=== PATIENT | female | born 1960 | race Caucasian/White ===

== ENCOUNTER 2018-06-04 16:30 | Outpatient (RCR) | payer BC, SELFPAY ==
--- NOTE | 2018-01-22 17:13 | HP.PTEVAL ---
Patient's Visit Information MASON BENJAMIN is a 57 year old F referred to Physical Therapy by Daniel Ca with a diagnosis of L RC tear biceps tendonitis s/p RCR 01/04. Date of Evaluation: 01/22/18 Physical Therapist: Lio Curiel DPT, OC - Visit Plan Frequency: 2x /Week Duration: 3 Months Plan: 2x/week for 10-12 weeks. PROM L shoulder and teach family if able. PROM until 02/04 then AAROM, ice and education on condition. - Subjective Subjective: L RCR 01/02 and biceps tendonitis clean up. Hurt it with years of pushing and pulling at work. Had 1 year of bad pain prior to repair. Nov first felt the pain when lifting parts at work. [employer] employee 29 years adn wants more years. Is off for a while, doctor did not specify how long. Now in a sling all the time, sleepign in it. No more abductor wedge needed. Icing daily. Has daily pain meds as needed. Oxycotin. Doing pendulum exercises 10 reps and table top cloth flexion, squeezing shoulder blades. Getting dressed is not easy but she can do it. Pulling things with R UE is difficult and slow but can do it. Can shower with R UE. R handed. Not many hobbies except walking. Enjoys riding [address]. wants to return to work. - Pain L shoulder. Pain Intensity (Out of 10): 8 Pain Intensity Range: 6, 8 Comment: constant - Objective PROM flexion 115, 90 abd, 35 ext rotationa ll with firm endfeels adn slight pain. Scapula moving well, squeezes are good, full elbow AROM on L slowly. Tendes to hold scap forward and elevated and tense in L UE. Strength in elbow and shoulder not tested. No concerns from patient with incision, no signs of excessive redness heat or swelling. Doffed brace I, Needed assist to Don it. Good squeeze of hand with both UE. R UE AROM WNL and strength 4+/5. - Goals Goal 1:: 0-160 PROM L shoulder Goal Time Frame: 2-4 Weeks Goal 2:: AROM WNL without hesitation Goal Time Frame: 6-8 Weeks Goal 3:: Pt sleep without interruption in bed Goal Time Frame: 4-6 Weeks Goal 4:: Pt dress I and don sling I Goal Time Frame: 2-4 Weeks Goal 5:: Plan to return to work Goal Time Frame: 12-16 Weeks - Rehabilitation Potential Physical Therapy Diagnosis: L RCR 01/04 Rehabilitation Potential: Good - Anticipated Interventions Patient/Client Instruction: Educate patient on: Condition, Plan of Care For the Purpose of:: To decrease pain, To increase ROM, To improve ability of physical actions for home/community/work/leisure Therapeutic Exercise to Include: Passive ROM Comment: GUEVARAOM in February For the Purpose of:: To decrease pain, To increase ROM Manual Therapy Techniques to Include: Scar massage, Passive ROM For the Purpose of:: To increase ROM Cryotherapy (ice pack, ice massage): Yes For the Purpose of:: To decrease pain, To decrease swelling/inflammation, To increase ROM Thank you for the opportunity to evaluate your patient. For Medicare and Medicare HMO plans, please review the plan of care and approve it. It will need to be FAXED BACK to us at [phone] for Medicare purposes. Please let me know if there are questions or concerns regarding this plan of care. Physician Signature: Date:
--- NOTE | 2018-02-19 17:25 | HP.PTREVAL_ITS ---
Daniel Ca, It has been my pleasure to treat MASON BENJAMIN over the last 9 visits for L RC tear biceps tendonitis s/p RCR 01/04. Please see the progress note below for an update on the physical therapy plan of care! Subjective: Ouchy. Biceps tendon is mostly ouchy . Out of sling. Saw doctor in 02/14 adn is now out of sling. Feels stiff in a.m. Loosens up with exercises. Objective/Function: 130 PROM flexion limited by soreness,. 125 abd limtied by soreness. 58 ext rotation limited by soreness. Feels worse lying on back then walking. Plan Plan: hold all exercises except scap circles adn squeezes, emphasize postrue and avoid use of L UE. Emphasize getting pain down vs HEP. If doign well (0-2 /10 pain), then reinitiate stick supine flexiona dn ext rotation later in week and progress slowly emphasizing postrue and relaxation. Continue AAROM as tolerated and move toward isometric strength. 1-2x/week for 4-8 weeks. Fair prognosis Goals Goal 1:: 0-160 PROM L shoulder Goal Time Frame: 2-4 Weeks Goal Progress: Progressing Goal 2:: AROM WNL without hesitation Goal Time Frame: 6-8 Weeks Goal 3:: Pt sleep without interruption in bed Goal Time Frame: 4-6 Weeks Goal 4:: Pt dress I and don sling I Goal Time Frame: 2-4 Weeks Goal Progress: Goal Met Goal 5:: Plan to return to work Goal Time Frame: 12-16 Weeks Anticipated Interventions Patient/Client Instruction: Educate patient on: Condition, Plan of Care For the Purpose of:: To decrease pain, To increase ROM, To improve ability of ph ysical actions for home/community/work/leisure Therapeutic Exercise to Include: Passive ROM Comment: AAROM in February For the Purpose of:: To decrease pain, To increase ROM Manual Therapy Techniques to Include: Scar massage, Passive ROM For the Purpose of:: To increase ROM Cryotherapy (ice pack, ice massage): Yes For the Purpose of:: To decrease pain, To decrease swelling/inflammation, To increase ROM Please do not hesitate to contact me at [phone] by phone or if you have questions or concerns regarding this new plan of care! Sincerely, Lio Curiel DPT, OC
--- NOTE | 2018-03-19 17:25 | HP.PTREVAL ---
Daniel Ca, It has been my pleasure to treat MASON BENJAMIN over the last 17 visits for L RC tear biceps tendonitis s/p RCR 01/04. Please see the progress note below for an update on the physical therapy plan of care! Subjective: Pain level is down, none , just stiff. Doctor and pt very happy with progress. HEP includes at this time edd stick OH supine and standing. Sees again May 14. Sleeping OK in chair as it is more comfortable. 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 Objective/Function: Full AROM L UE to 150 flexion and abductiona nd 70 ext rotation and L5 IR, stiff at end range. Weak to MMR flexiona dn abd and er and ir all at 3+ Plan Plan: 1-2x/week for 4 weeks for progression of in clinic adn home strength Goals Goal 1:: 0-160 PROM L shoulder Goal Time Frame: 2-4 Weeks Goal Progress: Progressing Goal 2:: AROM WNL without hesitation Goal Time Frame: 6-8 Weeks Goal Progress: Goal Met Goal 3:: Pt sleep without interruption in bed Goal Time Frame: 4-6 Weeks Goal Progress: in chair Goal 4:: Pt dress I and don sling I Goal Time Frame: 2-4 Weeks Goal Progress: Goal Met Goal 5:: Plan to return to work Goal Time Frame: 12-16 Weeks Goal Progress: Progressing Anticipated Interventions Patient/Client Instruction: Educate patient on: Condition, Plan of Care For the Purpose of:: To decrease pain, To increase ROM, To improve ability of physical actions for home/community/work/leisure Therapeutic Exercise to Include: Passive ROM Comment: AAROM in February For the Purpose of:: To decrease pain, To increase ROM Manual Therapy Techniques to Include: Scar massage, Passive ROM For the Purpose of:: To increase ROM Cryotherapy (ice pack, ice massage): Yes For the Purpose of:: To decrease pain, To decrease swelling/inflammation, To increase ROM Please do not hesitate to contact me at [phone] by phone or if you have questions or concerns regarding this new plan of care! Sincerely, Lio Curiel, DPT, OCS, CSCS
--- NOTE | 2018-04-16 18:02 | HP.PTREVAL ---
Daniel Ca, It has been my pleasure to treat MASON BENJAMIN over the last 21 visits for L RC tear biceps tendonitis s/p RCR 01/04. Please see the progress note below for an update on the physical therapy plan of care! Subjective: Gets some pain in L anterior shoulder. No pain just feels tight adn fatigues easily. GTB ex daily 3x10. Sleep is OK in bed. May 14. Off work until then. Activities t home are normal. Has not mopped on hands and knees yet. Objective/Function: Full aROM L shoulder to 160, IR is good but has some slight FW tipping of scap on L as compensation. Strength is 4+ bi and tri, 4- er, 4 IR adn 4- flexiona dn abd LLA. Plan Plan: weekly x3-4 for progression of HEP...next session WB quadruped and LLA felx/abd S/L ER to tolerance, then OH strength. Goals Goal 1:: 0-160 PROM L shoulder Goal Time Frame: 2-4 Weeks Goal Progress: Goal Met Goal 2:: AROM WNL without hesitation Goal Time Frame: 6-8 Weeks Goal Progress: Goal Met Goal 3:: Pt sleep without interruption in bed Goal Time Frame: 4-6 Weeks Goal Progress: Goal Met Goal 4:: Pt dress I and don sling I Goal Time Frame: 2-4 Weeks Goal Progress: Goal Met Goal 5:: Plan to return to work Goal Time Frame: 12-16 Weeks Goal Progress: Progressing Goal 6:: Pt show 4/5 flexion /abd/er strength adn able to WB L UE without pain to return to work. Goal Time Frame: 2-4 Weeks Anticipated Interventions Patient/Client Instruction: Educate patient on: Condition, Plan of Care For the Purpose of:: To decrease pain, To increase ROM, To improve ability of physical actions for home/community/work/leisure Therapeutic Exercise to Include: Passive ROM Comment: SEAN in February For the Purpose of:: To decrease pain, To increase ROM Manual Therapy Techniques to Include: Scar massage, Passive ROM For the Purpose of:: To increase ROM Cryotherapy (ice pack, ice massage): Yes For the Purpose of:: To decrease pain, To decrease swelling/inflammation, To increase ROM Please do not hesitate to contact me at [phone] by phone or if you have questions or concerns regarding this new plan of care! Sincerely, Lio Curiel, DPT, OCS, CSCS
--- NOTE | 2018-05-07 11:39 | HP.PTREVAL ---
Daniel Ca, It has been my pleasure to treat MASON BENJAMIN over the last 24 visits for L RC tear biceps tendonitis s/p RCR 01/04. Please see the progress note below for an update on the physical therapy plan of care! Subjective: Stiff this morning with movement, slept on it last night. Doing exercises regularly but didn't help much today. This is an unusual day. Getting stronger and doing exercises regualrly. Activities at home are normal. Pain is 0/10. To doctor May 14. 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 Objective/Function: 60 L rotation 70 R ext rotation,. 160 abductiona dn flexion. Full IR without pain. Strength L shoulder is 4+ abd and flexion at 90, 4 ext rotatuiona dn 5/5 IR, at 90 degree abd ext rotation is 4 adn IR is 4+. 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 BRAVO EE DOCTOR NEXT WEEK. Plan Plan: PT TO SEE DOCTOR IN ONE WEEK AND ATTEMPT TO RETURN TO WORK AFTER THAT IF ALLOWED. WILL F/U FOR D/C/EX PROGRESSION IN A MONTH AND CALL PRIOR IF ANYTHING GOES THE WRONG WAY. Goals Goal 1:: Returned to wrok without major concerns of pain or injury Goal Time Frame: 2-4 Weeks Goal Progress: NEW GOAL Goal 2:: AROM WNL without hesitation Goal Time Frame: 6-8 Weeks Goal Progress: Goal Met Goal 3:: Pt sleep without interruption in bed Goal Time Frame: 4-6 Weeks Goal Progress: Goal Met Goal 4:: Pt dress I and don sling I Goal Time Frame: 2-4 Weeks Goal Progress: Goal Met Goal 5:: Plan to return to work Goal Time Frame: 12-16 Weeks Goal Progress: Goal Met Goal 6:: Pt show 4/5 flexion /abd/er strength adn able to WB L UE without pain to return to work. Goal Time Frame: 2-4 Weeks Goal Progress: Goal Met Anticipated Interventions Patient/Client Instruction: Educate patient on: Condition, Plan of Care For the Purpose of:: To decrease pain, To increase ROM, To improve ability of physical actions for home/community/work/leisure Therapeutic Exercise to Include: Passive ROM Comment: SEAN in February For the Purpose of:: To decrease pain, To increase ROM Manual Therapy Techniques to Include: Scar massage, Passive ROM For the Purpose of:: To increase ROM Cryotherapy (ice pack, ice massage): Yes For the Purpose of:: To decrease pain, To decrease swelling/inflammation, To increase ROM Please do not hesitate to contact me at [phone] by phone or if you have questions or concerns regarding this new plan of care! Sincerely, Lio Curiel, DPT, OCS, CSCS
--- NOTE | 2018-06-04 16:50 | HP.PTDCSUM ---
HP - PT D/C Summary It has been my pleasure to treat MASON BENJAMIN under orders from Daniel Ca, for the diagnosis of L RC tear biceps tendonitis s/p RCR 01/04 for a total of 25 visit(s). Discharge Date: 06/04/18 Please see the following information for a summary of their discharge status. - Subjective Subjective: Shoulder stiff adn sore since back to work on 05/14. Doctor told her it would hurt. Hurts 5/10 after work for about an hour. Then it feels OK. Exercises going OK with GTB x10. Daily. Sleep is OK. No other activities bother it. 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 - Pain L shoulder. Pain Intensity (Out of 10): 0 - Overall Improvement % Improvement: 90 - Objective Objective/Function: 60 ext rotation, full IR, 160 abd and flexion. Strength is 4+/5 L shoulder except ext rotationa dn triceps 4/5. Good function and doing well. - Goals Goal 1:: Returned to wrok without major concerns of pain or injury Goal Progress: Goal Met Goal 2:: AROM WNL without hesitation Goal Progress: Goal Met Goal 3:: Pt sleep without interruption in bed Goal Progress: Goal Met Goal 4:: Pt dress I and don sling I Goal Progress: Goal Met Goal 5:: Plan to return to work Goal Progress: Goal Met Goal 6:: Pt show 4/5 flexion /abd/er strength adn able to WB L UE without pain to return to work. Goal Progress: Goal Met - Plan Plan: D/C - D/C Information Discharge Comments: Pt doing well with near full ROM and quality strength. Tolerating work as ecpected adn willc all doctor if things worsen. expecting slow improvements over the next 3-4 months with continued exercises. If there are questions or concerns regarding this patient's physical therapy, please feel free to call me at [phone]. Thank you for the referral of this patient. Sincerely, Lio Curiel, DPT, OCS, CSCS
== END 2018-06-04 19:00 | disposition home or self-care (01) ==
LOC: PT 16:30
PROVIDERS: Family Provider Preventive Medicine Occupational Medicine; PCP Preventive Medicine Occupational Medicine; Referring Provider Orthopaedic Surgery Hand Surgery; Visit Provider Orthopaedic Surgery Hand Surgery
DX: M75.22 Bicipital tendinitis, left shoulder (principal); M75.102 Unspecified rotator cuff tear or rupture of left shoulder, not specified as traumatic
CPT/HCPCS: 97110; 97140; 97162; 97530

== ENCOUNTER → 2018-07-17 16:42 | Outpatient (CLI) | payer BC, SELFPAY ==
--- NOTE | 2018-07-17 16:50 | RAD_ITS ---
STUDY: X-RAY - ORBITS REASON FOR EXAM: Female, 58 years old. This study is being performed as a clearance examination for exclusion of orbital metal, prior to the performance of an MRI examination. TECHNIQUE: 2 view(s) of the orbits were obtained. COMPARISON: None. FINDINGS: Normal bilateral orbits without a metallic orbital foreign body. Normal visualized facial bones. Normal paranasal sinuses. The soft tissue structures are unremarkable. RAD/Orbits for Foreign Body IMPRESSION: No demonstrated metallic orbital foreign body. The patient is cleared for an MRI examination. Electronically Signed: Donato Gonsales MD at 17:05 EDT , Service support ,
== END ==
PROVIDERS: Family Provider Preventive Medicine Occupational Medicine; PCP Preventive Medicine Occupational Medicine; Referring Provider Orthopaedic Surgery Hand Surgery; Visit Provider Orthopaedic Surgery Hand Surgery
DX: Z01.818 Encounter for other preprocedural examination (principal); M75.102 Unspecified rotator cuff tear or rupture of left shoulder, not specified as traumatic; G56.13 Other lesions of median nerve, bilateral upper limbs
CPT/HCPCS: 70030

== ENCOUNTER 2018-09-04 17:30 | Outpatient (RCR) | payer BC, SELFPAY ==
--- NOTE | 2018-08-14 17:29 | HP.PTEVAL ---
Patient's Visit Information MASON BENJAMIN is a 58 year old F referred to Physical Therapy by MONCHO SIMS with a diagnosis of radiculopathy of c-spine and spinal stenoisi of c-spine. Date of Evaluation: 08/14/18 Physical Therapist: MANPREET Gaspar - Visit Plan Frequency: 2x /Week Duration: 4 Weeks Plan: 2X/ week for 3-4 weeks for postural exercises, US to the c-spine paraspinals and mid trap region with MT to the same X 3 sessions, symptoms free stretching wtih HEP. - Subjective Findings: Hurt Bicep Set 2016 at work. Got her bicep and RC fixed on the L shoulder in Dec 2017. Currently she has L sided neck pain and R occ neck pain. L hands are numb and tingling. SHe can get N&T B hands and legs. It is mostly L sided but can be R sided. SHe had an MRI and it showed a pinch nerve and Dr wants PT. She has to stand for 10 hours at work and she is worse after that unless she can sit down inbetween. She reports that she has not noticed any weakness in B legs or arms. She can sleep at night. She has a body pillow that she had for her shoulder. She reports that she get PADILLA sometimes (slight) and she usually does not get those. SHe is R handed. Not complaining of pain in arms or neck today but states that it is more annoying and she occ gets some burning. Steroids did not help. Pt feels like there are bugs crawling on her legs. - Pain neck pain Pain Intensity (Out of 10): 0 R arm pain Pain Intensity (Out of 10): 0 L arm pain Pain Intensity (Out of 10): 0 - Objective C-spine AROM: flex 100%, ext 75%, Rot B 75%, SB B 75%. Posture: sit s with fw head and rounded shoulders. UE MMT: Shld flex, abd 4/5 B, ER L 4-/5 and R 4/5, IR B 4/5. Bicep relfexes: 2+/3 B. R handed;;; Behavioral Therapy Coordinator strength: R 50# and L 51#. No pain with sub occip release. Slight distraction caused R hand to feel worse and L hand to feel better. Supine neck retraction caused B feet to get N&T. Pt is able to walk on heels and toes. - Goals Goal 1:: I HEP Goal Time Frame: 4-6 Weeks Goal 2:: Decrease neck and B arm pain by 50% Goal Time Frame: 4-6 Weeks Goal 3:: Sit with upright posture during treatment sessons Goal Time Frame: 4-6 Weeks - Rehabilitation Potential Rehabilitation Potential: Good - Anticipated Interventions Thank you for the opportunity to evaluate your patient. For Medicare and Medicare HMO plans, please review the plan of care and approve it. It will need to be FAXED BACK to us at [phone] for Medicare purposes. For Medicare only, by signing this I certify the plan of care. Please let me know if there are questions or concerns regarding this plan of care. Physician Signature: Date:
--- NOTE | 2018-09-04 18:00 | HP.PTDCSUM ---
HP - PT D/C Summary It has been my pleasure to treat MASON BENJAMIN under orders from MONCHO SIMS, for the diagnosis of radiculopathy of c-spine and spinal stenoisi of c-spine for a total of 7 visit(s). Discharge Date: 09/04/18 Please see the following information for a summary of their discharge status. - Subjective Subjective: Pt reports that she is still getting N&T in arms and R espinal. Her feet are some N&T. Pt pain comes and goes and yesterday was a bad day and she could hardly walk but the day before she could stand. - Pain neck pain Pain Intensity (Out of 10): 5 R arm pain Pain Intensity (Out of 10): 5 L arm pain Pain Intensity (Out of 10): 5 - Overall Improvement % Improvement: 0 - Objective Objective/Function: Posture: sit with more upright posture. Discussed lack of progress and how important it is to discuss symptoms with MD and to follow up peewee ( September 11 possible). - Goals Goal 1:: I HEP Goal Progress: Goal Met Goal 2:: Decrease neck and B arm pain by 50% Goal Progress: Not Progressing Goal 3:: Sit with upright posture during treatment sessons Goal Progress: Goal Met - Plan Plan: DC PT for physician reassessment. - D/C Information Discharge Comments: DC PT If there are questions or concerns regarding this patient's physical therapy, please feel free to call me at [phone]. Thank you for the referral of this patient. Sincerely, Beronica Chacon, MANPREET
== END 2018-09-04 19:00 | disposition home or self-care (01) ==
LOC: PT 17:30
PROVIDERS: Family Provider Preventive Medicine Occupational Medicine; PCP Preventive Medicine Occupational Medicine
DX: M54.12 Radiculopathy, cervical region (principal); M48.02 Spinal stenosis, cervical region
CPT/HCPCS: 97035; 97110; 97140; 97162; 97530

== ENCOUNTER → 2018-09-19 | Outpatient (CLI) | payer BC, SELFPAY ==
--- NOTE | 2018-09-19 16:42 | EKG12_ITS ---
Test Reason : PRE OP Blood Pressure : / mmHG Vent. Rate : 062 BPM Atrial Rate : 062 BPM P-R Int : 170 ms QRS Dur : 076 ms QT Int : 408 ms P-R-T Axes : 068 016 061 degrees QTc Int : 414 ms Sinus rhythm with Premature atrial complexes Otherwise normal ECG Confirmed by ARYAN HARO, FLOR ([id number]), editorial cartoonist FRANCES AYALA ([id number]) on 09/24/2018 2:22:31 PM Referred By: MONCHO SIMS Confirmed By:FLOR BAEZA MD
[2018-09-19 17:07] LABS: Absolute Lymphocyte Count 2.26 X10^3/ul (0.83-4.51); Absolute Neutrophil Count 5.2 X10^3/uL (2.0-7.7); Basophil# 0.06 X10^3/uL; Basophil% 0.7 % (0-1); Eosinophil# 0.23 X10^3/uL; Eosinophils% 2.7 % (0-5); Hematocrit 36.9 % (37-47); Hemoglobin 12.1 g/dl (12.0-15.0); Lymphocyte # 2.26 X10^3/ul (4.0); Lymphocyte % 26.3 % (19-41); Mean Corp Hgb Conc 32.8 g/gl (32-36); Mean Corpuscular Hgb 29.7 pg (27.0-32.0); Mean Corpuscular Volume 90.7 fL (81-99); Mean Platelet Vol. 10.7 fl (6.2-12.0); Monocyte# 0.82 X10^3/uL; Monocyte% 9.5 % (0-10); Neutrophil # 5.22 X10^3/uL (2.7-7.7); Neutrophil % 60.7 % (47-70); Platelet Count 178 K/mm3 (150-450); RBC Distribution Width CV 12.8 % (11.6-14.6); RBC Distribution Width SD 42.5 fl (35.1-43.9); Red Blood Count 4.07 M/mm3 (4.2-5.4); White Blood Count 8.6 K/mm3 (4.4-11.0)
[2018-09-19 17:12] LABS: POSITIVE COUNT NO; POSITIVE DIFFERENTIAL NO; POSITIVE MORPHOLOGY NO
[2018-09-19 17:34] LABS: Anion Gap 8 (5-15); BUN 15 mg/dL (7-18); BUN/Creat Ratio 22.5 RATIO (10-20); Calcium,Total 8.9 mg/dL (8.5-10.1); Chloride 105 mmol/L (98-107); Creatinine, Serum 0.67 mg/dL (0.55-1.02); EST Glomerular Filtration Rate 96 mL/min (>60); Est Glom Filt Rate - Afr Amer 116 mL/min (>60); Glucose 81 mg/dL (74-106); Potassium 3.8 mmol/L (3.5-5.1); Sodium Level 140 mmol/L (136-145)
== END | disposition home or self-care (01) ==
PROVIDERS: Family Provider Preventive Medicine Occupational Medicine; PCP Preventive Medicine Occupational Medicine
DX: M54.12 Radiculopathy, cervical region (principal); M48.02 Spinal stenosis, cervical region; M51.17 Intervertebral disc disorders with radiculopathy, lumbosacral region
CPT/HCPCS: 36415; 80048; 85025; 93005

== ENCOUNTER 2018-12-19 09:00 | Outpatient (RCR) | payer BC, SELFPAY ==
--- NOTE | 2018-11-07 13:48 | HP.PTEVAL_ITS ---
Patient's Visit Information MASON BENJAMIN is a 58 year old F referred to Physical Therapy by MONCHO DOOLEY with a diagnosis of RADICULOPATHY CERVICAL,SPINAL STENOSIS ,CERVICAL ,INTERVERTBRAL DISC. Date of Evaluation: 11/07/18 Physical Therapist: Jose Oden, PT, Cert MDT, OCS - Visit Plan Frequency: 2x /Week Duration: 6 Weeks Plan: S/P CERVICAL FUSION SEPTEMBER 25. PT INERVENTION CERVICAL ROM/POSTURAL EX'S,STRENGTHENING,MODALITIES PRN - Subjective Findings: This 58 y/o female presents to physical therapy with cervical radiculopathy . This patient underwent s/p cervical fusion C5-6 anterior approach on September [address] Dooley at [facility]. Patient d/c DOS with cervical collar ~ 6 weeks . Then seen on 11/06/18 doing well x-rays looked ,and no lifting heaving overhead. Prior to surgery cervical pain and radicular symptoms. Pateint had MRI stenosis . Patient tried PT not helping. Pateint denies PADILLA/Tinnutis/nausea. Patient has parathesia/tingling in hands . Pateint sleeping okay. Pateint cervical surgery affects ability to RTW ,housework tasks . Patient RTD Jan 03.Patient condition surgery affects QOL. SOCAIL: . 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 INSCION: anterior approach intact. NEURO: c/o parathesai/tingling fingers ,reflexes C5-6 1/3,C7 2/3. PALAPTION: tender UT/levator. AROM : BUE WFL. CERVICAL ROM: flexion min loss,lateral flexion/rotation mod,extension. MMT: BUE GROSSLY 4/5,shoulder 4-/5 - Special Tests C/S Radiculapathy - Left Upper limb tension test: Negative C/S Radiculapathy - Right Upper limb tension test: Negative - Goals Goal 1:: Independant with HEP Goal Time Frame: 4-6 Weeks Goal 2:: Improve posture for ADL'S and job demnads . Goal Time Frame: 4-6 Weeks Goal 3:: Patient improve cervical ROM to improve function of recovery Goal Time Frame: 4-6 Weeks Goal 4:: Patient increase strength UE to 4+/5 to improve function with job ddemnads. Goal Time Frame: 4-6 Weeks Goal 5:: Patient to improve neck owestry score by 5 points to improve QOL and RTW. Goal Time Frame: 4-6 Weeks - Rehabilitation Potential Physical Therapy Diagnosis: This patient underwent s/p cervial fusion with decrease strength,ROM and function to return to job demands thus benifit from sk illed PT Rehabilitation Potential: Good - Anticipated Interventions Patient/Client Instruction: Educate patient on: Condition, Plan of Care For the Purpose of:: To decrease pain, To increase ROM, To improve muscle performance and motor function, To improve ability to perform ADL's, To increase tolerance to activity/condition/position, To improve ability of physical actions for home/community/work/leisure, To improve health of tissue, To decrease soft tissue restriction, To increase flexibility/ROM, To improve ability to perform tasks related to life management Therapeutic Exercise to Include: Strength training, Postural training, Flexibilty training, Active ROM For the Purpose of:: To decrease pain, To increase ROM, To improve muscle performance and motor function, To improve ability to perform ADL's, To improve ability of physical actions for home/community/work/leisure, To improve health of tissue, To decrease soft tissue restriction, To increase flexibility/ROM, To improve ability to perform tasks related to life management TENS: Yes IF ES: Yes Cryotherapy (ice pack, ice massage): Yes Thermo therapy (hot pack): Yes Ultrasound (thermal/non thermal): Yes For the Purpose of:: To decrease pain, To increase ROM, To improve health of tissue, To decrease soft tissue restriction, To increase flexibility/ROM Thank you for the opportunity to evaluate your patient. For Medicare and Medicare HMO plans, please review the plan of care and approve it. It will need to be FAXED BACK to us at [phone] for Medicare purposes. For Medicare only, by signing this I certify the plan of care. Please let me know if there are questions or concerns regarding this plan of care. Physician Signature: Date:
--- NOTE | 2018-12-19 09:44 | HP.PTDCSUM ---
HP - PT D/C Summary It has been my pleasure to treat MASON BENJAMIN under orders from MONCHO SIMS, for the diagnosis of RADICULOPATHY CERVICAL,SPINAL STENOSIS ,CERVICAL ,INTERVERTBRAL DISC for a total of 12 visit(s). Discharge Date: 12/19/18 Please see the following information for a summary of their discharge status. - Subjective Subjective: Patient reports parathesia lower legs and fingers. Doing better overall. - Pain Bilateral Pain Intensity (Out of 10): 3 - Overall Improvement % Improvement: 60 - Objective Objective/Function: POSTURE: WFL. PALPATION: TENDER UT. NEURO: c/o parathesia in fingers. AROM: BUE. MMT: BUE 4/5. CERVICAL ROM: flexion min loss,rotation/lateral flexion mod loss,extension mod loss - Goals Goal 1:: Independant with HEP Goal Progress: Goal Met Goal 2:: Improve posture for ADL'S and job demnads . Goal Progress: Goal Met Goal 3:: Patient improve cervical ROM to improve function of recovery Goal Progress: Goal Met Goal 4:: Patient increase strength UE to 4+/5 to improve function with job ddemnads. Goal Progress: Progressing Goal 5:: Patient to improve neck owestry score by 5 points to improve QOL and RTW. Goal Progress: Goal Met - Plan Plan: D/C TO HEP - D/C Information Discharge Comments: HEP If there are questions or concerns regarding this patient's physical therapy, please feel free to call me at [phone]. Thank you for the referral of this patient. Sincerely, Jose Oden, PT, Cert MDT, OCS
== END 2018-12-19 10:32 | disposition home or self-care (01) ==
LOC: PT 09:00
PROVIDERS: Family Provider Preventive Medicine Occupational Medicine; PCP Preventive Medicine Occupational Medicine
DX: M54.12 Radiculopathy, cervical region (principal); M48.02 Spinal stenosis, cervical region
CPT/HCPCS: 97110; 97162; 97530

== ENCOUNTER 2019-05-15 05:29 | Emergency (ER) | payer BC, SELFPAY ==
[2019-05-15 05:35] VITALS: BP 140/90; PULSE 81; RESP 20; TEMP 36.8; O2SAT 94; BMI 29.0
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
[2019-05-15 08:00] VITALS: BP 116/74; PULSE 65; RESP 16; O2SAT 94
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
[2019-05-15 08:22] LABS: Absolute Lymphocyte Count 1.04 X10^3/uL (0.83-4.51); Absolute Neutrophil Count 10.3 X10^3/uL (2.0-7.7); Basophil# 0.04 X10^3/uL; Basophil% 0.3 % (0-1); Eosinophil# 0.01 X10^3/uL; Eosinophils% 0.1 % (0-5); Hematocrit 44.4 % (37-47); Hemoglobin 14.3 g/dL (12.0-15.0); Lymphocyte # 1.04 X10^3/ul (4.0); Lymphocyte % 8.5 % (19-41); Mean Corp Hgb Conc 32.2 g/dL (32-36); Mean Corpuscular Hgb 29.7 pg (27.0-32.0); Mean Corpuscular Volume 92.3 fL (81-99); Mean Platelet Vol. 10.6 fl (6.2-12.0); Monocyte# 0.78 X10^3/uL; Monocyte% 6.4 % (0-10); NRBC Flagged by Analyzer 0 % (0-5); Neutrophil % 84.5 % (47-70); Platelet Count 205 K/mm3 (150-450); RBC Distribution Width CV 12.1 % (11.6-14.6); RBC Distribution Width SD 41.1 fl (35.1-43.9); Red Blood Count 4.81 M/mm3 (4.2-5.4); White Blood Count 12.2 K/mm3 (4.4-11.0)
--- NOTE | 2019-05-15 08:26 | NURSING ---
FAXED MRI PAPERS TO THEM
[2019-05-15 08:30] LABS: BUN 10 mg/dL (7-18); Creatinine, Serum 0.58 mg/dL (0.55-1.02); EST Glomerular Filtration Rate 112 mL/min (>60); Estimated Creatinine Clearance 95.35 ml/min; Glucose 108 mg/dL (74-106)
[2019-05-15 08:31] LABS: Anion Gap 5 (5-15); BUN/Creat Ratio 17.2 RATIO (10-20); Calcium,Total 9.5 mg/dL (8.5-10.1); Chloride 108 mmol/L (98-107); Est Glom Filt Rate - Afr Amer 136 mL/min (>60); Potassium 4.1 mmol/L (3.5-5.1); Sodium Level 141 mmol/L (136-145)
[2019-05-15 10:18] VITALS: BP 150/73; PULSE 71; RESP 68; O2SAT 95
== END 2019-05-15 10:42 | disposition home or self-care (01) ==
PROVIDERS: Emergency Medicine; Emergency Provider Emergency Medicine; PCP Preventive Medicine Occupational Medicine
DX: S80.11XA Contusion of right lower leg, initial encounter (principal); S09.90XA Unspecified injury of head, initial encounter; E03.9 Hypothyroidism, unspecified; V89.2XXA Person injured in unspecified motor-vehicle accident, traffic, initial encounter; Z72.0 Tobacco use
CPT/HCPCS: 70450; 70551; 71045; 72125; 73590; 80048; 85025; 99285; A4216

== ENCOUNTER → 2020-01-09 15:12 | Outpatient (CLI) | payer BC, SELFPAY ==
[2020-01-09 15:16] LABS: Bacteria 0 SEEN /hpf (None Seen); Mucous, Urine 0 SEEN /hpf (<or=2+); Red Blood Cells-Urine 0 SEEN /hpf (0-5); Squamous Epithelial Cells - UA 0 SEEN /hpf (5-10); White Blood Cells 0 SEEN /hpf (0-5)
[2020-01-09 17:44] LABS: Absolute Lymphocyte Count 1.72 X10^3/uL (0.83-4.51); Absolute Neutrophil Count 3.4 X10^3/uL (2.0-7.7); Basophil# 0.07 X10^3/uL; Basophil% 1.2 % (0-1); Eosinophil# 0.18 X10^3/uL; Hematocrit 44.4 % (37-47); Lymphocyte # 1.72 X10^3/ul (4.0); Lymphocyte % 29.1 % (19-41); Mean Corp Hgb Conc 31.5 g/dL (32-36); Mean Corpuscular Hgb 29.4 pg (27.0-32.0); Mean Corpuscular Volume 93.1 fL (81-99); Mean Platelet Vol. 11.4 fl (6.2-12.0); Monocyte# 0.58 X10^3/uL; Monocyte% 9.8 % (0-10); NRBC Flagged by Analyzer 0 % (0-5); Neutrophil # 3.36 X10^3/uL (2.7-7.7); Neutrophil % 56.7 % (47-70); Platelet Count 191 K/mm3 (150-450); RBC Distribution Width CV 12.5 % (11.6-14.6); RBC Distribution Width SD 42.7 fl (35.1-43.9); Red Blood Count 4.77 M/mm3 (4.2-5.4); White Blood Count 5.9 K/mm3 (4.4-11.0)
[2020-01-09 17:48] LABS: Color, Urine Straw (Yellow); Glucose, Dipstick Normal (Normal); Ketone-Dipstick Negative (Negative); Leukocyte Esterase-Dipstick Negative /ul (Negative); Nitrite-Dipstick Negative (Negative); Occult Blood-Urine Negative /ul (Negative); Protein-Dipstick Negative (Negative); Specific Gravity, Urine 1.005 (1.002-1.030); Urine Bilirubin Dipstick Negative (Negative); Urine Clarity Clear (Clear); Urine Urobilinogen Normal (Normal)
[2020-01-09 18:10] LABS: ALB/GLOB Ratio 1.1 RATIO (0.9-2.4); AST(SGOT) 17 U/L (15-37); Alanine Aminotransfer ALT/SGPT 26 U/L (13-56); Alkaline Phosphatase 67 U/L (45-117); Anion Gap 5 (5-15); BUN 12 mg/dL (7-18); BUN/Creat Ratio 19.2 RATIO (10-20); Calcium,Total 9.3 mg/dL (8.5-10.1); Chloride 105 mmol/L (98-107); Cholesterol 178 mg/dL (200); Creatinine, Serum 0.62 mg/dL (0.55-1.02); EST Glomerular Filtration Rate 103 mL/min (>60); Est Glom Filt Rate - Afr Amer 124 mL/min (>60); Globulin 3.8 g/dL (2.2-4.2); Glucose 59 mg/dL (74-106); High Density Lipoprotein 75 mg/dL; Potassium 3.9 mmol/L (3.5-5.1); Protein, Total 7.8 g/dL (6.4-8.2); Sodium Level 141 mmol/L (136-145); T4 Free Direct 1.69 ng/dL (0.76-1.46); Thyroid Stim Hormone (TSH) 0.01 uIU/mL (0.358-3.74); Triglycerides 63 mg/dL; Very Low Density Lipoprotein 13 mg/dL (5-40)
[2020-01-19 21:47] LABS: Anti-Thyroglobulin AB 41.8 IU/mL (0.0-0.9); Thyroid Peroxidase AB < 9 IU/mL (0-34)
[2020-01-19 21:48] LABS: Thyroglobulin RIA 5.5 ng/mL (.)
== END ==
PROVIDERS: PCP Family Medicine; Referring Provider Family Medicine; Visit Provider Family Medicine
DX: E03.9 Hypothyroidism, unspecified (principal); Z72.0 Tobacco use
CPT/HCPCS: 36415; 80053; 80061; 81001; 84432; 84439; 84443; 85025; 86376; 86800

== ENCOUNTER → 2020-02-06 12:31 | Outpatient (CLI) | payer BC, SELFPAY ==
--- NOTE | 2020-02-06 12:32 | BI_ITS ---
MAMMOGRAPHY - BILATERAL SCREENING REASON FOR EXAM: Female, 59 years old. Routine annual screening examination. PERTINENT HISTORY: Screening TECHNIQUE: Digital bilateral breast heri (3D mammographic acquisition) in the CC and MLO projections. 2-D mediolateral oblique (MLO) and craniocaudad (CC) views of both breasts were obtained. CAD: Full Field Digital Mammography with Computer Added Detection was performed. COMPARISON: None. FINDINGS: Breast Composition: Heterogeneous There are no dominant masses or suspicious calcifications. No other significant abnormalities are identified. BI/SCREEN MAMM (CAD) W/HERI BILAT IMPRESSION: Stable bilateral screening mammogram. Yearly follow-up mammogram recommended. (A) ASSESSMENT CATEGORY: BIRADS Category 1: Negative. A letter regarding these results will be sent to the patient by the facility within 30 days. Approximately 10% of breast cancers are not detected by mammography. A normal mammogram should not delay biopsy of a clinically suspicious abnormality. [id number] Electronically Signed: Gerry Hamilton, at 17:11 EST Tel , Service support ,
== END ==
PROVIDERS: PCP Family Medicine; Referring Provider Family Medicine; Visit Provider Family Medicine
DX: Z12.31 Encounter for screening mammogram for malignant neoplasm of breast (principal)
CPT/HCPCS: 77063; 77067

== ENCOUNTER → 2020-04-07 15:42 | Outpatient (CLI) | payer BC, SELFPAY ==
[2020-04-07 18:55] LABS: T4 Free Direct 1.45 ng/dL (0.76-1.46); Thyroid Stim Hormone (TSH) 0.28 uIU/mL (0.358-3.74)
== END ==
PROVIDERS: PCP Family Medicine; Referring Provider Family Medicine; Visit Provider Family Medicine
DX: Z01.419 Encounter for gynecological examination (general) (routine) without abnormal findings (principal); E03.8 Other specified hypothyroidism
CPT/HCPCS: 36415; 84439; 84443

== ENCOUNTER → 2020-04-15 15:36 | Outpatient (CLI) | payer BC, SELFPAY ==
--- NOTE | 2020-04-15 15:45 | BD_ITS ---
STUDY: DUAL ENERGY X-RAY ABSORPTIOMETRY / DXA REASON FOR EXAM: Female, 60 years old. Patient unsure of bailey age she states she still spots. Pat is 185.1# and 64.5 and quot; a loss of .5 and quot; per pat. Has been a smoker for yrs. Takes a thyroid med. Does not exercise. TECHNIQUE: Bone Mineral Density (BMD) measurements of lumbar spine and bilateral hips were obtained. COMPARISON: None. FINDINGS: Lumbar Spine (L1-L4): g/cm2 (1.293) / T-score (0.8) / Z-score (2.1) Findings are suggestive of normal bone density with a low fracture risk. Left Femur Total: g/cm2 (1.165) / T-score (1.2) / Z-score (2.3) Left Femoral Neck: g/cm2 (1.151) / T-score (0.8) / Z-score (2.1) Right Femur Total: g/cm2 (1.134) / T-score (1.0) / Z-score (2.0) Right Femoral Neck: g/cm2 (1.030) / T-score (-0.1) / Z-score (1.3) BD/Dexa Bone Density Study IMPRESSION: The patient is considered normal as outlined below according to World Kevin Organization (WHO) criteria with a low fracture risk. Reference Information: The T-score is the number of standard deviations above or below the standard which is normal for young adults at their peak bone mineral density. The World Health Organization (WHO) interprets the T-scores as follows: Above -1 Normal bone density Between -1 and -2.5 Osteopenia Equal to / or below -2.5 Osteoporosis As a practical clinical guideline, osteopenia may be graded as follows: Mild -1 through -1.5 Moderate -1.6 through -2.0 Severe -2.1 through -2.4 The Z-score is the number of standard deviations above or below age-matched controls. A Z-score of less than -1.5 would be considered abnormal. References: 1. NIH Osteoporosis and Related Bone Diseases www osteo.org 2. International Society for Clinical Densitometry www iscd.org 3. National Osteoporosis Foundation www nof.org Electronically Signed: Abdulaziz Brizuela MD at 9:39 EST , Service support ,
== END ==
PROVIDERS: PCP Family Medicine; Referring Provider Family Medicine; Visit Provider Family Medicine
DX: Z78.0 Asymptomatic menopausal state (principal)
CPT/HCPCS: 77080

== ENCOUNTER → 2020-10-01 09:47 | Outpatient (CLI) | payer BC, SELFPAY ==
[2020-10-01 12:16] LABS: Absolute Lymphocyte Count 1.44 X10^3/uL (0.83-4.51); Absolute Neutrophil Count 3.3 X10^3/uL (2.0-7.7); Basophil# 0.05 X10^3/uL; Basophil% 0.9 % (0-1); Eosinophil# 0.12 X10^3/uL; Eosinophils% 2.2 % (0-5); Hematocrit 42.1 % (37-47); Hemoglobin 13.6 g/dL (12.0-15.0); Lymphocyte # 1.44 X10^3/ul (0.83-4.51); Lymphocyte % 26.4 % (19-41); Mean Corp Hgb Conc 32.3 g/dL (32-36); Mean Corpuscular Hgb 30.1 pg (27.0-32.0); Mean Corpuscular Volume 93.1 fL (81-99); Mean Platelet Vol. 11.2 fl (6.2-12.0); Monocyte# 0.51 X10^3/uL; Monocyte% 9.4 % (0-10); NRBC Flagged by Analyzer 0 % (0-5); Neutrophil # 3.32 X10^3/uL (2.7-7.7); Neutrophil % 60.9 % (47-70); Platelet Count 191 K/mm3 (150-450); RBC Distribution Width CV 12.2 % (11.6-14.6); RBC Distribution Width SD 42.4 fl (35.1-43.9); Red Blood Count 4.52 M/mm3 (4.2-5.4); White Blood Count 5.5 K/mm3 (4.4-11.0)
[2020-10-01 12:39] LABS: ALB/GLOB Ratio 1.1 RATIO (0.9-2.4); AST(SGOT) 27 U/L (15-37); Alanine Aminotransfer ALT/SGPT 27 U/L (13-56); Albumin, Serum 3.8 g/dL (3.2-5.0); Alkaline Phosphatase 63 U/L (45-117); Anion Gap 7 (5-15); BUN 6 mg/dL (7-18); BUN/Creat Ratio 10.3 RATIO (10-20); Calcium,Total 8.8 mg/dL (8.5-10.1); Chloride 103 mmol/L (98-107); Cholesterol 178 mg/dL (200); Creatinine, Serum 0.58 mg/dL (0.55-1.02); EST Glomerular Filtration Rate 111 mL/min (>60); Est Glom Filt Rate - Afr Amer 134 mL/min (>60); Globulin 3.4 g/dL (2.2-4.2); Glucose 92 mg/dL (74-106); High Density Lipoprotein 68 mg/dL; Potassium 3.8 mmol/L (3.5-5.1); Protein, Total 7.2 g/dL (6.4-8.2); Sodium Level 139 mmol/L (136-145); Thyroid Stim Hormone (TSH) 0.44 uIU/mL (0.358-3.74); Triglycerides 47 mg/dL; Very Low Density Lipoprotein 9 mg/dL (5-40)
== END ==
PROVIDERS: PCP Family Medicine; Referring Provider Family Medicine; Visit Provider Family Medicine
DX: E03.8 Other specified hypothyroidism (principal)
CPT/HCPCS: 36415; 80053; 80061; 84439; 84443; 85025

== ENCOUNTER → 2021-01-01 07:38 | Outpatient (CLI) | payer BC, SELFPAY ==
[2021-01-01 07:46] LABS: Bacteria 0 SEEN /hpf (None Seen); Mucous, Urine 0 SEEN /hpf (<or=2+); Red Blood Cells-Urine 0 SEEN /hpf (0-5); Squamous Epithelial Cells - UA 0 SEEN /hpf (5-10); White Blood Cells 0 SEEN /hpf (0-5)
[2021-01-01 08:52] LABS: Absolute Lymphocyte Count 1.51 X10^3/uL (0.83-4.51); Absolute Neutrophil Count 3.2 X10^3/uL (2.0-7.7); Basophil# 0.06 X10^3/uL; Basophil% 1.1 % (0-1); Eosinophil# 0.16 X10^3/uL; Eosinophils% 2.9 % (0-5); Hematocrit 42.8 % (37-47); Hemoglobin 13.7 g/dL (12.0-15.0); Lymphocyte # 1.51 X10^3/ul (0.83-4.51); Lymphocyte % 27.7 % (19-41); Mean Corpuscular Hgb 30.2 pg (27.0-32.0); Mean Corpuscular Volume 94.3 fL (81-99); Mean Platelet Vol. 11.3 fl (6.2-12.0); Monocyte# 0.48 X10^3/uL; Monocyte% 8.8 % (0-10); NRBC Flagged by Analyzer 0 % (0-5); Neutrophil # 3.24 X10^3/uL (2.7-7.7); Neutrophil % 59.3 % (47-70); Platelet Count 200 K/mm3 (150-450); RBC Distribution Width CV 12.4 % (11.6-14.6); RBC Distribution Width SD 43.3 fl (35.1-43.9); Red Blood Count 4.54 M/mm3 (4.2-5.4); White Blood Count 5.5 K/mm3 (4.4-11.0)
[2021-01-01 08:52] LABS: Color, Urine Yellow (Yellow); Glucose, Dipstick Normal (Normal); Ketone-Dipstick Negative (Negative); Leukocyte Esterase-Dipstick Negative /ul (Negative); Nitrite-Dipstick Negative (Negative); Occult Blood-Urine Negative /ul (Negative); Protein-Dipstick Negative (Negative); Urine Bilirubin Dipstick Negative (Negative); Urine Clarity Clear (Clear); Urine Urobilinogen Normal (Normal)
[2021-01-01 09:37] LABS: ALB/GLOB Ratio 0.9 RATIO (0.9-2.4); AST(SGOT) 20 U/L (15-37); Alanine Aminotransfer ALT/SGPT 20 U/L (13-56); Albumin, Serum 3.6 g/dL (3.2-5.0); Alkaline Phosphatase 64 U/L (45-117); Anion Gap 6 (5-15); BUN 12 mg/dL (7-18); BUN/Creat Ratio 17.1 RATIO (10-20); Calcium,Total 8.9 mg/dL (8.5-10.1); Chloride 104 mmol/L (98-107); Cholesterol 193 mg/dL (200); EST Glomerular Filtration Rate 89 mL/min (>60); Est Glom Filt Rate - Afr Amer 108 mL/min (>60); Globulin 3.9 g/dL (2.2-4.2); Glucose 85 mg/dL (74-106); High Density Lipoprotein 75 mg/dL; Potassium 3.8 mmol/L (3.5-5.1); Protein, Total 7.5 g/dL (6.4-8.2); Sodium Level 140 mmol/L (136-145); T4 Free Direct 1.25 ng/dL (0.76-1.46); Thyroid Stim Hormone (TSH) 3.16 uIU/mL (0.358-3.74); Triglycerides 52 mg/dL; Very Low Density Lipoprotein 10 mg/dL (5-40)
== END ==
PROVIDERS: PCP Family Medicine; Referring Provider Family Medicine; Visit Provider Family Medicine
DX: E03.8 Other specified hypothyroidism (principal); Z72.0 Tobacco use
CPT/HCPCS: 36415; 80053; 80061; 81001; 84439; 84443; 85025

== ENCOUNTER 2021-05-20 11:56 | Outpatient (CLI) | payer BC, SELFPAY ==
--- NOTE | 2021-05-20 11:57 | BI_ITS ---
MAMMOGRAPHY - BILATERAL SCREENING REASON FOR EXAM: Female, 61 years old. Routine annual screening examination. PERTINENT HISTORY: Non-contributory. TECHNIQUE: Digital bilateral breast heri (3D mammographic acquisition) in the CC and MLO projections. 2-D mediolateral oblique (MLO) and craniocaudad (CC) views of both breasts were obtained. CAD: Full Field Digital Mammography with Computer Added Detection was performed. COMPARISON: Comparison is made with prior study dated 02/06/2020. FINDINGS: Breast Composition: The breasts are heterogeneously dense, which may obscure small masses. There are no dominant masses or suspicious calcifications. Stable asymmetry of breast tissue with more breast tissue is seen in the upper outer quadrant of the right breast as compared to the left side. No other significant abnormalities are identified. BI/SCRN MAMM (CAD)W/HERI BILAT IMPRESSION: Stable bilateral screening mammogram. Correlation with ultrasound of the right breast in the upper lateral aspect is recommended. ASSESSMENT CATEGORY: BIRADS Category 0: Incomplete. Need additional imaging evaluation. A letter regarding these results will be sent to the patient by the facility within 30 days. Approximately 10% of breast cancers are not detected by mammography. A normal mammogram should not delay biopsy of a clinically suspicious abnormality. [id number] Electronically Signed: Abdulaziz Brizuela MD at 14:13 EST ,
== END 2021-05-20 23:59 | disposition home or self-care (01) ==
PROVIDERS: PCP Family Medicine; Referring Provider Family Medicine; Visit Provider Family Medicine
DX: Z12.31 Encounter for screening mammogram for malignant neoplasm of breast (principal)
CPT/HCPCS: 77063; 77067

== ENCOUNTER 2021-05-26 12:17 | Outpatient (CLI) | payer BC, SELFPAY ==
--- NOTE | 2021-05-26 12:24 | US_ITS ---
STUDY: ULTRASOUND BREAST - RIGHT REASON FOR EXAM: Female, 61 years old. Abnormal screening mammogram. TECHNIQUE: Axial and longitudinal images of the RIGHT breast were performed with a high resolution ultrasound transducer. # OF IMAGES: 28 COMPARISON: Screening mammogram 05/20/2021, 02/06/2020 FINDINGS: RIGHT Breast: Heterogeneous background echotexture. Multiple longitudinal and transverse ultrasound images of the upper outer quadrant right breast demonstrates some dense breast parenchyma corresponding to the parenchyma seen on mammography but no discrete solid or cystic mass.: US/Breast Limited Unilateral IMPRESSION: Ultrasound confirms dense breast parenchyma in the upper outer quadrant right breast without discrete mass. ASSESSMENT CATEGORY: BIRADS Category 2: Benign. A letter regarding these results will be sent to the patient by the facility within 30 days. Electronically Signed: Casper Nava MD at 13:14 EDT ,
== END 2021-05-26 23:59 | disposition home or self-care (01) ==
PROVIDERS: PCP Family Medicine; Visit Provider Family Medicine
DX: R92.8 Other abnormal and inconclusive findings on diagnostic imaging of breast (principal)
CPT/HCPCS: 76642

== ENCOUNTER → 2021-07-28 | Outpatient (CLI) | payer BC, SELFPAY ==
[2021-07-28 09:32] LABS: Bacteria 0 SEEN /hpf (None Seen); Mucous, Urine 0 SEEN /hpf (<or=2+); Red Blood Cells-Urine 0 SEEN /hpf (0-5); White Blood Cells 0 SEEN /hpf (0-5)
[2021-07-28 10:20] LABS: Color, Urine Straw (Yellow); Glucose, Dipstick Normal (Normal); Ketone-Dipstick Negative (Negative); Leukocyte Esterase-Dipstick Negative /ul (Negative); Nitrite-Dipstick Negative (Negative); Occult Blood-Urine Negative /ul (Negative); Protein-Dipstick Negative (Negative); Urine Bilirubin Dipstick Negative (Negative); Urine Clarity Clear (Clear); Urine Urobilinogen Normal (Normal)
[2021-07-28 10:26] LABS: Absolute Lymphocyte Count 1.56 X10^3/uL (0.83-4.51); Absolute Neutrophil Count 2.9 X10^3/uL (2.0-7.7); Basophil# 0.06 X10^3/uL; Basophil% 1.1 % (0-1); Eosinophil# 0.11 X10^3/uL; Eosinophils% 2.1 % (0-5); Hematocrit 42.3 % (37-47); Hemoglobin 13.9 g/dL (12.0-15.0); Lymphocyte # 1.56 X10^3/ul (0.83-4.51); Lymphocyte % 29.8 % (19-41); Mean Corp Hgb Conc 32.9 g/dL (32-36); Mean Corpuscular Hgb 30.5 pg (27.0-32.0); Mean Corpuscular Volume 92.8 fL (81-99); Mean Platelet Vol. 11.2 fl (6.2-12.0); Monocyte# 0.58 X10^3/uL; Monocyte% 11.1 % (0-10); NRBC Flagged by Analyzer 0 % (0-5); Neutrophil % 55.5 % (47-70); Platelet Count 190 K/mm3 (150-450); RBC Distribution Width CV 12.5 % (11.6-14.6); RBC Distribution Width SD 42.8 fl (35.1-43.9); Red Blood Count 4.56 M/mm3 (4.2-5.4); White Blood Count 5.2 K/mm3 (4.4-11.0)
[2021-07-28 10:36] LABS: Squamous Epithelial Cells - UA 0-5 SEEN /hpf (5-10)
[2021-07-28 11:14] LABS: ALB/GLOB Ratio 1.1 RATIO (0.9-2.4); AST(SGOT) 16 U/L (15-37); Alanine Aminotransfer ALT/SGPT 18 U/L (13-56); Albumin, Serum 3.7 g/dL (3.2-5.0); Alkaline Phosphatase 60 U/L (45-117); Anion Gap 8 (5-15); BUN 13 mg/dL (7-18); Calcium,Total 8.9 mg/dL (8.5-10.1); Chloride 103 mmol/L (98-107); Creatinine, Serum 0.65 mg/dL (0.55-1.02); EST Glomerular Filtration Rate 98 mL/min (>60); Est Glom Filt Rate - Afr Amer 118 mL/min (>60); Globulin 3.4 g/dL (2.2-4.2); Glucose 93 mg/dL (74-106); Potassium 3.9 mmol/L (3.5-5.1); Protein, Total 7.1 g/dL (6.4-8.2); Sodium Level 137 mmol/L (136-145); T4 Free Direct 1.45 ng/dL (0.76-1.46); Thyroid Stim Hormone (TSH) 0.89 uIU/mL (0.358-3.74)
== END | disposition home or self-care (01) ==
LOC: MFPLAB 09:29
PROVIDERS: PCP Family Medicine; Referring Provider Family Medicine; Visit Provider Family Medicine
DX: F17.210 Nicotine dependence, cigarettes, uncomplicated (principal); E03.8 Other specified hypothyroidism
CPT/HCPCS: 36415; 80053; 81001; 84439; 84443; 85025

== ENCOUNTER → 2021-11-29 | Outpatient (CLI) | payer BC, SELFPAY ==
[2021-11-29 11:50] LABS: Bacteria 0 SEEN /hpf (None Seen); Mucous, Urine 0 SEEN /hpf (<or=2+); Red Blood Cells-Urine 0 SEEN /hpf (0-5); Squamous Epithelial Cells - UA 0 SEEN /hpf (5-10); White Blood Cells 0 SEEN /hpf (0-5)
[2021-11-29 15:11] LABS: Color, Urine Yellow (Yellow); Glucose, Dipstick Normal (Normal); Ketone-Dipstick Negative (Negative); Leukocyte Esterase-Dipstick Negative /ul (Negative); Nitrite-Dipstick Negative (Negative); Occult Blood-Urine Negative /ul (Negative); Protein-Dipstick Negative (Negative); Urine Bilirubin Dipstick Negative (Negative); Urine Clarity Clear (Clear); Urine Urobilinogen Normal (Normal)
[2021-11-29 15:16] LABS: Absolute Lymphocyte Count 1.28 X10^3/uL (0.83-4.51); Basophil# 0.04 X10^3/uL; Basophil% 0.7 % (0-1); Eosinophil# 0.12 X10^3/uL; Hematocrit 42.8 % (37-47); Hemoglobin 13.7 g/dL (12.0-15.0); Lymphocyte # 1.28 X10^3/ul (0.83-4.51); Lymphocyte % 21.6 % (19-41); Mean Corpuscular Hgb 30.2 pg (27.0-32.0); Mean Corpuscular Volume 94.3 fL (81-99); Mean Platelet Vol. 11.8 fl (6.2-12.0); Monocyte# 0.51 X10^3/uL; Monocyte% 8.6 % (0-10); NRBC Flagged by Analyzer 0 % (0-5); Neutrophil # 3.95 X10^3/uL (2.7-7.7); Neutrophil % 66.8 % (47-70); Platelet Count 178 K/mm3 (150-450); RBC Distribution Width CV 12.4 % (11.6-14.6); RBC Distribution Width SD 42.7 fl (35.1-43.9); Red Blood Count 4.54 M/mm3 (4.2-5.4); White Blood Count 5.9 K/mm3 (4.4-11.0)
[2021-11-29 15:42] LABS: AST(SGOT) 19 U/L (15-37); Alanine Aminotransfer ALT/SGPT 22 U/L (13-56); Albumin, Serum 3.6 g/dL (3.2-5.0); Alkaline Phosphatase 71 U/L (45-117); Anion Gap 9 (5-15); BUN 21 mg/dL (7-18); BUN/Creat Ratio 27.2 RATIO (10-20); Calcium,Total 9.1 mg/dL (8.5-10.1); Chloride 104 mmol/L (98-107); Creatinine, Serum 0.77 mg/dL (0.55-1.02); EST Glomerular Filtration Rate 80 mL/min (>60); Est Glom Filt Rate - Afr Amer 97 mL/min (>60); Globulin 3.7 g/dL (2.2-4.2); Glucose 86 mg/dL (74-106); Potassium 3.9 mmol/L (3.5-5.1); Protein, Total 7.3 g/dL (6.4-8.2); Sodium Level 140 mmol/L (136-145); T4 Free Direct 1.41 ng/dL (0.76-1.46)
== END | disposition home or self-care (01) ==
LOC: MFPLAB 11:45
PROVIDERS: PCP Family Medicine; Referring Provider Family Medicine; Visit Provider Family Medicine
DX: E03.8 Other specified hypothyroidism (principal)
CPT/HCPCS: 36415; 80053; 81001; 84439; 84443; 85025

== ENCOUNTER → 2022-05-30 | Outpatient (CLI) | payer BC, SELFPAY ==
[2022-05-30 18:04] LABS: Hematocrit 42.9 % (37-47); Hemoglobin 13.6 g/dL (12.0-15.0); Mean Corp Hgb Conc 31.7 g/dL (32-36); Mean Corpuscular Volume 94.7 fL (81-99); Mean Platelet Vol. 11.2 fl (6.2-12.0); Platelet Count 202 K/mm3 (150-450); RBC Distribution Width CV 12.5 % (11.6-14.6); RBC Distribution Width SD 43.3 fl (35.1-43.9); Red Blood Count 4.53 M/mm3 (4.2-5.4); White Blood Count 6.9 K/mm3 (4.4-11.0)
[2022-05-30 20:49] LABS: Free T3 1.9 pg/mL (2.18-3.98); Thyroid Stim Hormone (TSH) 5.04 uIU/mL (0.358-3.74)
== END | disposition home or self-care (01) ==
LOC: MFPLAB 14:53
PROVIDERS: PCP Family Medicine; Referring Provider Family Medicine; Visit Provider Nurse Practitioner Family
DX: E03.8 Other specified hypothyroidism (principal)
CPT/HCPCS: 36415; 84402; 84403; 84436; 84443; 84481; 85027

== ENCOUNTER → 2022-06-26 | Outpatient (CLI) | payer BC, SELFPAY ==
--- NOTE | 2022-06-26 09:48 | BI_ITS ---
MAMMOGRAPHY - BILATERAL SCREENING REASON FOR EXAM: Female, 62 years old. Routine annual screening examination. PERTINENT HISTORY: Non-contributory. TECHNIQUE: Digital bilateral breast heri (3D mammographic acquisition) in the CC and MLO projections. 2-D mediolateral oblique (MLO) and craniocaudad (CC) views of both breasts were obtained. CAD: Full Field Digital Mammography with Computer Added Detection was performed. COMPARISON: Comparison is made with prior study dated May 20, 2021 and February 06, 2020. FINDINGS: Breast Composition: The breasts are heterogeneously dense, which may obscure small masses. There are no dominant masses or suspicious calcifications. Again, there is stable asymmetric breast tissue where more breast tissue is seen in the upper-outer quadrant of the right breast as compared to the left side. Stable small benign-appearing bilateral axillary lymph nodes. No other significant abnormalities are identified. There has been no significant change since the prior study. BI/SCRN MAMM (CAD)W/HERI BILAT IMPRESSION: Stable bilateral screening mammogram. Yearly follow-up mammogram recommended. (A) ASSESSMENT CATEGORY: BIRADS Category 2: Benign. A letter regarding these results will be sent to the patient by the facility within 30 days. Approximately 10% of breast cancers are not detected by mammography. A normal mammogram should not delay biopsy of a clinically suspicious abnormality. [id number] Electronically Signed: Abdulaziz Brizuela MD at 12:19 EDT ,
== END | disposition home or self-care (01) ==
LOC: OPBI 09:47
PROVIDERS: PCP Family Medicine; Referring Provider Nurse Practitioner Family; Visit Provider Nurse Practitioner Family
DX: Z12.31 Encounter for screening mammogram for malignant neoplasm of breast (principal)
CPT/HCPCS: 77063; 77067

== ENCOUNTER → 2022-06-29 | Outpatient (CLI) | payer BC, SELFPAY ==
[2022-06-29 13:17] LABS: Free T3 1.8 pg/mL (2.18-3.98); Thyroid Stim Hormone (TSH) 6.23 uIU/mL (0.358-3.74)
== END | disposition home or self-care (01) ==
LOC: MFPLAB 10:05
PROVIDERS: PCP Family Medicine; Visit Provider Nurse Practitioner Family
DX: Z00.00 Encounter for general adult medical examination without abnormal findings (principal)
CPT/HCPCS: 36415; 84402; 84403; 84443; 84481

== ENCOUNTER → 2022-07-04 | Outpatient (CLI) | payer BC, SELFPAY ==
[2022-07-10 21:14] LABS: HPV Reflexed? NOT INDICATED
== END | disposition home or self-care (01) ==
LOC: LABSPEC 12:20
PROVIDERS: PCP Family Medicine; Referring Provider Nurse Practitioner Family; Visit Provider Nurse Practitioner Family
DX: Z01.419 Encounter for gynecological examination (general) (routine) without abnormal findings (principal)
CPT/HCPCS: 87491; 87591; 88175; G0145

== ENCOUNTER → 2022-11-22 | Outpatient (CLI) | payer BC, SELFPAY | END | disposition home or self-care (01) | LOC: MFPLAB 08:25 | PROVIDERS: PCP Family Medicine; Visit Provider Nurse Practitioner Family | DX: E03.8 Other specified hypothyroidism (principal) | CPT/HCPCS: 36415; 84443 ==

== ENCOUNTER → 2023-02-20 | Outpatient (CLI) | payer BC, SELFPAY ==
[2023-02-20 12:38] LABS: Free T3 1.6 pg/mL (2.18-3.98); T4 Total, Thyroxin 10.7 ug/dL (4.8-13.9)
== END | disposition home or self-care (01) ==
LOC: MFPLAB 10:24
PROVIDERS: PCP Nurse Practitioner Family; Visit Provider Nurse Practitioner Family
DX: E03.8 Other specified hypothyroidism (principal)
CPT/HCPCS: 36415; 84436; 84443; 84481

== ENCOUNTER → 2023-05-24 | Outpatient (CLI) | payer BC, SELFPAY ==
[2023-05-24 13:34] LABS: Free T3 2.4 pg/mL (2.18-3.98); T4 Total, Thyroxin 13.7 ug/dL (4.8-13.9); Thyroid Stim Hormone (TSH) 0.78 uIU/mL (0.358-3.74)
== END | disposition home or self-care (01) ==
LOC: MFPLAB 09:08
PROVIDERS: PCP Nurse Practitioner Family; Visit Provider Nurse Practitioner Family
DX: E03.8 Other specified hypothyroidism (principal)
CPT/HCPCS: 36415; 84436; 84443; 84481

== ENCOUNTER → 2023-05-29 | Outpatient (CLI) | payer BC, SELFPAY ==
[2023-05-29 11:57] LABS: Absolute Lymphocyte Count 1.63 X10^3/uL (0.83-4.51); Absolute Neutrophil Count 3.8 X10^3/uL (2.0-7.7); Basophil# 0.08 X10^3/uL; Basophil% 1.3 % (0-1); Eosinophil# 0.14 X10^3/uL; Eosinophils% 2.2 % (0-5); Hemoglobin 14.1 g/dL (12.0-15.0); Lymphocyte # 1.63 X10^3/ul (0.83-4.51); Lymphocyte % 25.8 % (19-41); Mean Corpuscular Hgb 29.3 pg (27.0-32.0); Mean Corpuscular Volume 91.3 fL (81-99); Monocyte# 0.63 X10^3/uL; NRBC Flagged by Analyzer 0 % (0-5); Neutrophil # 3.83 X10^3/uL (2.7-7.7); Neutrophil % 60.4 % (47-70); Platelet Count 211 K/mm3 (150-450); RBC Distribution Width CV 12.3 % (11.6-14.6); Red Blood Count 4.82 M/mm3 (4.2-5.4); White Blood Count 6.3 K/mm3 (4.4-11.0)
[2023-05-29 12:42] LABS: Vitamin B12 519 pg/mL (211-911); Vitamin D,25 Hydroxy 66.1 ng/mL
[2023-05-29 12:46] LABS: ALB/GLOB Ratio 0.9 RATIO (0.9-2.4); AST(SGOT) 24 U/L (15-37); Alanine Aminotransfer ALT/SGPT 25 U/L (13-56); Albumin, Serum 3.5 g/dL (3.2-5.0); Alkaline Phosphatase 70 U/L (45-117); Anion Gap 10 (5-15); BUN 16 mg/dL (7-18); BUN/Creat Ratio 23.1 RATIO (10-20); Calcium,Total 9.1 mg/dL (8.5-10.1); Chloride 102 mmol/L (98-107); Creatinine, Serum 0.69 mg/dL (0.55-1.02); EST Glomerular Filtration Rate 90 mL/min (>60); Est Glom Filt Rate - Afr Amer 109 mL/min (>60); Globulin 3.9 g/dL (2.2-4.2); Glucose 88 mg/dL (74-106); Potassium 3.8 mmol/L (3.5-5.1); Protein, Total 7.4 g/dL (6.4-8.2); Sodium Level 138 mmol/L (136-145); T4 Free Direct 1.54 ng/dL (0.76-1.46); Thyroid Stim Hormone (TSH) 0.56 uIU/mL (0.358-3.74)
== END | disposition home or self-care (01) ==
LOC: MFPLAB 10:50
PROVIDERS: PCP Nurse Practitioner Family; Visit Provider Family Medicine
DX: E03.8 Other specified hypothyroidism (principal); R53.83 Other fatigue
CPT/HCPCS: 36415; 80053; 82306; 82607; 84439; 84443; 85025

== ENCOUNTER 2024-11-28 19:31 | Inpatient (IN) | payer BC, SELFPAY ==
[2024-11-28] VITALS (10 sets, daily range): BP systolic 124–172; BP diastolic 52–105; PULSE 69–85; RESP 15–22; TEMP 36.5–37.2; O2SAT 88–100; BMI 37.1; BMI 36.2
[2024-11-28 19:55] LABS: Hematocrit 36.3 % (37-47); Hemoglobin 12.0 g/dL (12.0-15.0); Immature Granulocytes Count 0.020 X10^3/uL (0.0-0.0); Mean Corp Hgb Conc 33.1 g/dL (32-36); Mean Corpuscular Volume 93.3 fL (81-99); Mean Platelet Vol. 10.1 fl (6.2-12.0); NRBC Flagged by Analyzer 0 % (0-5); Platelet Count 196 K/mm3 (150-450); RBC Distribution Width CV 13.0 % (11.6-14.6); RBC Distribution Width SD 44.5 fl (35.1-43.9); Red Blood Count 3.89 M/mm3 (4.2-5.4); White Blood Count 6.3 K/mm3 (4.4-11.0)
--- NOTE | 2024-11-28 19:55 | RAD_ITS ---
PROCEDURE: CHEST 1 VIEW (PORTABLE) 11/28/2024 REASON FOR EXAM: Shortness of breath TECHNIQUE: Frontal view of the chest. COMPARISON: Chest radiograph May 15, 2019 FINDINGS: Hardware: No implanted hardware. Heart: Normal size Lungs: Expanded and clear Bones: No destructive process. Other: Abnormal right hilar configuration suspicious for neoplasm RAD/Chest 1 View (Portable) IMPRESSION: No acute process in the chest. Due to suspicion for right hilar mass, CT chest with IV contrast follow-up is recommended Reading Location: [id number]
--- NOTE | 2024-11-28 20:19 | CT_ITS ---
PROCEDURE: CTA CHEST W/WO CONTRAST 11/28/2024 REASON FOR EXAM: SOB TECHNIQUE: Procedure Code: [id number] Modality: CT Procedure: CTA CHEST W/WO CONTRAST Multiplanar Sagittal and Coronal images were obtained. 3D post processing was performed. CONTRAST: Isovue 370 VOLUME: 92 mL One or more dose reduction techniques were used (e.g., Automated exposure control, adjustment of the mA and/or kV according to patient size, use of iterative reconstruction technique). RADIATION DOSE SUMMARY: DLP: 558.35 mGycm COMPARISON: Chest x-ray earlier same day 11/28/2024. FINDINGS: PULMONARY VESSELS: Acute segmental-subsegmental pulmonary arterial emboli within right middle and lower lobe branches. Normal caliber of the main pulmonary trunk. No findings concerning for right heart strain, although there is reflux of contrast into the IVC and hepatic veins, and extensive reflux of IV contrast into the azygous venous system and anterior right chest wall subcutaneous collaterals. MEDIASTINUM: Large ill-defined heterogeneous right middle mediastinal mass measuring 7.1 x 6 x 5.6 cm. Speckled mineralization at the superior medial aspect is noted. The mass abuts the superior aspect of the main right pulmonary artery with mild luminal compression, potentially with invasion. Additionally, the mass compresses the lower aspect of the superior vena cava, which also appears invaded and significantly narrowed. Multiple additional mildly enlarged upper mediastinal pretracheal lymph nodes, and small bilateral hilar lymph nodes. No enlarged axillary lymph nodes are seen. LUNGS/PLEURA: The aforementioned right mediastinal/suprahilar mass partially extends into the medial aspect of the right upper and middle lobes, abutting the bronchial airways. 5 mm pulmonary nodule in the right upper lobe (S2 image 176). Benign 11 mm calcified granuloma in the anteromedial right middle lobe. No pneumothorax or pleural effusions. Mild right basilar dependent atelectasis. HEART: Normal in size. No pericardial effusion. Mild coronary artery calcifications. THORACIC AORTA: Normal in course and caliber. Mild atherosclerotic disease. UPPER ABDOMEN: No significant abnormality visualized. BONES: No significant abnormality. No osseous lytic or blastic lesion appreciated. CT/CTA Chest W/WO Contrast IMPRESSION: Acute right middle and lower lobe segmental-subsegmental pulmonary arterial emb eliazar. Large ill-defined heterogeneous right middle mediastinal/suprahilar mass lesion , as described above. Localized mass-effect causing compression of the right main pulmonary artery, and significant renita tito and/or invasion of the lower superior vena cava. Additional enlarged superior mediastinal and multiple bilateral small hil ar lymph nodes, presumably metastatic. Further workup recommended. Nonspecific 5 mm pulmonary nodule in the right upper lobe (see grant images). Reading Location: [facility]
[2024-11-28 20:29] LABS: Anion Gap 13 (5-15); BUN 14 mg/dL (4-19); BUN/Creat Ratio 18.8 RATIO (10-20); Calcium,Total 9.1 mg/dL (7.6-11.0); Carbon Dioxide 23.4 mmol/L (21.0-32.0); Chloride 100 mmol/L (98-108); Estimated Creatinine Clearance 75.88 ml/min (50-250); Glucose 101 mg/dL (70-99); Potassium 4.4 mmol/L (3.3-5.1); Troponin T High Sensitivity 19 ng/L (<=14)
[2024-11-28 22:04] LABS: AST(SGOT) 25 U/L (<=31); Alanine Aminotransfer ALT/SGPT 14 U/L (<=34); Albumin, Serum 4.1 g/dL (3.4-4.8); Alkaline Phosphatase 73 U/L (35-104); Bilirubin, Direct 0.20 mg/dL (0.00-0.30); Globulin 3.0 g/dL (2.2-4.2); Pro- Brain NATRIURETIC PEPTIDE 101 pg/mL (<=900)
[2024-11-28 22:15] LABS: Troponin T High Sens 2 HR 22 ng/L (<=14)
--- NOTE | 2024-11-28 22:35 | PCM.HP.STD ---
HPI - General General Date of Admission: 11/28/24 Date of Service: 11/28/24 Chief Complaint: Dyspnea, generalized weakness, edema. HPI Narrative The patient is a 64 y/o F w/ PMHx: Obesity, Hypothyroidism, CKD stage II per GFR trending, Tobacco use who presents to the [facility] ED on 11/28/2024 with history of dyspnea worse with any exertion as well as generalized edema ongoing since at least September with unfortunately no recent weights in the system but given ongoing not improving symptoms prompted eventual ED evaluation. Patient denies any weight loss, fevers, night sweats. Workup in the ED included T98.9, heart rate 85, BP 172/93, respiratory rate 20, 88% on room air with improvement to 94% on 2 L with most recent repeat vitals otherwise heart rate 82, BP 141/105, respiratory rate 20, CBC with WBC 6.3, He[place] 12, MCV 93.3, platelet 196 without marked shift, BMP with BUN/creatinine 14/0.76, GFR 87, glucose 101, troponin 19 with repeat delta troponin 22, TSH 44, chest x-ray with no acute cardiopulmonary findings however there is an abnormal right hilar configuration suspicious for neoplasm with CT chest with IV contrast recommendation, follow-up CT chest with IV contrast with an acute right middle and lower lobe segmental subsegmental pulmonary artery emboli as well as a large ill-defined heterogeneous right middle mediastinal/suprahilar mass lesion with localized mass effect causing compression of the right main pulmonary artery and significant compression and/for invasion of the lower superior vena cava with additionally no large superior mediastinal and multiple bilateral small hilar lymph nodes presumably metastatic, nonspecific 5 mm pulmonary nodule in the right upper lobe. In the ED patient ministered Lasix 40 mg IV x 1 as well as DuoNeb therapy x 1. [facility] Medical History (Updated 11/29/24 @ 02:[address] Brandy Love MD) Obesity CKD (chronic kidney disease), stage II Tobacco use Hypothyroidism Home Medications ?Medication ?Instructions ?Recorded ?Last Taken ?Type levothyroxine 150 mcg tablet 150 mcg PO DAILY 05/15/19 Unknown History Allergy/AdvReac Type Severity Reaction Status Date / Time acetaminophen (From Vicodin) AdvReac Vomiting Verified 11/28/24 19:31 hydrocodone (From Vicodin) AdvReac Vomiting Verified 11/28/24 19:31 Family History Mother Heart disease Diabetes Seizures Father Heart disease CAD (coronary artery disease) Hypertension Myocardial infarction Surgical History H/O rotator cuff surgery H/O spinal fusion Social History household members: spouse Smoking Status: Current every day smoker tobacco type: cigarettes Smoking packs per day: 0.5 Smoking cigarettes per day: 10.0 alcohol intake: current alcohol intake frequency: holidays/special occasions only substance use type: does not use ROS ROS Narrative Admission Review of Systems: CONSTITUTIONAL: No weight loss, fever, chills, +weakness or fatigue. HEENT: Eyes: No visual loss, blurred vision, double vision or yellow sclerae. Ears, Nose, Throat: No hearing loss, sneezing, congestion, runny nose or sore throat. SKIN: No rash or itching, lesions, wounds. CARDIOVASCULAR: + Edema. No chest pain, chest pressure or chest discomfort, palpitations, orthopnea, syncopal events. RESPIRATORY: + Dyspnea worse with exertion, occasional cough but no productive sputum. No wheezing, hemoptysis. GASTROINTESTINAL: No anorexia, nausea, vomiting or diarrhea, abdominal pain, melena, BRBPR. GENITOURINARY: No dysuria, frequency, urgency or retention. NEUROLOGICAL: No headache, dizziness, syncope, paralysis, ataxia, numbness or tingling in the extremities, focal weakness, change in bowel or bladder control, seizure. MUSCULOSKELETAL: + muscle, back pain, joint pain or stiffness. HEMATOLOGIC: No anemia, bleeding or bruising. LYMPHATICS: No enlarged nodes. No history of splenectomy. PSYCHIATRIC: No history of depression or anxiety. ENDOCRINOLOGIC: No reports of sweating, cold or heat intolerance. No polyuria or polydipsia. ALLERGIES: No history of asthma, hives, eczema or rhinitis. Vital Signs Vital Signs Vital Signs: 11/28/24 19:31 11/28/24 19:46 11/28/24 19:47 Temperature 98.9 F Temperature Source Oral Pulse Rate 85 Respiratory Rate 20 H Respiratory Effort Respiratory Depth Respiratory Pattern Blood Pressure 172/93 H Blood Pressure Mean 119 Pulse Ox 88 95 Oxygen Delivery Method Room Air Nasal Cannula Nasal Cannula Oxygen Flow Rate (L/min) 2 2 11/28/24 19:48 11/28/24 19:49 11/28/24 20:31 Temperature Temperature Source Pulse Rate 82 Respiratory Rate 20 H Respiratory Effort Normal Non-Labored Respiratory Depth Respiratory Pattern Normal Blood Pressure 141/105 H Blood Pressure Mean 117 Pulse Ox 96 94 Oxygen Delivery Method Nasal Cannula Nasal Cannula Oxygen Flow Rate (L/min) 2 2 11/28/24 21:00 11/28/24 21:05 11/28/24 21:14 Temperature Temperature Source Pulse Rate 69 72 Respiratory Rate 22 H 20 H Respiratory Effort Normal Non-Labored Respiratory Depth Normal Respiratory Pattern Normal Tachypnea Blood Pressure 160/82 H Blood Pressure Mean 108 Pulse Ox 96 Oxygen Delivery Method Nasal Cannula Nasal Cannula Oxygen Flow Rate (L/min) 2 2 11/28/24 22:00 Temperature Temperature Source Pulse Rate 72 Respiratory Rate 22 H Respiratory Effort Respiratory Depth Respiratory Pattern Blood Pressure 145/52 H Blood Pressure Mean 83 Pulse Ox 94 Oxygen Delivery Method Nasal Cannula Oxygen Flow Rate (L/min) 2 Weight Weight: 209 lb 11.2 oz Body Mass Index (BMI) 37.1 Physical Exam Narrative Physical Examination: General: Awake, alert, oriented x 3 and cooperative, seated upright in the ED bed, no obvious distress. Skin: Normal color, normal turgor, no icterus, no cyanosis except occasional abrasion, ecchymoses. HEENT: AT/NC, EOMI, PERRLA, MMM, no carotid bruits or JVD noted. Lungs: Mildly diminished, greater bases, mildly increased respiratory rate but no distress, no significantly appreciated rales, ronchi or wheezing. Heart: Regular rate and rhythm; no gallop, rub audible. Abdomen: Soft, obese, NTTP, ND, normal BS, no appreciated HSM. Extremities: No cyanosis, no clubbing, mild ankle not markedly pitting edema. Neurological: Patient awake, alert, oriented as noted, cognitive function intact; pupils equally reactive to light and accommodation, cranial nerves grossly normal, moving all 4 extremities, no focal deficits, strength mildly to moderately globally decreased. Psychiatric: Affect appears fatigued otherwise normal, no acute evidence of depressive or anxiety feelings. Results Lab / Micro Data 11/28/24 19:45 11/28/24 19:45 Labs: Laboratory Results - last 24 hr 11/28/24 19:45: WBC 6.3, RBC 3.89 L, Hgb 12.0, Hct 36.3 L, MCV 93.3, MCH 30.8, MCHC 33.1, RDW Std Deviation 44.5 H, RDW Coeff of Andreia 13.0, Plt Count 196, MPV 10.1, Immature Gran % (Auto) 0.300, Neut % (Auto) 63.7, Lymph % (Auto) 23.5, [place] % (Auto) 7.9, Eos % (Auto) 3.2, Baso % (Auto) 1.4 H, Absolute Neuts (auto) 4.0, Absolute Lymphs (auto) 1.48, Nucleated RBC % 0, Sodium 135, Potassium 4.4, Chloride 100, Carbon Dioxide 23.4, Anion Gap 13, BUN 14, Creatinine 0.76, Estim Creat Clear Calc 75.88, Est GFR (MDRD) Non-Af 87, BUN/Creatinine Ratio 18.8, Glucose 101 H, Calcium 9.1, Total Bilirubin 0.44, Direct Bilirubin 0.20, AST 25, ALT 14, Alkaline Phosphatase 73, Troponin T High Sens 19 H, Troponin T Hi Sens 2 Hr 22 H, NT pro BNP II 101, Total Protein 7.1, Albumin 4.1, Globulin 3.0, TSH 44.000 H Imaging Radiology Impression Chest X-Ray 11/28/24 19:55 IMPRESSION: No acute process in the chest. Due to suspicion for right hilar mass, CT chest with IV contrast follow-up is recommended Reading Location: [id number] Chest CTA 11/28/24 20:19 IMPRESSION: Acute right middle and lower lobe segmental-subsegmental pulmonary arterial emboli. Large ill-defined heterogeneous right middle mediastinal/suprahilar mass lesion, as described above. Localized mass-effect causing compression of the right main pulmonary artery, and significant compression and/or invasion of the lower superior vena cava. Additional enlarged superior mediastinal and multiple bilateral small hilar lymph nodes, presumably metastatic. Further workup recommended. Nonspecific 5 mm pulmonary nodule in the right upper lobe (see grant images). Reading Location: [id number] Assessment & Plan Assessment/Plan (1) Pulmonary emboli: PLAN: Plan The patient is a 64 y/o F w/ PMHx: Obesity, Hypothyroidism, CKD stage II per GFR trending, Tobacco use who presents to the [facility] ED on 11/28/2024 with history of dyspnea worse with any exertion as well as generalized edema ongoing since at least September with unfortunately no recent weights in the system but given ongoing not improving symptoms prompted eventual ED evaluation. #1. Acute hypoxia secondary to acute right middle and lower lobe segmental/subsegmental pulmonary arterial emboli with a large ill-defined heterogeneous right middle mediastinal/suprahilar mass lesion with localized mass effect causing compression on the right main pulmonary artery as well as compression/and/or invasion in the lower superior vena cava with notable regional lymphadenopathy with indeterminate cardiac enzyme likely secondary to demand: Will admit to PCU, will continue oxygen supplementation with wean as tolerated to room air, will have as needed albuterol in addition to ATC DuoNeb therapies, will maintain on cardiac telemetry and continue to cycle cardiac enzyme, will obtain ECHO, BNP, will continue therapeutic heparin drip regimen, will request pulmonary consultation in addition to radiology directed biopsy. #2. Elevated BP without hypertensive diagnosis: BP significantly elevated in the ED, potentially related with acute presentation, will continue to monitor and add oral regimen if necessary,. IV hydralazine in the interim. #3. Abnormal TSH: ED physician obtained TSH notably elevated 44, pending free T4 and T3, will adjust evaluation/further workup pending these levels. #4. Chronic Kidney Disease Stage II primarily noted per GFR trending although has vacillated: Admission BUN/Cr 14/0.76, GFR 87, baseline renal function primarily 0.5-0.7, repeat BMP in AM. #5. Hypothyroidism: Will continue patient home levothyroxine regimen. #6. Tobacco Abuse: Encouraged cessation, inpatient consultation per RT, NR if desired. #7. Obesity: Weight loss and lifestyle changes encouraged. #8. DVT prophylaxis: Lovenox. #9. CODE status: Patient healthcare preparatory living going on in place but her who is present would be her medical decision-maker if necessary. Discussed CODE status at length including difference between FULL code, DNR-CCA and DNR-CC status. Following discussions about the differences in these status, requested Full Code status. Charges/Coding Visit Charges Inpatient E&M: 78443 Init Hosp L3
[2024-11-28 22:58] LABS: Free T3 1.6 pg/mL (2.18-3.98)
[2024-11-28] MEDS: HEPARIN/D5w 25,000 UNITS 25,000 UNITS/250 ML IV.SOLN. 11.4 UNITS CONT INF (23:14)
[2024-11-28] MEDS: Heparin Injection (Vial) 5,000 UNIT/ML VIAL 7500 UNIT IV (23:15)
--- NOTE | 2024-11-28 23:19 | EDS_ITS ---
HPI History of Present Illness Chief Complaint: Shortness of Breath Narrative Narrative: Patient is a 64-year-old female presenting to the emergency department for shortness of breath and edema. Patient has a past medical history of cervical spinal fusion and hypothyroidism on Synthroid. Patient states this has been going on since September however would intermittently improve and then she would cancel her primary care doctor visit and it would worsen again. States over the past 3 weeks it has significantly worsened. He is endorsing edema on her arms, legs, breast and abdomen. She reports shortness of breath with activity and while lying flat. She denies any chest pain, fevers, chills, cough, abdominal pain, nausea, vomiting ,diarrhea, dysuria or hematuria. Denies history of DVT or PE. Denies recent hospitalizations, surgeries. Reports travel to [place] in October. [facility] Medical History Obesity CKD (chronic kidney disease), stage II Tobacco use Trigger finger Tendonitis of both wrists Tendonitis of both elbows Hypothyroidism Home Medications ?Medication ?Instructions ?Recorded ?Last Taken ?Type levothyroxine 150 mcg tablet 150 mcg PO DAILY 05/15/19 Unknown History Allergy/AdvReac Type Severity Reaction Status Date / Time acetaminophen (From Vicodin) AdvReac Vomiting Verified 11/28/24 19:31 hydrocodone (From Vicodin) AdvReac Vomiting Verified 11/28/24 19:31 Surgical History H/O rotator cuff surgery H/O spinal fusion Social History Smoking Status: Current every day smoker tobacco type: cigarettes ROS ROS ED ROS Narrative see HPI EXAM Physical Exam Narrative Exam Narrative: Vital signs: Reviewed General: Alert and orientedx3. No acute distress. Chronically ill appearing. HEENT: Head is normocephalic and atraumatic, sinuses nontender, pupils equal round and reactive. Nares are patent. Oropharynx and throat exams normal. Neck: Supple without lymphadenopathy nontender Cardiovascular: Regular rate and rhythm, no murmurs. No rubs or gallops. Normal S1 and S2 Respiratory: Expiratory wheezing in all lung greenberg. No rhonchi or rales. On 2 L NC, does not normally wear O2. Abdominal: Soft and nontender. Normal bowel sounds. No guarding or rebound. Nonsurgical abdomen Extremities: Diffuse 2+ pitting edema in all extremities. No tenderness. No bruising. Normal range of motion. Normal sensation. Skin: No rash or redness. Neurological: Cranial nerves II through XII are grossly intact. Normal strength and sensation. Normal cerebellar function The rest of the physical exam is unremarkable Const Vital Signs: 11/28/24 19:31 11/28/24 19:46 11/28/24 19:47 Temperature 98.9 F Temperature Source Oral Pulse Rate 85 Respiratory Rate 20 H Respiratory Effort Respiratory Depth Respiratory Pattern Blood Pressure 172/93 H Blood Pressure Mean 119 Pulse Ox 88 95 Oxygen Delivery Method Room Air Nasal Cannula Nasal Cannula Oxygen Flow Rate (L/min) 2 2 11/28/24 19:48 11/28/24 19:49 11/28/24 20:31 Temperature Temperature Source Pulse Rate 82 Respiratory Rate 20 H Respiratory Effort Normal Non-Labored Respiratory Depth Respiratory Pattern Normal Blood Pressure 141/105 H Blood Pressure Mean 117 Pulse Ox 96 94 Oxygen Delivery Method Nasal Cannula Nasal Cannula Oxygen Flow Rate (L/min) 2 2 11/28/24 21:00 11/28/24 21:05 11/28/24 21:14 Temperature Temperature Source Pulse Rate 69 72 Respiratory Rate 22 H 20 H Respiratory Effort Normal Non-Labored Respiratory Depth Normal Respiratory Pattern Normal Tachypnea Blood Pressure 160/82 H Blood Pressure Mean 108 Pulse Ox 96 Oxygen Delivery Method Nasal Cannula Nasal Cannula Oxygen Flow Rate (L/min) 2 2 11/28/24 22:00 Temperature Temperature Source Pulse Rate 72 Respiratory Rate 22 H Respiratory Effort Respiratory Depth Respiratory Pattern Blood Pressure 145/52 H Blood Pressure Mean 83 Pulse Ox 94 Oxygen Delivery Method Nasal Cannula Oxygen Flow Rate (L/min) 2 MDM MDM MDM Narrative Medical decision making narrative: Patient is a 64-year-old female presenting to the emergency department for shortness of breath and edema. Patient was seen and examined. Vitals are stable. Patient resting bed comfortably no acute distress. She is on 2 L nasal cannula, normally not on any oxygen. Differential includes but is not limited to: Acute CHF, PE, thyroid disturbance, pneumonia EKG shows normal sinus rhythm with no ischemic changes. No dysrhythmia. CBC with no leukocytosis and a normal hemoglobin. CMP with no significant abnormalities. Normal kidney function. Normal liver functioning. 40 mg IV lasix given for the edema. Initial troponin of 19, reflex of 22, third pending. BNP within normal limits. TSH elevated at 44, free T4 and T3 ordered. 1 view chest x-ray was ordered based on protocol while the patient was in triage, this was reviewed by myself. Shows a possible right sided mass. Based on the chest x-ray findings as well as the patient's new oxygen requirement and recent travel, CT of the chest was ordered to evaluate for PE as well as further evaluate the mass. CT shows an acute right middle and lower lobe segmental- subsegmental pulmonary arterial emboli. Large ill-defined heterogeneous right middle mediastinal/suprahilar mass lesion, as described above. Localized mass- effect causing compression of the right main pulmonary artery, and significant compression and/or invasion of the lower superior vena cava. Additional enlarged superior mediastinal and multiple bilateral small hilar lymph nodes, presumably metastatic. Further workup recommended. Nonspecific 5 mm pulmonary nodule in the right upper lobe. Heparin bolus and drip started. Discussed imaging with the patient and at bedside. Explained that there is a large mass that is compressing structures which may be leading to her swelling. Explained that it is likely neoplasm but further workup is needed to determine. Patient agreeable with admission for further workup, admitted to Dr. Love. Clinical impression: PE Lung mass Anasarca History & Record Review Discussion w/independent historian: Patient and Family Lab Data Attestation: I reviewed the patient's lab results. Labs: Laboratory Results - last 24 hr 11/28/24 19:45 WBC 6.3 RBC 3.89 L Hgb 12.0 Hct 36.3 L MCV 93.3 MCH 30.8 MCHC 33.1 RDW Std Deviation 44.5 H RDW Coeff of Andreia 13.0 Plt Count 196 MPV 10.1 Immature Gran % (Auto) 0.300 Neut % (Auto) 63.7 Lymph % (Auto) 23.5 [place] % (Auto) 7.9 Eos % (Auto) 3.2 Baso % (Auto) 1.4 H Absolute Neuts (auto) 4.0 Absolute Lymphs (auto) 1.48 Nucleated RBC % 0 Sodium 135 Potassium 4.4 Chloride 100 Carbon Dioxide 23.4 Anion Gap 13 BUN 14 Creatinine 0.76 Estim Creat Clear Calc 75.88 Est GFR (MDRD) Non-Af 87 BUN/Creatinine Ratio 18.8 Glucose 101 H Calcium 9.1 Total Bilirubin 0.44 Direct Bilirubin 0.20 AST 25 ALT 14 Alkaline Phosphatase 73 Troponin T High Sens 19 H Troponin T Hi Sens 2 Hr 22 H NT pro BNP II 101 Total Protein 7.1 Albumin 4.1 Globulin 3.0 TSH 44.000 H Free T4 0.70 L Free T3 pg/dL 1.6 L Radiography Chest X-Ray - ED: 1 View, Read by ED Physician, No Infiltrates and - (right sided hilar mass) Diagnostic Testing: Clinical Impression(s) from Imaging Studies Chest X-Ray 11/28/24 19:55 IMPRESSION: No acute process in the chest. Due to suspicion for right hilar mass, CT chest with IV contrast follow-up is recommended Reading Location: [id number] Chest CTA 11/28/24 20:19 IMPRESSION: Acute right middle and lower lobe segmental-subsegmental pulmonary arterial emboli. Large ill-defined heterogeneous right middle mediastinal/suprahilar mass lesion, as described above. Localized mass-effect causing compression of the right main pulmonary artery, and significant compression and/or invasion of the lower superior vena cava. Additional enlarged superior mediastinal and multiple bilateral small hilar lymph nodes, presumably metastatic. Further workup recommended. Nonspecific 5 mm pulmonary nodule in the right upper lobe (see grant images). Reading Location: [facility] Discharge Plan Triage Chief Complaint: Shortness of Breath Other Complaint: Edema ED Provider: Almita Prince Dx/Rx/DC Orders Primary Care Provider: Gerry Brian
[2024-11-29] VITALS (8 sets, daily range): BP systolic 127–165; BP diastolic 69–106; PULSE 71–81; RESP 16–18; TEMP 36.4–36.8; O2SAT 91–94; BMI 36.1
[2024-11-29 00:27] LABS: Magnesium 2.0 mg/dL (1.5-2.2); Pro- Brain NATRIURETIC PEPTIDE 100 pg/mL (<=900)
--- NOTE | 2024-11-29 00:52 | ECHOD_ITS ---
Reason For Study Reason For Study: ARRHYTHMIA Procedure This was a 2D Doppler, Color Flow transthoracic echocardiogram. The study was technically difficult. Exam performed portable in patient room. Left Ventricle Normal LV size. The left ventricular ejection fraction is 70 %. Stage 1 diastolic dysfunction. No regional wall motion abnormalities noted. Right Ventricle Normal RV size. Normal systolic function. Atria Normal left atrium. Normal right atrium. Mitral Valve Normal mitral valve. Tricuspid Valve Normal tricuspid valve. Mild tricuspid valve insufficiency. Pulmonary artery systolic pressure is 24 mmHg. Aortic Valve Normal aortic valve. Pulmonic Valve Normal pulmonic valve. Great Vessels Normal aortic root. The pulmonary artery is normal size. Inferior vena cava collapse with respiration. Pericardium/Pleural No pericardial effusion. MMode/2D Measurements & Calculations LVIDd: 4.0 cm IVSd: 1.0 cm LVOT diam: 2.1 cm LVIDs: 2.5 cm LVPWd: 0.93 cm LVOT area: 3.5 cm2 RVDd: 2.5 cm FS: 38.1 % asc Aorta Diam: 3.5 cm LAV(MOD-bp): 32.0 ml LVAd ap4: 22.1 cm2 LAV(MOD-bp) Indexed: 16.4 ml/m2 LVLd ap4: 7.7 cm LAV(MOD-sp2): 33.2 ml EDV(MOD-sp4): 52.1 ml LAV(MOD-sp4): 30.7 ml EDV(sp4-el): 53.9 ml LVAs ap4: 11.2 cm2 LVLs ap4: 6.8 cm ESV(MOD-sp4): 15.8 ml ESV(sp4-el): 15.7 ml EF(MOD-sp4): 69.6 % EF(sp4-el): 70.9 % LVAd ap2: 21.2 cm2 SV(MOD-sp4): 36.3 ml SV(MOD-sp2): 33.0 ml LVLd ap2: 7.4 cm SI(MOD-sp4): 18.6 ml/m2 SI(MOD-sp2): 16.9 ml/m2 EDV(MOD-sp2): 48.4 ml EDV(sp2-el): 51.2 ml LVAs ap2: 10.8 cm2 LVLs ap2: 6.4 cm ESV(MOD-sp2): 15.4 ml ESV(sp2-el): 15.3 ml EF(MOD-sp2): 68.1 % SV(sp4-el): 38.2 ml Ao sinus diam: 3.4 cm LA A4 area: 13.6 cm2 RA A4 area: 10.1 cm2 TAPSE: 1.9 cm Time Measurements MV dec time: 0.41 sec Doppler Measurements & Calculations MV E max vinod: 69.1 cm/sec Med Peak E' Vinod: 7.6 cm/sec MV A max vinod: 95.6 cm/sec E/E' med: 9.1 MV dec slope: 168.8 cm/sec2 MV E/A: 0.72 Ao V2 max: 143.9 cm/sec LV V1 max: 87.6 cm/sec SV(LVOT): 59.5 ml Ao max P.3 mmHg LV V1 max P.1 mmHg Ao V2 mean: 121.6 cm/sec LV V1 mean P.5 mmHg Ao mean P.2 mmHg LV V1 mean: 56.6 cm/sec Ao V2 VTI: 29.9 cm LV V1 VTI: 17.1 cm AV (velocity ratio): 0.57 RAMAN(I,D): 2.0 cm2 RAMAN(V,D): 2.1 cm2 PA V2 max: 82.2 cm/sec TR max vinod: 231.8 cm/sec TR max P.5 mmHg ECHO/Echo Complete Interpretation Summary Normal LV size. The left ventricular ejection fraction is 70 %. Stage 1 diastolic dysfunction. Pulmonary artery systolic pressure is 24 mmHg. Ordering Physician: Brandy Love Referring Physician: Gerry Brian Performed By: Riana Bernard RDCS
[2024-11-29 01:07] LABS: Prothrombin Time (Protime)PT. 14.2 SECONDS (11.7-14.9)
[2024-11-29 01:19] LABS: Troponin T High Sens 4 HR 28 ng/L (<=14)
[2024-11-29 01:33] LABS: Partial Thromboplast Time > 200.0 Seconds (24.1-36.2)
[2024-11-29 06:36] LABS: Hematocrit 37.3 % (37-47); Hemoglobin 12.1 g/dL (12.0-15.0); Immature Granulocytes Count 0.020 X10^3/uL (0.0-0.0); Mean Corp Hgb Conc 32.4 g/dL (32-36); Mean Corpuscular Volume 93.3 fL (81-99); Mean Platelet Vol. 10.6 fl (6.2-12.0); NRBC Flagged by Analyzer 0 % (0-5); Platelet Count 212 K/mm3 (150-450); RBC Distribution Width CV 13.0 % (11.6-14.6); RBC Distribution Width SD 44.7 fl (35.1-43.9); Red Blood Count 4.00 M/mm3 (4.2-5.4); White Blood Count 6.0 K/mm3 (4.4-11.0)
[2024-11-29 06:37] LABS: Hematocrit 37.1 % (37-47); Hemoglobin 12.2 g/dL (12.0-15.0); Immature Granulocytes Count 0.020 X10^3/uL (0.0-0.0); Mean Corp Hgb Conc 32.9 g/dL (32-36); Mean Corpuscular Volume 93.2 fL (81-99); Mean Platelet Vol. 10.6 fl (6.2-12.0); NRBC Flagged by Analyzer 0 % (0-5); Platelet Count 208 K/mm3 (150-450); RBC Distribution Width CV 13.0 % (11.6-14.6); RBC Distribution Width SD 44.6 fl (35.1-43.9); Red Blood Count 3.98 M/mm3 (4.2-5.4); White Blood Count 5.7 K/mm3 (4.4-11.0)
[2024-11-29 07:26] LABS: AST(SGOT) 25 U/L (<=31); Alanine Aminotransfer ALT/SGPT 11 U/L (<=34); Albumin, Serum 4.5 g/dL (3.4-4.8); Alkaline Phosphatase 75 U/L (35-104); Anion Gap 15 (5-15); BUN 12 mg/dL (4-19); BUN/Creat Ratio 17.1 RATIO (10-20); Calcium,Total 9.4 mg/dL (7.6-11.0); Carbon Dioxide 24.0 mmol/L (21.0-32.0); Chloride 97 mmol/L (98-108); Estimated Creatinine Clearance 74.78 ml/min (50-250); Globulin 2.8 g/dL (2.2-4.2); Glucose 110 mg/dL (70-99); Potassium 3.7 mmol/L (3.3-5.1)
[2024-11-29 07:44] LABS: Prothrombin Time (Protime)PT. 14.9 SECONDS (11.7-14.9)
[2024-11-29 07:46] LABS: Partial Thromboplast Time 89.6 Seconds (24.1-36.2)
[2024-11-29 10:04] LABS: Partial Thromboplast Time 75.8 Seconds (24.1-36.2)
--- NOTE | 2024-11-29 10:07 | CT_ITS ---
PROCEDURE: ABDOMEN/PELVIS W IV CONT ONLY 11/29/2024 REASON FOR EXAM: STAGING FOR SUSPECTED LUNG CANCER. Suprahilar mass seen on prior chest CT 11/28. Pulmonary embolism. TECHNIQUE: Procedure Code: [id number] Modality: CT Procedure: ABDOMEN/PELVIS W IV CONT ONLY Coronal and Sagittal reconstruction series were provided. CONTRAST: Isovue 370 VOLUME: 75 mL One or more dose reduction techniques were used (e.g., Automated exposure control, adjustment of the mA and/or kV according to patient size, use of iterative reconstruction technique. RADIATION DOSE SUMMARY: CTDlvol: 13.30, 21.30 mGy DLP: 1145.52 mGycm FINDINGS: LUNG BASES: Intraluminal filling defect again seen in the right lower lobe subsegmental pulmonary artery. Minimal inferior right lower lobe atelectasis. Right middle lobe calcified granuloma. Multivessel coronary artery calcification. LIVER: Subcapsular 0.7 cm lesion in the lateral left lobe, likely a cyst. GALLBLADDER: Unremarkable. No calcified stone. BILE DUCTS: No ductal dilation. PANCREAS: Unremarkable. SPLEEN: Unremarkable. ADRENAL GLANDS: Unremarkable. KIDNEYS: Unremarkable. The kidneys enhance symmetrically. No hydronephrosis or hydroureter. STOMACH AND BOWEL: No obstruction or perforation. No wall thickening. No CT evidence of colitis or acute diverticulitis. APPENDIX: Normal-appearing appendix. No CT evidence for appendicitis. RETRO/PERITONEUM: No free fluid. No free air. LYMPH NODES: No lymphadenopathy. PELVIC ORGANS: Unremarkable urinary bladder, uterus and ovaries. Small amount of hyperdense material is present in the vaginal canal, similar in attenuation to the contrast within the urinary bladder. VASCULATURE: No aortic aneurysm. Scattered calcified atherosclerosis. ABDOMINAL WALL AND SOFT TISSUES: Small fat-containing indirect inguinal hernias bilaterally. Small amount of contrast is seen within the region of the urethra and extending between the labial folds. BONES: No fracture or suspicious osseous abnormality. Bilateral L5 spondylolyses defects with grade I anterolisthesis of L5 on S1. Severe L5-S1 degenerative disc disease with bilateral neural foraminal stenosis. CT/Abdomen/Pelvis W IV Cont ONLY IMPRESSION: 1. Pulmonary embolus again seen in the right lower lobe. 2. Small amount of contrast within the vaginal canal, most consistent with ref lux of excreted urinary bladder contrast through the urethra rather than a fistula. No definitive evidence of vesicovaginal fis mckenzie is identified. 3. No evidence of metastatic disease in the abdomen or pelvis. Reading Location: [id number]
--- NOTE | 2024-11-29 11:45 | CASEMGMT ---
RN CM Face to Face with patient for initial transition planning/care coordination assessment. RN CM introduced self and role at [facility]. Patient lying in bed, alert and oriented. Patient willing to participate in assessment and is able to answer all questions appropriately. Care providers, pharmacy, and demographics verified. Strata: 1 PCP: [facility] Specialists: none Preferred Pharmacy: [facility] Insurance: [employer] Prescription Benefit: yes Living Will/HPOA: none LNOK: , son Living Arrangements: Patient lives with son in a 2 story home with bed and bath on first floor. Patient is independent at home. Transportation: self, DME/HHC: Patient has cane and raised toilet at home. No previous HHC or SNF. Will monitor for home oxygen, prefers [employer], green sheet on chart. Patient wishes to discharge home, denies need for home health at this time. Patient states she has no further needs or concerns at this time. CM to follow for discharge planning needs that may arise. Disposition Plan: Patient to discharge home with family support and follow-up plans in place. Will monitor for home oxygen. Cori NOLASCO, RN, CM
--- NOTE | 2024-11-29 12:15 | PN_ITS ---
Subjective Subjective Patient seen and examined with her nurse by her bedside. Her was by bedside. She was admitted with a complaint of shortness of breath and generalised edema as well as weight gain. She was found to have a large perihilar right sided lung mass on CT compressing on the right pulmonary artery and also has small right-sided PE. She is on heparin drip. She still complain of the generalized swelling today. She denies any shortness of breath. She has been smoking at least a pack of cigarettes a day since her 20s. She denies any weight loss her mother says she is getting out of about 10 pounds. Review of systems otherwise negative. Objective Data Objective Data Vital Signs: Vital Signs Temp Pulse Resp BP Pulse Ox O2 Del Method O2 Flow Rate 98.1 F 81 18 139/86 H 92 Room Air 2 11/29/24 10:34 11/29/24 10:34 11/29/24 10:34 11/29/24 10:34 11/29/24 10:34 11/29/24 10:11/28/24 23:00 Oxygen Flow Rate (L/min) 2 Oxygen Delivery Method Room Air Weight: 204 lb 2.369 oz Body Mass Index (BMI) 36.1 Intake & Output: Intake and Output for Last 24 Hours 11/27/24 11/28/24 11/29/24 23:59 23:59 23:59 Intake Total 87.93 / 87.93 Balance 87.93 / 87.93 Lab / Micro Data 11/29/24 05:50 11/29/24 05:50 Labs: Laboratory Results - last 24 hr 11/28/24 19:45: WBC 6.3, RBC 3.89 L, Hgb 12.0, Hct 36.3 L, MCV 93.3, MCH 30.8, MCHC 33.1, RDW Std Deviation 44.5 H, RDW Coeff of Andreia 13.0, Plt Count 196, MPV 10.1, Immature Gran % (Auto) 0.300, Neut % (Auto) 63.7, Lymph % (Auto) 23.5, Bossier % (Auto) 7.9, Eos % (Auto) 3.2, Baso % (Auto) 1.4 H, Absolute Neuts (auto) 4.0, Absolute Lymphs (auto) 1.48, Nucleated RBC % 0, Sodium 135, Potassium 4.4, Chloride 100, Carbon Dioxide 23.4, Anion Gap 13, BUN 14, Creatinine 0.76, Estim Creat Clear Calc 75.88, Est GFR (MDRD) Non-Af 87, BUN/Creatinine Ratio 18.8, G lucose 101 H, Calcium 9.1, Phosphorus 3.8, Magnesium 2.0, Total Bilirubin 0.44, Direct Bilirubin 0.20, AST 25, ALT 14, Alkaline Phosphatase 73, Troponin T High Sens 19 H, Troponin T Hi Sens 2 Hr 22 H, NT pro BNP II 101 11/28/24 19:45: NT pro BNP II 100, Total Protein 7.1, Albumin 4.1, Globulin 3.0, TSH 44.000 H, Free T4 0.70 L, Free T3 pg/dL 1.6 L 11/29/24 00:44: PT 14.2, INR 1.1, APTT > 200.0 H*, Troponin T Hi Sens 4Hr 28 H 11/29/24 05:50: WBC 5.7 11/29/24 05:50: WBC 6.0, RBC 3.98 L 11/29/24 05:50: RBC 4.00 L, Hgb 12.2 11/29/24 05:50: Hgb 12.1, Hct 37.1 11/29/24 05:50: Hct 37.3, MCV 93.2 11/29/24 05:50: MCV 93.3, MCH 30.7 11/29/24 05:50: MCH 30.3, MCHC 32.9 11/29/24 05:50: MCHC 32.4, RDW Std Deviation 44.6 H 11/29/24 05:50: RDW Std Deviation 44.7 H, RDW Coeff of Andreia 13.0 11/29/24 05:50: RDW Coeff of Andreia 13.0, Plt Count 208 11/29/24 05:50: Plt Count 212, MPV 10.6 11/29/24 05:50: MPV 10.6, Immature Gran % (Auto) 0.400 11/29/24 05:50: Immature Gran % (Auto) 0.300, Neut % (Auto) 64.9 11/29/24 05:50: Neut % (Auto) 65.6, Lymph % (Auto) 23.3 11/29/24 05:50: Lymph % (Auto) 22.5, Bossier % (Auto) 8.8 11/29/24 05:50: Bossier % (Auto) 9.2, Eos % (Auto) 1.4 11/29/24 05:50: Eos % (Auto) 1.2, Baso % (Auto) 1.2 H 11/29/24 05:50: Baso % (Auto) 1.2 H, Absolute Neuts (auto) 3.7 11/29/24 05:50: Absolute Neuts (auto) 3.9, Absolute Lymphs (auto) 1.33 11/29/24 05:50: Absolute Lymphs (auto) 1.34, Nucleated RBC % 0 11/29/24 05:50: Nucleated RBC % 0, Sodium 136, Potassium 3.7, Chloride 97 L, Carbon Dioxide 24.0, Anion Gap 15, BUN 12, Creatinine 0.67 L, Estim Creat Clear Calc 74.78, Est GFR (MDRD) Non-Af 96, BUN/Creatinine Ratio 17.1, Glucose 110 H, Calcium 9.4, Total Bilirubin 0.58, AST 25, ALT 11, Alkaline Phosphatase 75, Total Protein 7.3, Albumin 4.5, Globulin 2.8, Albumin/Globulin Ratio 1.6 11/29/24 09:15: APTT 75.8 H 11/29/24 : PT 14.9, INR 1.1, APTT 89.6 H Radiography Diagnostic Testing: Radiology Impression Chest X-Ray 11/28/24 19:55 IMPRESSION: No acute process in the chest. Due to suspicion for right hilar mass, CT chest with IV contrast follow-up is recommended Reading Location: [id number] Chest CTA 11/28/24 20:19 IMPRESSION: Acute right middle and lower lobe segmental-subsegmental pulmonary arterial emboli. Large ill-defined heterogeneous right middle mediastinal/suprahilar mass lesion, as described above. Localized mass-effect causing compression of the right main pulmonary artery, and significant compression and/or invasion of the lower superior vena cava. Additional enlarged superior mediastinal and multiple bilateral small hilar lymph nodes, presumably metastatic. Further workup recommended. Nonspecific 5 mm pulmonary nodule in the right upper lobe (see grant images). Reading Location: [facility] Physical Exam Const alert, oriented x3 and no apparent distress General Appearance: cooperative HEENT normocephalic, head/scalp atraumatic, moist oral mucous membranes and oropharynx normal Eyes EOMs intact bilaterally Neck supple and no JVD Lymph Lymphatic: no lymphedema noted Resp Resp Narrative: Mildly diminished breath sounds bibasilarly. No wheezes or crackles. On room air Cardio regular rate, regular rhythm, S1 normal heart sound, S2 normal heart sound and no murmurs GI normal to inspection, nondistended, normoactive bowel sounds, soft to palpation, non-tender and non-distended Extremity normal capillary refill Extremity Narrative: 1+ bipedal pitting edema General Extremity: no tenderness to palpation of joints or extremities Skin General Skin Exam: no breakdown Neuro CN's II-XII intact bilaterally, no focal motor deficits and no sensory deficits noted Motor Exam: general weakness Psych thought process normal and cooperative Appearance: appropriate Assessment & Plan Assessment/Plan (1) Pulmonary emboli: PLAN: Plan #Acute hypoxia due to right mediastinal and suprahilar lung mass as well as acute right lower lobe subsegmental PE * Patient admitted with a complaint of shortness of breath. Imaging done showed a large ill-defined heterogeneous right middle mediastinal and suprahilar mass lesion with localized effect causing compression of the right main pulmonary artery as well as compression and/or invasion in the lower superior vena cava with notable regional lymphadenopathy * Imaging also showed evidence of right middle and lower lobe PE in the subsegmental regions. * Currently on heparin drip. She has a chronic smoking history smoking about at least 1 pack a day since her 20s so this therefore is very likely cancer. * Pulmonology consulted. Due to the mass's location it is likely that bronchoscopy with biopsy will be the best avenue to get to the mass. However will defer to pulmonology evaluation to see if they think CT-guided biopsy by radiology will suffice in light of the location. * Currently on heparin drip. 2D echo pending. Pulmonology consulted. * CT abdomen and pelvis done with contrast showed no evidence of any mets. * 2D echo showed EF of 70% and stage I diastolic dysfunction and no regional wall motion abnormality. #Hypothyroidism: * TSH is elevated at 44. Free T4 and T3. This likely the cause of her generalized swelling. * already on synthroid though i question her compliance. * will repeat the thyroid function tests. Will increase synthroid dose and urge compliance * #Nicotine dependence: Counseled strongly to quit in light of the common findings in her lungs. Nicotine patch as needed #Class II obesity: BMI is 36.2. Complicates acute care, expected current prognosis. DVT prophylaxis: On heparin drip CODE STATUS: Full code Charges/Coding Visit Charges Inpatient E&M: 75484 Subs Hosp L2
--- NOTE | 2024-11-29 12:34 | CON.PCM.CC_ITS ---
HPI Consult Data Date of Consult: 11/29/24 HPI Narrative HPI Narrative: MASON BENJAMIN, is a 64 F who presents [facility] Medical History (Updated 11/29/24 @ 02:[address] Brandy Love MD) Obesity CKD (chronic kidney disease), stage II Tobacco use Hypothyroidism Home Medications ?Medication ?Instructions ?Recorded ?Last Taken ?Type levothyroxine 150 mcg tablet 150 mcg PO DAILY 05/15/19 Unknown History Allergy/AdvReac Type Severity Reaction Status Date / Time acetaminophen (From Vicodin) AdvReac Vomiting Verified 11/28/24 19:31 hydrocodone (From Vicodin) AdvReac Vomiting Verified 11/28/24 19:31 Family History Mother Heart disease Diabetes Seizures Father Heart disease CAD (coronary artery disease) Hypertension Myocardial infarction Surgical History H/O rotator cuff surgery H/O spinal fusion Social History household members: spouse Smoking Status: Current every day smoker tobacco type: cigarettes Smoking packs per day: 0.5 Smoking cigarettes per day: 10.0 alcohol intake: current alcohol intake frequency: holidays/special occasions only substance use type: does not use Objective Data Objective Data Vital Signs: Vital Signs Last response 3 Temperature 36.7 C 11/29/24 10:34 Temperature Source Oral 11/29/24 10:34 Pulse Rate 81 11/29/24 10:34 Pulse Strength Normal (2+) 11/29/24 10:00 Respiratory Rate 18 11/29/24 10:34 Respiratory Effort Normal, Short of Breath 11/29/24 02:42 Respiratory Depth Normal 11/29/24 02:42 Respiratory Pattern Normal 11/29/24 02:42 Blood Pressure 139/86 H 11/29/24 10:34 Blood Pressure Mean 103 11/29/24 10:34 Blood Pressure Source Monitor 11/29/24 10:34 Blood Pressure Position Semi-Fowlers 11/29/24 10:34 Blood Pressure Location Left Forearm 11/29/24 10:34 Pulse Ox 92 11/29/24 10:34 Oxygen Delivery Method Room Air 11/29/24 10:34 Oxygen Flow Rate (L/min) 2 11/28/24 23:00 I&O: I&O Last 24 Hours 3 11/28/24 11/29/24 11/29/24 23:59 11:59 23:59 Intake Total 87.93 / 87.93 Balance 87.93 / 87.93 I&O: Total Stay 3 11/28/24 19:31 thru 11/29/24 11:55 Intake Total 87.93 Balance 87.93 Current Meds Ordered / Administered: Current meds ordered / Administered 3 Generic Name Dose Route Start Last Admin Trade Name Freq PRN Reason Stop Dose Admin Acetaminophen 650 mg 11/29/24 00:52 Acetaminophen 325 Mg Tablet PO Q4H PRN PRN Fever, pain 1-12/19 Al Hydroxide/Mg Hydroxide 30 ml 11/29/24 00:52 Mag Hydrox/Al Hydrox/Simeth 30 Ml Udc PO Q6H PRN PRN Gastric Burning Albuterol Sulfate 2.5 mg 11/29/24 00:52 Albuterol 2.5 Mg/3 Ml Vial.Neb. INHALATION Q2H PRN PRN Dyspnea, wheezing Albuterol/Ipratropium 3 ml 11/29/24 00:52 Ipratropium/Albuterol Sulfate 3 Ml Ampul.Neb INHALATION Q6HWA.RT MAUREEN Guaifenesin 10 ml 11/29/24 00:52 Guaifenesin 10 Ml Udc (200mg/10ml) PO Q4H PRN PRN COUGH/CONGESTION Heparin Sodium (Porcine) 0 unit 11/28/24 22:40 Heparin Nomogram Adjustment 5,000 Unit/Ml Vial IV UD PRN Dose Adjustment Protocol Hydralazine HCl 10 mg 11/29/24 00:52 Hydralazine 20 Mg/Ml Vial IV Q4H PRN PRN SBP > 160 Protocol Heparin Sodium/Dextrose 25,000 units in 250 mls @ 11.414 mls/hr 11/28/24 22:40 11/29/24 10:58 CONT INF 7.78 unit/kg/hr .[id number] MAUREEN 7.4 mls/hr Protocol Titration 12 UNIT/KG/HR Sodium Chloride 250 mls @ 15 mls/hr 11/29/24 00:25 IV .[id number] PRN Saline Flush Sodium Chloride 250 mls @ 15 mls/hr 11/29/24 00:25 IV .[id number] PRN Additional IVPB Infusion Levothyroxine Sodium 150 mcg 11/29/24 06:00 11/29/24 05:46 Levothyroxine 150 Mcg Tablet PO 150 mcg DAILY@0600 MAUREEN Administration Melatonin 3 mg 11/29/24 00:52 Melatonin 3 Mg Tablet PO QHS PRN PRN INSOMNIA Ondansetron HCl 4 mg 11/29/24 00:52 Ondansetron 4 Mg/2 Ml Vial IV Q8H PRN PRN NAUSEA/VOMITING Senna/Docusate Sodium 2 tablet 11/29/24 00:52 Senna/Docusate Sodium 1 Tablet PO BID PRN PRN Constipation Sodium Chloride 10 - 40 ml 11/29/24 00:25 0.9% Saline Lock 10 Ml Syringe IV UD PRN SALINE FLUSH Lab / Micro Data 11/29/24 05:50 11/29/24 05:50 Labs: Laboratory Results - last 24 hr 11/28/24 19:45: WBC 6.3, RBC 3.89 L, Hgb 12.0, Hct 36.3 L, MCV 93.3, MCH 30.8, MCHC 33.1, RDW Std Deviation 44.5 H, RDW Coeff of Andreia 13.0, Plt Count 196, MPV 10.1, Immature Gran % (Auto) 0.300, Neut % (Auto) 63.7, Lymph % (Auto) 23.5, Randall % (Auto) 7.9, Eos % (Auto) 3.2, Baso % (Auto) 1.4 H, Absolute Neuts (auto) 4.0, Absolute Lymphs (auto) 1.48, Nucleated RBC % 0, Sodium 135, Potassium 4.4, Chloride 100, Carbon Dioxide 23.4, Anion Gap 13, BUN 14, Creatinine 0.76, Estim Creat Clear Calc 75.88, Est GFR (MDRD) Non-Af 87, BUN/Creatinine Ratio 18.8, G lucose 101 H, Calcium 9.1, Phosphorus 3.8, Magnesium 2.0, Total Bilirubin 0.44, Direct Bilirubin 0.20, AST 25, ALT 14, Alkaline Phosphatase 73, Troponin T High Sens 19 H, Troponin T Hi Sens 2 Hr 22 H, NT pro BNP II 101 11/28/24 19:45: NT pro BNP II 100, Total Protein 7.1, Albumin 4.1, Globulin 3.0, TSH 44.000 H, Free T4 0.70 L, Free T3 pg/dL 1.6 L 11/29/24 00:44: PT 14.2, INR 1.1, APTT > 200.0 H*, Troponin T Hi Sens 4Hr 28 H 11/29/24 05:50: WBC 5.7 11/29/24 05:50: WBC 6.0, RBC 3.98 L 11/29/24 05:50: RBC 4.00 L, Hgb 12.2 11/29/24 05:50: Hgb 12.1, Hct 37.1 11/29/24 05:50: Hct 37.3, MCV 93.2 11/29/24 05:50: MCV 93.3, MCH 30.7 11/29/24 05:50: MCH 30.3, MCHC 32.9 11/29/24 05:50: MCHC 32.4, RDW Std Deviation 44.6 H 11/29/24 05:50: RDW Std Deviation 44.7 H, RDW Coeff of Andreia 13.0 11/29/24 05:50: RDW Coeff of Andreia 13.0, Plt Count 208 11/29/24 05:50: Plt Count 212, MPV 10.6 11/29/24 05:50: MPV 10.6, Immature Gran % (Auto) 0.400 11/29/24 05:50: Immature Gran % (Auto) 0.300, Neut % (Auto) 64.9 11/29/24 05:50: Neut % (Auto) 65.6, Lymph % (Auto) 23.3 11/29/24 05:50: Lymph % (Auto) 22.5, Randall % (Auto) 8.8 11/29/24 05:50: Randall % (Auto) 9.2, Eos % (Auto) 1.4 11/29/24 05:50: Eos % (Auto) 1.2, Baso % (Auto) 1.2 H 11/29/24 05:50: Baso % (Auto) 1.2 H, Absolute Neuts (auto) 3.7 11/29/24 05:50: Absolute Neuts (auto) 3.9, Absolute Lymphs (auto) 1.33 11/29/24 05:50: Absolute Lymphs (auto) 1.34, Nucleated RBC % 0 11/29/24 05:50: Nucleated RBC % 0, Sodium 136, Potassium 3.7, Chloride 97 L, Carbon Dioxide 24.0, Anion Gap 15, BUN 12, Creatinine 0.67 L, Estim Creat Clear Calc 74.78, Est GFR (MDRD) Non-Af 96, BUN/Creatinine Ratio 17.1, Glucose 110 H, Calcium 9.4, Total Bilirubin 0.58, AST 25, ALT 11, Alkaline Phosphatase 75, Total Protein 7.3, Albumin 4.5, Globulin 2.8, Albumin/Globulin Ratio 1.6 11/29/24 09:15: APTT 75.8 H 11/29/24 : PT 14.9, INR 1.1, APTT 89.6 H Imaging Radiology Impression Chest X-Ray 11/28/24 19:55 IMPRESSION: No acute process in the chest. Due to suspicion for right hilar mass, CT chest with IV contrast follow-up is recommended Reading Location: [id number] Chest CTA 11/28/24 20:19 IMPRESSION: Acute right middle and lower lobe segmental-subsegmental pulmonary arterial emboli. Large ill-defined heterogeneous right middle mediastinal/suprahilar mass lesion, as described above. Localized mass-effect causing compression of the right main pulmonary artery, and significant compression and/or invasion of the lower superior vena cava. Additional enlarged superior mediastinal and multiple bilateral small hilar lymph nodes, presumably metastatic. Further workup recommended. Nonspecific 5 mm pulmonary nodule in the right upper lobe (see grant images). Reading Location: [facility] Abdomen/Pelvis CT 11/29/24 10:07 IMPRESSION: 1. Pulmonary embolus again seen in the right lower lobe. 2. Small amount of contrast within the vaginal canal, most consistent with reflux of excreted urinary bladder contrast through the urethra rather than a fistula. No definitive evidence of vesicovaginal fistula is identified. 3. No evidence of metastatic disease in the abdomen or pelvis. Reading Location: [facility] Assessment and Plan . Assessment and plan: HPI 64 yo female smoker admitted 11/28/24 w/ subacute dyspnea and diffuse body edema. She required 2 LPM O2 in the ED. pCXR reveals right hilar fullness. CTA chest performed and reveals RML and RLL lobar and segmental pulmonary emboli. There is also a large mediastinal mass adjacent to trachea, right PA, and SVC. She has been admitted and received diuretics, inhaled BD, and IV UFH. She is awake and alert in NAD. She is currently breathing RA comfortably. EXAM GEN NAD VS as above HEENT o/p clear NECK obese COR RRR CHEST CTA ABD soft, obese EXT LE pitting edema SKIN w/d MATTHEW NF ASSESSMENT 1. Mediastinal mass and right-sided PTED in a [place] female smoker - highly suspicious for advanced bronchogenic carcinoma w/ extrinsic compression of the right PA and SVC 2. Longstanding tobacco use TREATMENT PLAN -supplemental O2 as needed -inhaled BD as needed -loop diuretics as needed for peripheral edema -IV UFH vs. therapeutic LMWH for now -anticipate need for diagnostic bronchoscopy for diagnosis next week - d/w patient and briefly -TTE and abdominal CT scan pending The entirety of this encounter was done via Telemedicine
[2024-11-29 17:23] LABS: Partial Thromboplast Time 50.8 Seconds (24.1-36.2)
[2024-11-30 00:14] LABS: Partial Thromboplast Time 62.1 Seconds (24.1-36.2)
[2024-11-30 03:35] VITALS: BP 158/86; PULSE 81; RESP 20; TEMP 36.8; O2SAT 91
[2024-11-30 06:37] LABS: Hematocrit 34.5 % (37-47); Hemoglobin 11.3 g/dL (12.0-15.0); Immature Granulocytes Count 0.020 X10^3/uL (0.0-0.0); Mean Corp Hgb Conc 32.8 g/dL (32-36); Mean Corpuscular Volume 93.2 fL (81-99); Mean Platelet Vol. 10.7 fl (6.2-12.0); NRBC Flagged by Analyzer 0 % (0-5); Platelet Count 193 K/mm3 (150-450); RBC Distribution Width CV 13.2 % (11.6-14.6); RBC Distribution Width SD 44.9 fl (35.1-43.9); Red Blood Count 3.70 M/mm3 (4.2-5.4); White Blood Count 5.0 K/mm3 (4.4-11.0)
[2024-11-30] MEDS: HEPARIN/D5w 25,000 UNITS 25,000 UNITS/250 ML IV.SOLN. 8.4 UNITS CONT INF (06:37)
[2024-11-30 06:58] LABS: Partial Thromboplast Time 60.1 Seconds (24.1-36.2)
[2024-11-30 07:08] LABS: Anion Gap 12 (5-15); BUN 9 mg/dL (4-19); BUN/Creat Ratio 12.7 RATIO (10-20); Calcium,Total 9.3 mg/dL (7.6-11.0); Carbon Dioxide 25.5 mmol/L (21.0-32.0); Chloride 95 mmol/L (98-108); Estimated Creatinine Clearance 74.78 ml/min (50-250); Glucose 90 mg/dL (70-99); Potassium 3.8 mmol/L (3.3-5.1)
[2024-11-30 07:28] VITALS: O2SAT 92
[2024-11-30 07:56] VITALS: BMI 35.8
[2024-11-30 09:35] VITALS: BP 140/106; PULSE 77; RESP 20; TEMP 36.6; O2SAT 93
[2024-11-30] MEDS: 0.9% Saline Lock 10 ML Syringe IV (10:12)
[2024-11-30 11:56] VITALS: BP 144/84
--- NOTE | 2024-11-30 12:15 | PCM.PROGNOTE ---
Subjective Subjective Patient seen and examined. She had no active complaints. Review of systems is otherwise negative. She has remained hemodynamically stable and is on room air. Objective Data Objective Data Vital Signs: Vital Signs Temp Pulse Resp BP Pulse Ox O2 Del Method O2 Flow Rate 97.9 F 77 20 H 144/84 H 93 Room Air 2 11/30/24 09:35 11/30/24 09:35 11/30/24 09:35 11/30/24 11:56 11/30/24 09:35 11/30/24 09:35 11/28/24 23:00 Oxygen Flow Rate (L/min) 2 Oxygen Delivery Method Room Air Weight: 202 lb 3 oz Body Mass Index (BMI) 35.8 Intake & Output: Intake and Output for Last 24 Hours 11/28/24 11/29/24 11/30/24 23:59 23:59 23:59 Intake Total 136.52 / 376.52 349.9 / 349.9 Balance 136.52 / 376.52 349.9 / 349.9 Lab / Micro Data 11/30/24 05:40 11/30/24 05:40 Labs: Laboratory Results - last 24 hr 11/29/24 16:59: APTT 50.8 H 11/29/24 23:37: APTT 62.1 H 11/30/24 05:40: WBC 5.0, RBC 3.70 L, Hgb 11.3 L, Hct 34.5 L, MCV 93.2, MCH 30.5, MCHC 32.8, RDW Std Deviation 44.9 H, RDW Coeff of Andreia 13.2, Plt Count 193, MPV 10.7, Immature Gran % (Auto) 0.400, Neut % (Auto) 58.5, Lymph % (Auto) 24.6, [place] % (Auto) 13.1 H, Eos % (Auto) 2.0, Baso % (Auto) 1.4 H, Absolute Neuts (auto) 2.9, Absolute Lymphs (auto) 1.22, Nucleated RBC % 0, APTT 60.1 H, Sodium 133, Potassium 3.8, Chloride 95 L, Carbon Dioxide 25.5, Anion Gap 12, BUN 9, Creatinine 0.75, Estim Creat Clear Calc 74.78, Est GFR (MDRD) Non-Af 88, BUN/Creatinine Ratio 12.7, Glucose 90, Calcium 9.3 Radiography Diagnostic Testing: Radiology Impression Echocardiogram 11/29/24 00:52 Interpretation Summary Normal LV size. The left ventricular ejection fraction is 70 %. Stage 1 diastolic dysfunction. Pulmonary artery systolic pressure is 24 mmHg. Ordering Physician: Brandy Love Referring Physician: Gerry Brian Performed By: Riana Bernard RDCS Abdomen/Pelvis CT 11/29/24 10:07 IMPRESSION: 1. Pulmonary embolus again seen in the right lower lobe. 2. Small amount of contrast within the vaginal canal, most consistent with reflux of excreted urinary bladder contrast through the urethra rather than a fistula. No definitive evidence of vesicovaginal fistula is identified. 3. No evidence of metastatic disease in the abdomen or pelvis. Reading Location: [facility] Physical Exam Const alert, oriented x3 and no apparent distress General Appearance: cooperative HEENT normocephalic, head/scalp atraumatic, moist oral mucous membranes and oropharynx normal Eyes EOMs intact bilaterally Neck supple and no JVD Lymph Lymphatic: no lymphedema noted Resp Resp Narrative: Mildly diminished breath sounds bibasilarly. No wheezes or crackles. On room air Cardio regular rate, regular rhythm, S1 normal heart sound, S2 normal heart sound and no murmurs GI normal to inspection, nondistended, normoactive bowel sounds, soft to palpation, non-tender and non-distended Extremity normal capillary refill Extremity Narrative: 1+ bipedal pitting edema General Extremity: no tenderness to palpation of joints or extremities Skin General Skin Exam: no breakdown Neuro CN's II-XII intact bilaterally, no focal motor deficits and no sensory deficits noted Motor Exam: general weakness Psych thought process normal and cooperative Appearance: appropriate Assessment & Plan Assessment/Plan (1) Pulmonary emboli: PLAN: Plan #Acute hypoxia due to right mediastinal and suprahilar lung mass as well as acute right lower lobe subsegmental PE Patient admitted with a complaint of shortness of breath. Imaging done showed a large ill-defined heterogeneous right middle mediastinal and suprahilar mass lesion with localized effect causing compression of the right main pulmonary artery as well as compression and/or invasion in the lower superior vena cava with notable regional lymphadenopathy Imaging also showed evidence of right middle and lower lobe PE in the subsegmental regions. Currently on heparin drip. She has a chronic smoking history smoking about at least 1 pack a day since her 20s so this therefore is very likely cancer. Pulmonology on board. Will need bronchoscopy with biopsy, per pulm. Currently on heparin drip. CT abdomen and pelvis done with contrast showed no evidence of any mets. 2D echo showed EF of 70% and stage I diastolic dysfunction and no regional wall motion abnormality. #Hypothyroidism: TSH is elevated at 44. Free T4 and T3. This likely the cause of her generalized swelling. already on synthroid synthroid dose increased to 200mcg daily. She claims compliance with her meds. #Nicotine dependence: Counseled strongly to quit in light of the common findings in her lungs. Nicotine patch as needed #Class II obesity: BMI is 36.2. Complicates acute care, expected current prognosis. DVT prophylaxis: On heparin drip. Hold heparin at 12 midnight, in preparation of possible bronch tomorrow. CODE STATUS: Full code Charges/Coding Visit Charges Inpatient E&M: 77641 Subs Hosp L2
--- NOTE | 2024-11-30 15:07 | PN.CC_ITS ---
Objective Data Objective Data Vital Signs: Vital Signs Last response 3 Temperature 36.6 C 11/30/24 09:35 Temperature Source Oral 11/30/24 09:35 Pulse Rate 77 11/30/24 09:35 Pulse Strength Normal (2+) 11/30/24 10:00 Respiratory Rate 20 H 11/30/24 09:35 Respiratory Effort Normal, Non-Labored 11/30/24 08:09 Respiratory Depth Normal 11/30/24 08:09 Respiratory Pattern Normal 11/30/24 08:09 Blood Pressure 144/84 H 11/30/24 11:56 Blood Pressure Mean 104 11/30/24 11:56 Blood Pressure Source Monitor 11/30/24 11:56 Blood Pressure Position Sitting 11/30/24 11:56 Blood Pressure Location Left Forearm 11/30/24 11:56 Pulse Ox 93 11/30/24 09:35 Oxygen Delivery Method Room Air 11/30/24 09:35 Oxygen Flow Rate (L/min) 2 11/28/24 23:00 I&O: I&O Last 24 Hours 3 11/29/24 11/30/24 11/30/24 23:59 11:59 23:59 Intake Total 48.59 / 376.52 349.9 / 349.9 Balance 48.59 / 376.52 349.9 / 349.9 I&O: Total Stay 3 11/28/24 19:31 thru 11/30/24 12:00 Intake Total 486.42 Balance 486.42 Current Meds Ordered / Administered: Current meds ordered / Administered 3 Generic Name Dose Route Start Last Admin Trade Name Freq PRN Reason Stop Dose Admin Acetaminophen 650 mg 11/29/24 00:52 Acetaminophen 325 Mg Tablet PO Q4H PRN PRN Fever, pain 1-10/10 Al Hydroxide/Mg Hydroxide 30 ml 11/29/24 00:52 Mag Hydrox/Al Hydrox/Simeth 30 Ml Udc PO Q6H PRN PRN Gastric Burning Albuterol Sulfate 2.5 mg 11/29/24 00:52 Albuterol 2.5 Mg/3 Ml Vial.Neb. INHALATION Q2H PRN PRN Dyspnea, wheezing Albuterol/Ipratropium 3 ml 11/29/24 00:52 Ipratropium/Albuterol Sulfate 3 Ml Ampul.Neb INHALATION Q6HWA.RT MAUREEN Furosemide 40 mg 11/30/24 10:00 11/30/24 10:12 Furosemide 40 Mg/4 Ml Vial IV 40 mg DAILY MAUREEN Administration Protocol Guaifenesin 10 ml 11/29/24 00:52 Guaifenesin 10 Ml Udc (200mg/10ml) PO Q4H PRN PRN COUGH/CONGESTION Heparin Sodium (Porcine) 0 unit 11/28/24 22:40 Heparin Nomogram Adjustment 5,000 Unit/Ml Vial IV UD PRN Dose Adjustment Protocol Hydralazine HCl 10 mg 11/29/24 00:52 Hydralazine 20 Mg/Ml Vial IV Q4H PRN PRN SBP > 160 Protocol Heparin Sodium/Dextrose 25,000 units in 250 mls @ 11.414 mls/hr 11/28/24 22:40 11/30/24 06:37 CONT INF 8.83 unit/kg/hr .[id number] MAUREEN 8.4 mls/hr Protocol Administration 12 UNIT/KG/HR Sodium Chloride 250 mls @ 15 mls/hr 11/29/24 00:25 IV .[id number] PRN Saline Flush Sodium Chloride 250 mls @ 15 mls/hr 11/29/24 00:25 IV .[id number] PRN Additional IVPB Infusion Levothyroxine Sodium 200 mcg 12/01/24 06:00 Levothyroxine 100 Mcg Tablet PO DAILY@0600 [facility] Melatonin 3 mg 11/29/24 00:52 Melatonin 3 Mg Tablet PO QHS PRN PRN INSOMNIA Ondansetron HCl 4 mg 11/29/24 00:52 Ondansetron 4 Mg/2 Ml Vial IV Q8H PRN PRN NAUSEA/VOMITING Senna/Docusate Sodium 2 tablet 11/29/24 00:52 Senna/Docusate Sodium 1 Tablet PO BID PRN PRN Constipation Sodium Chloride 10 - 40 ml 11/29/24 00:25 11/30/24 10:12 0.9% Saline Lock 10 Ml Syringe IV 10 ml UD PRN Administration SALINE FLUSH Lab / Micro Data 11/30/24 05:40 11/30/24 05:40 Labs: Laboratory Results - last 24 hr 11/29/24 16:59: APTT 50.8 H 11/29/24 23:37: APTT 62.1 H 11/30/24 05:40: WBC 5.0, RBC 3.70 L, Hgb 11.3 L, Hct 34.5 L, MCV 93.2, MCH 30.5, MCHC 32.8, RDW Std Deviation 44.9 H, RDW Coeff of Andreia 13.2, Plt Count 193, MPV 10.7, Immature Gran % (Auto) 0.400, Neut % (Auto) 58.5, Lymph % (Auto) 24.6, M fredy % (Auto) 13.1 H, Eos % (Auto) 2.0, Baso % (Auto) 1.4 H, Absolute Neuts (auto) 2.9, Absolute Lymphs (auto) 1.22, Nucleated RBC % 0, APTT 60.1 H, Sodium 133, Potassium 3.8, Chloride 95 L, Carbon Dioxide 25.5, Anion Gap 12, BUN 9, Creatinine 0.75, Estim Creat Clear Calc 74.78, Est GFR (MDRD) Non-Af 88, BUN/Creatinine Ratio 12.7, Glucose 90, Calcium 9.3 Assessment and Plan . Assessment and plan: HPI 64 yo female smoker admitted 11/28/24 w/ subacute dyspnea and diffuse body edema. She required 2 LPM O2 in the ED. pCXR reveals right hilar fullness. CTA chest performed and reveals RML and RLL lobar and segmental pulmonary emboli. There is also a large mediastinal mass adjacent to trachea, right PA, and SVC. She has been admitted and received diuretics, inhaled BD, and IV UFH. She is awake and alert in NAD. She is currently breathing RA comfortably. 11/30/24 She feels OK UFH infusing - therapeutic TTE noted - RV and PASP unremarkable EXAM GEN NAD VS as above HEENT o/p clear NECK obese COR RRR CHEST CTA ABD soft, obese EXT LE pitting edema SKIN w/d MATTHEW NF ASSESSMENT 1. Mediastinal mass and right-sided PTED in a [place] female smoker - highly suspicious for advanced bronchogenic carcinoma w/ extrinsic compression of the right PA and SVC 2. Longstanding tobacco use TREATMENT PLAN -supplemental O2 as needed -inhaled BD as needed -loop diuretics as needed for peripheral edema -IV UFH vs. therapeutic LMWH for now -anticipate need for diagnostic bronchoscopy for diagnosis this week - d/w patient and briefly -TTE noted The entirety of this encounter was done via Telemedicine
[2024-11-30 15:35] VITALS: BP 131/94; PULSE 76; RESP 22; TEMP 36.4; O2SAT 91
--- NOTE | 2024-11-30 15:54 | CPS ---
patient does not want treatments. states she does not take at home and they really did not help in the ED. she will call if she changes her mind.
--- NOTE | 2024-11-30 19:14 | NURSING ---
Went in patient's room with Dr. Acuña this morning, she verbally ordered the Heparin drip be held at midnight for possible bronchoscopy tomorrow. She also have it in her notes to hold it.
[2024-11-30 21:16] VITALS: BP 118/89; PULSE 74; RESP 16; TEMP 36.8; O2SAT 92
[2024-11-30 21:18] VITALS: BMI 35.8
[2024-12-01 03:15] VITALS: BP 140/75; PULSE 75; RESP 18; TEMP 36.6; O2SAT 91
[2024-12-01 05:44] LABS: Hematocrit 33.6 % (37-47); Hemoglobin 11.1 g/dL (12.0-15.0); Immature Granulocytes Count 0.010 X10^3/uL (0.0-0.0); Mean Corp Hgb Conc 33.0 g/dL (32-36); Mean Corpuscular Volume 92.6 fL (81-99); Mean Platelet Vol. 10.2 fl (6.2-12.0); NRBC Flagged by Analyzer 0 % (0-5); Platelet Count 189 K/mm3 (150-450); RBC Distribution Width CV 12.9 % (11.6-14.6); RBC Distribution Width SD 44.2 fl (35.1-43.9); Red Blood Count 3.63 M/mm3 (4.2-5.4); White Blood Count 5.0 K/mm3 (4.4-11.0)
[2024-12-01 05:54] LABS: Partial Thromboplast Time 29.3 Seconds (24.1-36.2)
[2024-12-01 06:00] VITALS: BMI 35.8
[2024-12-01 06:31] LABS: Anion Gap 12 (5-15); BUN 12 mg/dL (4-19); BUN/Creat Ratio 18.6 RATIO (10-20); Calcium,Total 9.4 mg/dL (7.6-11.0); Carbon Dioxide 26.1 mmol/L (21.0-32.0); Chloride 94 mmol/L (98-108); Estimated Creatinine Clearance 74.39 ml/min (50-250); Glucose 90 mg/dL (70-99); Potassium 3.5 mmol/L (3.3-5.1)
[2024-12-01 08:02] VITALS: BP 99/65; PULSE 70; RESP 18; TEMP 37; O2SAT 90
--- NOTE | 2024-12-01 09:30 | PN.HOSP_ITS ---
Reason for Visit Chief Complaint: Dyspnea, generalized weakness, edema. Subjective Subjective Breathing well. Decreased edema throughout. Objective Data Objective Data Vital Signs: Vital Signs Temp Pulse Resp BP Pulse Ox O2 Del Method O2 Flow Rate 37.0 C 70 18 99/65 90 Room Air 2 12/01/24 08:02 12/01/24 08:02 12/01/24 08:02 12/01/24 08:02 12/01/24 08:02 12/01/24 08:13 11/30/24 14:11 Oxygen Flow Rate (L/min) 2 Oxygen Delivery Method Room Air Weight: 91.7 kg Body Mass Index (BMI) 35.8 Intake & Output: Intake and Output for Last 24 Hours 11/29/24 11/30/24 12/01/24 23:59 23:59 23:59 Intake Total 136.52 / 376.52 349.9 / 745.92 396.02 / 396.02 Balance 136.52 / 376.52 349.9 / 745.92 396.02 / 396.02 Lab / Micro Data 12/01/24 05:18 12/01/24 05:18 Labs: Laboratory Results - last 24 hr 12/01/24 05:18: WBC 5.0, RBC 3.63 L, Hgb 11.1 L, Hct 33.6 L, MCV 92.6, MCH 30.6, MCHC 33.0, RDW Std Deviation 44.2 H, RDW Coeff of Andreia 12.9, Plt Count 189, MPV 10.2, Immature Gran % (Auto) 0.200, Neut % (Auto) 59.1, Lymph % (Auto) 23.2, M fredy % (Auto) 13.9 H, Eos % (Auto) 2.2, Baso % (Auto) 1.4 H, Absolute Neuts (auto) 2.9, Absolute Lymphs (auto) 1.15, Nucleated RBC % 0, APTT 29.3, Sodium 133, Potassium 3.5, Chloride 94 L, Carbon Dioxide 26.1, Anion Gap 12, BUN 12, C reatinine 0.66 L, Estim Creat Clear Calc 74.39, Est GFR (MDRD) Non-Af 97, BUN/Creatinine Ratio 18.6, Glucose 90, Calcium 9.4, TSH 36.600 H Physical Exam Const alert and no apparent distress Constitutional Narrative: sitting at the side of the bed. HEENT head/scalp atraumatic and moist oral mucous membranes Resp normal respiratory effort, no retractions, no use of accessory muscles and clear to auscultation bilaterally Cardio regular rate, regular rhythm, S1 normal heart sound and S2 normal heart sound GI normal to inspection, nondistended, normoactive bowel sounds and soft to palpation Extremity Extremity Narrative: non-pitting upper and lower extremity edema. Assessment & Plan Assessment/Plan (1) Pulmonary emboli: PLAN: Plan Lung mass: * concern for malignancy. * Patient and met with Dr. Crum and plan is for the have and EBUS facilitated bronchoscopy with biopsy this coming Sunday. * Discussed with patient and that P matter getting the biopsy, waiting for pathology and then depending on the final pathology results possible referral to oncology * No metastatic disease noted on CT A/P on 11/29 Pulmonary emboli * Concern for cancer associated * CTA of the chest showed acute right middle and left lower lobe segmental subsegmental pulmonary arterial emboli * Apixaban but patient to hold dose on the until after the bronchoscopy on the . * 2D echo showed EF of 70% and stage I diastolic dysfunction and no regional wall motion abnormality. Edema * Patient noted throughout so it is unclear if patient did have acute DVTs concurrently or if there is an embolized to her lungs but patient was also having in her face with what sounds like plethora as well as upper extremities. CAT scan noted significant compression and/or invasion of the lower superior vena cava. Cannot rule out superior vena cava syndrome but patient notes that her edema is much better at this time. Complicating this is patient was hypothyroid so that could been also another contributing factor. * Will continue with furosemide. Hypothyroidism: * TSH is elevated at 44. Low Free T4 and T3. * synthroid dose increased to 200mcg daily (increased from 150). She claims compliance with her meds. Chronic medical conditions: * Nicotine dependence: Counseled strongly to quit in light of the common findings in her lungs. Nicotine patch as needed * Class II obesity: BMI is 36.2. Complicates acute care, expected current prognosis. DVT prophylaxis: On heparin drip. Hold heparin at 12 midnight, in preparation of possible bronch
[2024-12-01 11:00] VITALS: BP 151/79; PULSE 77; RESP 18; TEMP 36.7; O2SAT 91
--- NOTE | 2024-12-01 11:40 | PCM.PN.INT ---
Assessment & Plan Assessment/Plan (1) Lung mass: (2) Pulmonary emboli: PLAN: Plan RECOMMENDATIONS: 1. Okay to transition from heparin infusion to Xarelto or Eliquis. 2. The patient has been scheduled for bronchoscopy with EBUS on Sunday. 3. Hold blood thinner 48 hours prior to procedure. This was discussed with the patient. 4. Recommend outpatient PFTs. 5. Perform walking oximetry study prior to consideration for discharge home, as I anticipate that the patient will require home-going supplemental O2. IMPRESSIONS: 1. Lung mass/subsegmental pulmonary emboli The patient initially presented with facial and neck swelling with potential concern for SVC syndrome in the setting of a large right-sided lung mass, compromising adjacent vascular structures. In addition, the patient was identified as having subsegmental right middle and lower lobe pulmonary emboli. She has done well clinically with diuresis. She is currently maintaining appropriate oxygen saturations on room air. I agree that the patient needs to proceed with bronchoscopy to obtain a biopsy. After reviewing her CT imaging, I recommend that we proceed with EBUS facilitated biopsying, which has been scheduled for this Sunday. Accordingly, the patient to be transition to either Eliquis or Xarelto, with plans to hold the medication 48 hours prior to her procedure. These recommendations were discussed with the patient at length. Risks and benefits of the proposed procedure were discussed with the patient and her . They are both in agreement to proceed. 2. History of tobacco dependency The patient reported a smoking history that includes 0.5 packs of cigarettes per day x 30 years. Accordingly, recommend outpatient pulmonary follow-up with baseline PFTs to be obtained. This note was generated with [employer] dictation software. It may contain incorrect words, spelling, and punctuation that were not noted in checking the note before signing. Subjective Subjective The patient was seen and examined at the bedside this morning. Events from the last 24 hours have been reviewed. The patient is currently afebrile, hemodynamically stable and maintaining appropriate oxygen saturations on room air. I reviewed the patient's chest imaging with the patient and her , who was present at the bedside. Explained to them that my plan is to proceed with bronchoscopy with EBUS capabilities, which will be scheduled for this Sunday. Objective Data Objective Data The patient's most recent lab work, culture data and imaging studies have all been personally reviewed. Vital Signs: Vital Signs Temp Pulse Resp BP Pulse Ox O2 Del Method O2 Flow Rate 98.6 F 70 18 99/65 90 Room Air 2 12/01/24 08:02 12/01/24 08:02 12/01/24 08:02 12/01/24 08:02 12/01/24 08:02 12/01/24 08:13 11/30/24 14:11 Oxygen Flow Rate (L/min) 2 Oxygen Delivery Method Room Air Weight: 202 lb 2.622 oz Body Mass Index (BMI) 35.8 Intake & Output: Intake and Output for Last 24 Hours 11/29/24 11/30/24 12/01/24 23:59 23:59 23:59 Intake Total 136.52 / 376.52 349.9 / 745.92 796.02 / 796.02 Balance 136.52 / 376.52 349.9 / 745.92 796.02 / 796.02 Lab / Micro Data Attestation: I reviewed the patient's lab results. 12/01/24 05:18 12/01/24 05:18 Labs: Laboratory Results - last 24 hr 12/01/24 05:18: WBC 5.0, RBC 3.63 L, Hgb 11.1 L, Hct 33.6 L, MCV 92.6, MCH 30.6, MCHC 33.0, RDW Std Deviation 44.2 H, RDW Coeff of Andreia 12.9, Plt Count 189, MPV 10.2, Immature Gran % (Auto) 0.200, Neut % (Auto) 59.1, Lymph % (Auto) 23.2, [place] % (Auto) 13.9 H, Eos % (Auto) 2.2, Baso % (Auto) 1.4 H, Absolute Neuts (auto) 2.9, Absolute Lymphs (auto) 1.15, Nucleated RBC % 0, APTT 29.3, Sodium 133, Potassium 3.5, Chloride 94 L, Carbon Dioxide 26.1, Anion Gap 12, BUN 12, Creatinine 0.66 L, Estim Creat Clear Calc 74.39, Est GFR (MDRD) Non-Af 97, BUN/Creatinine Ratio 18.6, Glucose 90, Calcium 9.4, TSH 36.600 H Physical Exam Const alert and no apparent distress Constitutional Narrative: is present at the bedside. General Appearance: cooperative HEENT normocephalic and head/scalp atraumatic Eyes PERRL, EOMs intact bilaterally and conjunctivae normal Neck supple General: trachea midline Chest inspection of chest normal Resp normal respiratory effort Auscultation: wheezes and diminished lung sounds Cardio regular rate and regular rhythm GI normal to inspection, nondistended, normoactive bowel sounds Extremity no clubbing, cyanosis or edema Skin no rashes or lesions noted Neuro CN's II-XII intact bilaterally, moves all extremities and no focal motor deficits Psych cooperative and affect normal Charges/Coding Visit Charges Inpatient E&M: 67015 Subs Hosp L3
[2024-12-01 11:48] VITALS: BP 151/79
[2024-12-01 13:02] VITALS: O2SAT 84; O2SAT 90
--- NOTE | 2024-12-01 13:40 | DS.PCM_ITS ---
Providers Date of Admission: 11/28/24 Primary Care Physician: Dr. Gerry Brian MD Consultations 11/29/24 00:52 Consult: Cab Supervisor / Pulmonary Medicine Routine Consulting Provider: Intensivists/Pulmonary Med Reason for Consult: Lung mass EMERGENT Consult: No MD Notified: Yes Date Notified: 11/29/24 Time Notified: 00:59 Method of Notification: Answering Service Reason For Visit: HYPOXIA, PE, LUNG MASS Diagnosis Discharge Diagnosis (1) Pulmonary emboli: Status: Acute Code(s): I26.99 - Other pulmonary embolism without acute cor pulmonale Plan Lung mass: * concern for malignancy. * Patient and met with Dr. Crum and plan is for the have and EBUS facilitated bronchoscopy with biopsy this coming Sunday. * Discussed with patient and that P matter getting the biopsy, waiting for pathology and then depending on the final pathology results possible referral to oncology * No metastatic disease noted on CT A/P on 11/29 Pulmonary emboli * Concern for cancer associated * CTA of the chest showed acute right middle and left lower lobe segmental subsegmental pulmonary arterial emboli * Apixaban but patient to hold dose on the until after the bronchoscopy on the . * 2D echo showed EF of 70% and stage I diastolic dysfunction and no regional wall motion abnormality. Edema * Patient noted throughout so it is unclear if patient did have acute DVTs concurrently or if there is an embolized to her lungs but patient was also having in her face with what sounds like plethora as well as upper extremities. CAT scan noted significant compression and/or invasion of the lower superior vena cava. Cannot rule out superior vena cava syndrome but patient notes that her edema is much better at this time. Complicating this is patient was hypothyroid so that could been also another contributing factor. * Will continue with furosemide. Hypothyroidism: * TSH is elevated at 44. Low Free T4 and T3. * synthroid dose increased to 200mcg daily (increased from 150). She claims compliance with her meds. Chronic medical conditions: * Nicotine dependence: Counseled strongly to quit in light of the common findings in her lungs. Nicotine patch as needed * Class II obesity: BMI is 36.2. Complicates acute care, expected current prognosis. DVT prophylaxis: On heparin drip. Hold heparin at 12 midnight, in preparation of possible bronch Medications at Discharge Home Medications apixaban 5 mg tablet 5 mg PO BID #90 tabs 12/01/24 furosemide 40 mg tablet (Lasix) 40 mg PO DAILY #30 tabs 12/01/24 levothyroxine 100 mcg tablet 200 mcg (2 x 100 mcg) PO DAILY@0600 #60 tabs 12/01/24 Hospital Course Operations None Procedures 2-D Echocardiogram Summary of Care Provided Minutes Spent on Discharge: 45 Hospital Course: This is a six 4-year-old female presents with shortness of breath. Underwent a CT of her chest that showed acute right middle and lower lobe segmental subsegmental pulmonary arterial emboli. It also showed a large ill-defined heterogenous right middle lobe mediastinal/suprahilar mass lesion. Localized mass effect causing oppression of the right main pulmonary artery and segment compression and/or invasion of the lower superior vena cava. Additionally enlarged superior mediastinal and multiple bilateral small hilar lymph nodes. Patient was seen by Dr. Crum of pulmonary and plan is for her to have EBUS facilitated bronchoscopy on the . Patient will be on apixaban for the PE but will hold those on the . Weight / BMI Weight Weight: 91.7 kg Body Mass Index (BMI) 35.8 ABG / Lab / Microbiology Data 12/01/24 05:18 12/01/24 05:18 Laboratory: Laboratory Results - last 24 hr 12/01/24 05:18: WBC 5.0, RBC 3.63 L, Hgb 11.1 L, Hct 33.6 L, MCV 92.6, MCH 30.6, MCHC 33.0, RDW Std Deviation 44.2 H, RDW Coeff of Andreia 12.9, Plt Count 189, MPV 10.2, Immature Gran % (Auto) 0.200, Neut % (Auto) 59.1, Lymph % (Auto) 23.2, M fredy % (Auto) 13.9 H, Eos % (Auto) 2.2, Baso % (Auto) 1.4 H, Absolute Neuts (auto) 2.9, Absolute Lymphs (auto) 1.15, Nucleated RBC % 0, APTT 29.3, Sodium 133, Potassium 3.5, Chloride 94 L, Carbon Dioxide 26.1, Anion Gap 12, BUN 12, C reatinine 0.66 L, Estim Creat Clear Calc 74.39, Est GFR (MDRD) Non-Af 97, BUN/Creatinine Ratio 18.6, Glucose 90, Calcium 9.4, TSH 36.600 H D/C Instructions DC O2, CPAP, BIPAP Needs Home O2 Discharge instructions: Yes Type of respiratory needs?: Oxygen Oxygen frequency: With Ambulation Oxygen liters per minute during Ambulation: 3 DC home with Oxygen: Yes Home O2 MD Review: I have reviewed the oxygen testing, and the patient qualifies for home oxygen equipment and portability. The patient is mobile in the home and the community. Meaningful Use Info Meaningful Use Meaningful Use Diagnoses (Choose all that apply): None applicable Discharge Plan Admission Admit Date/Time: 11/28/24 22:45 Primary Reason for Your Visit: lung mass. pulmonary emboli. Attending Provider: Lio Nelson Primary Care Provider: Gerry Brian Consulting Providers: Jethro Walton; Anthony Mckay; Yayo Mayen; Brayden Crum; Vinny Figueroa; Donato Bravo; Davy Diaz; Danyelle Reynolds; Rajan Alcaraz; Ricardo Chou; Raj Andrade; Mar Tapia; Cherri Benjamin; Carbone,Sulma; Yancy,Wesley; Sudeep Reddy; Slava Oshea; Levon Spear; Melinda Carlin; Rosalina Palmer; Aron Oglesby; Esteban Linares; Chasity Pozo; Jasvir Freeman; Brandy Love; Galina Acuña Instructions Additional Instructions / Restrictions: Follow-up with Dr. Crum of pulmonology to have a bronchoscopy performed on . You will be on apixaban for your for your blood clots but you will hold those starting the . Resume the apixaban when okay with Dr. Crum after your biopsy. Discharge Orders/Prescriptions Prescriptions: New levothyroxine 100 mcg Tablet 200 mcg PO DAILY@0600 Qty: 60 0RF apixaban 5 mg tablet 5 mg PO BID Qty: 90 0RF Rx Instructions: 2 tabs evening of 12/01, then 2 tabs twice daily 12/02, then hold, then 2 tabs twice daily for 7 days (after bronchoscopy), then 1 tab twice daily thereafter. furosemide [Lasix] 40 mg tablet 40 mg PO DAILY Qty: 30 0RF Discontinued levothyroxine 150 MCG tablet 150 mcg PO DAILY Referrals / Follow Up: Brayden Crum DO [Med Staff - Active Staff, Pulmonary Medicine] - 12/05/24 Referral Note: for bronchoscopy Gerry Brian MD [Primary Care Provider, [facility]] - Within 2 Weeks Disposition Disposition (needs filled in before D/C Order can be placed): Home, Self Care Charges/Coding Visit Charges Inpatient E&M: 79152 Disch Hosp >30min
--- NOTE | 2024-12-01 13:54 | CHAPLAIN ---
Type of Pastoral Visit __x_ Initial Visit ___ Follow-up Visit ___ On-call Visit ___ General Patient Visit ___ Spiritual Assessment ___ Family Conference ___ Bereavement ___ Rapid Response ___ Code Blue ___ Other (describe below) Pastoral Care Referral From _x__ Patient ___ Family ___ Nurse ___ Physician ___ It Training Specialist ___ Thermoforming Machine Operator ___ Other (describe below) Sacrament/Intervention _x__ Active listening ___ Anointing ___ Jew ___ Bereavement ___ Communion ___ Saba exploration ___ ___ Life review ___ Prayer ___ Reconciliation ___ Sacrament of Sick _x__ Supportive presence ___ Wedding ___ Other (describe below) Pastoral Comments first attempt and patient was unavailable; second attempt the patient is sitting up in bed and able to explain her situation; pt declares that she is going home today and that she is feeling much better now; spouse is with her and showing support; pt denies having worries now and declines further interventions
[2024-12-01] MEDS: APIXABAN 5 MG TABLET 10 MG PO (14:20)
--- NOTE | 2024-12-01 14:30 | PHA.DC_ITS ---
Pharmacy [facility] Counseling Pharmacy Service has performed discharge medication reconciliation and counseling for this patient. 1. APIXABAN 10MG PO BID 12/01-12/02, HOLD FOR BRONCHOSCOPY, THEN 10MG BID X 7 DAYS FOLLOWED BY 5MG BID THEREAFTER 2. FUROSEMIDE 40MG PO DAILY 3. LEVOTHYROXINE CHANGED TO 200MCG DAILY The patient's discharge medication list was reviewed for discrepancies and discrepancies were resolved. The patient was counseled on the following discharge medications and changes in medications for homegoing were reviewed. The Reason for Use, instructions for use, and potential side effects were reviewed for all new medications. The patient's questions regarding all of their medications were answered. The patient was able to verbally demonstrate an understanding of their discharge medications. Medications at Discharge Home Medications apixaban 5 mg tablet 5 mg PO BID #90 tabs 12/01/24 furosemide 40 mg tablet (Lasix) 40 mg PO DAILY #30 tabs 12/01/24 levothyroxine 100 mcg tablet 200 mcg (2 x 100 mcg) PO DAILY@0600 #60 tabs 12/01/24
--- NOTE | 2024-12-01 14:48 | CASEMGMT ---
Patient has order for discharge. Patient is requiring oxygen at discharge, script received and referral sent to [facility]. Patient is discharging on [place], TYSON CRUZ called Agusto, copay is $212.13 , Eliquis copay card provided to patient. [facility] updated RN NANCY to provide tank from stock. RN NANCY delivered oxygen tank. Patient and concerned about billing, TYSON CRUZ encouraged patient and to discuss bill with billing department when received and provided Patient Experience and Psych Coordinator information for any further questions or concerns. Patient and had no further questions or concerns. TYSON CRUZ updated discharge plan.
== END 2024-12-01 15:01 | disposition home or self-care (01) | DRG 176 ==
LOC: ED 20:12 → PCU 22:56
PROVIDERS: Student in an Organized Health Care Education/Training Program; Admitting Provider Family Medicine; Emergency Provider Student in an Organized Health Care Education/Training Program; PCP Family Medicine
DX: I26.99 Other pulmonary embolism without acute cor pulmonale (principal); I24.89 Other forms of acute ischemic heart disease; E03.9 Hypothyroidism, unspecified; I77.1 Stricture of artery; E66.812 Obesity, class 2; M48.02 Spinal stenosis, cervical region; F17.210 Nicotine dependence, cigarettes, uncomplicated; N18.2 Chronic kidney disease, stage 2 (mild); I26.93 Single subsegmental thrombotic pulmonary embolism without acute cor pulmonale; R60.1 Generalized edema; R09.02 Hypoxemia; R03.0 Elevated blood-pressure reading, without diagnosis of hypertension; R91.8 Other nonspecific abnormal finding of lung field; Z68.36 Body mass index [BMI] 36.0-36.9, adult; Z79.890 Hormone replacement therapy; Z79.899 Other long term (current) drug therapy
CPT/HCPCS: 36415; 71045; 71275; 74177; 80048; 80053; 80076; 83735; 83880; 84100; 84439; 84443; 84481; 84484; 85025; 85610; 85730; 93306; 94640; 94668; 94760; 97802; 99285; 99406; Q9957; Q9967; A4216; J1938

== ENCOUNTER 2024-12-05 09:37 | Day surgery (SDC) | payer BC, SELFPAY ==
--- NOTE | 2024-12-01 12:36 | PCM.HP.STD ---
HPI - General General Date of Service: 12/05/24 Chief Complaint: Lung mass HPI Narrative The patient is a 64-year-old female with an extensive tobacco abuse history, who presented to the emergency department on November 28 with shortness of breath and facial and neck swelling. Subsequent workup including CTA chest demonstrated a large right middle lobe lung mass with extensive infiltration into the mediastinal and vascular structures. I was subsequently consulted to evaluate the patient for bronchoscopy. The patient's smoking history include 0.5 packs of cigarettes per day x 30 years. Her hospital course was complicated by subsegmental PE, which was treated with anticoagulation. [facility] Medical History (Updated 12/01/24 @ 11:[address] Brayden Crum DO) Obesity CKD (chronic kidney disease), stage II Tobacco use Hypothyroidism Home Medications Medication Instructions Recorded Last Taken Type levothyroxine 150 mcg tablet 150 mcg PO DAILY 05/15/19 Unknown History Allergy/AdvReac Type Severity Reaction Status Date / Time acetaminophen (From Vicodin) AdvReac Vomiting Verified 11/28/24 19:31 hydrocodone (From Vicodin) AdvReac Vomiting Verified 11/28/24 19:31 Family History Mother Heart disease Diabetes Seizures Father Heart disease CAD (coronary artery disease) Hypertension Myocardial infarction Surgical History H/O rotator cuff surgery H/O spinal fusion Social History household members: spouse Smoking Status: Current every day smoker tobacco type: cigarettes alcohol intake: current alcohol intake frequency: holidays/special occasions only substance use type: does not use ROS ROS Narrative 10 systems were reviewed with pertinent positives as noted in the HPI above. Physical Exam Const alert and no apparent distress General Appearance: cooperative HEENT normocephalic and head/scalp atraumatic Neck supple General: trachea midline Resp normal respiratory effort Auscultation: wheezes and diminished lung sounds Cardio regular rate and regular rhythm GI normal to inspection, nondistended, normoactive bowel sounds Extremity no clubbing, cyanosis or edema Skin General Skin Exam: no breakdown Neuro CN's II-XII intact bilaterally, no focal motor deficits and no sensory deficits noted Psych cooperative and affect normal Assessment & Plan Assessment/Plan (1) Lung mass: PLAN: The patient initially presented with facial and neck swelling with potential concern for SVC syndrome in the setting of a large right-sided lung mass, compromising adjacent vascular structures. In addition, the patient was identified as having subsegmental right middle and lower lobe pulmonary emboli. She has done well clinically with diuresis. She is currently maintaining appropriate oxygen saturations on room air. I agree that the patient needs to proceed with bronchoscopy to obtain a biopsy. After reviewing her CT imaging, I recommend that we proceed with EBUS facilitated biopsying, which has been scheduled for this Sunday. Accordingly, the patient to be transition to either Eliquis or Xarelto, with plans to hold the medication 48 hours prior to her procedure. These recommendations were discussed with the patient at length. Risks and benefits of the proposed procedure were discussed with the patient and her . They are both in agreement to proceed.
[2024-12-05] VITALS (11 sets, daily range): BP systolic 132–152; BP diastolic 69–94; PULSE 73–90; RESP 14–18; TEMP 36.1–36.6; O2SAT 90–96; BMI 35.2
--- NOTE | 2024-12-05 | ASPIG_PTH ---
PATIENT: MASON BENJAMIN LOC: EN U#:[id number] AGE/SX: 64/F ROOM: RE12/05/[address]: Dr. Brayden Crum DO : 1960 BED: DIS: 12/05/2024 SPEC #: [id number] RECD: 12/05/24 12:22 STATUS: PHILLY REKriss #: [id number] CYNTHIA: 12/05/24 00:[address]: Brayden Crum DEPT: CYTOLOGY RECD BY: Low Fernandez ENTERED: 12/05/24 12:24 SP TYPE: ASP OUT OTHR DR: Dr. Gerry Brian MD Tissues: A - Lung, NOS B - Lung, NOS C - Lung, NOS Procedures: FNA Specimen Adequacy Immunohistochemical Stains Special Stain Group II Surgery Specimen Level IV Cytology Other IHC Stain ADDITIONAL HEADER OPERATION: Endobronchial ultrasound PRE-OP DIAGNOSIS: Lung mass TISSUE SUBMITTED: A- C- EBUS DIAGNOSIS CYTOLOGY A. Right lung, site 10R, EBUS/TBNA (cellblock, smear x4): - Small cell lung carcinoma. - Focal squamous differentiation - see note and Comment. Note: IHC performed - Positive: pankeratin, CK7, CK5/6, p40, TTF-1, Chromogranin, Synaptophysin, Ki67 (80%). Negative: CK20, Napsin A. B. Right lung, site 7, EBUS/TBNA (cellblock, smear x4): - Atypical small cells consistent with small cell lung carcinoma. C. Right lung, site 4R, EBUS/TBNA (cellblock, smear x4): - Atypical small cells consistent with small cell lung carcinoma. COMMENT: The immunostain pattern supports the histologic/cytologic impression of small cell lung carcinoma. The focal positivity for CK5/6 and p40 may be highlighting benign bronchial wall or submucosal glands. Selected slides/images were reviewed in intradepartmental consultation by Dr Twin Boland (thoracic pathology division, [facility]). COMMENT The specimen is evaluated at the time of biopsy by Dr. Barrios. Immediate Evaluation = A1. Scant cellularity. A2. Atypical cells, suspicious for malignancy. B1. Atypical cells. B2. Benign. C1. Atypical cells. C2. Atypical cells, suspicious for malignancy. CYTOLOGY STUDY Slides are reviewed. CYTOLOGY GROSS A 1. Received labeled with the patient's name and and designated "EBUS, TBNA, site 10R # 1." The specimen consists of two stained smears for RUBY. A 2. Received labeled with the patient's name and and designated "EBUS, TBNA, site 10R #2." The specimen consists of two stained smears for RUBY. B 1. Received labeled with the patient's name and and designated "EBUS, TBNA, site 7 #3." The specimen consists of two stained smears for RUBY. B 2. Received labeled with the patient's name and and designated "EBUS, TBNA, site 7 #4." The specimen consists of two stained smears for RUBY. C 1. Received labeled with the patient's name and and designated "EBUS, TBNA, site 4R #5." The specimen consists of two stained smears for RUBY. C 2. Received labeled with the patient's name and and designated "EBUS, TBNA, site 4R #6." The specimen consists of two stained smears for RUBY. 12/05/2024 CPT:77022g6,70691t7,41997,50379l1
[2024-12-05] MEDS: Lactated Ringers 1,000 ML 15 ML IV (10:16)
--- NOTE | 2024-12-05 10:50 | PRE.ANES_ITS ---
ASA Classification* ASA Classification ASA Classification: 3 Assessment & Plan Anesthesia* Anesthesia Assessment Anesthesia Assessment: Discussed sedation and/or anesthesia options, risks, benefits, and alternatives with patient/parents/legal guardian/POA. Questions invited. The patient/parents/legal guardian/POA seems to understand and agrees to proceed with anesthesia plan. Reviewed the physical assessment, medical history, allergy history and patient home medications list prior to surgery/procedure/anesthetic and documented any changes. Performed airway and anesthesia risk assessments. Anesthesia Type Anesthesia Type: General (I spoke with surgeon regarding the mass. Seems like is not compressing the trachea.) History Source History Obtained from:: Patient and Chart Anesthesia Focused Assessment* Temperature: 97.8 F Pulse Rate: 73 Blood Pressure: 134/73 Respiratory Rate: 18 Pulse Ox: 93 Oxygen Delivery Method: Room Air Airway Assessment Mouth opens: >3 cm Mallampati Score: II Teeth Condition: Dentures Neck Range of motion (ROM): Limited ROM Labs Anesthesia Preop lab: CBC WBC, (4.4-11.0) 5.0 K/mm3 12/01/24, 05:18 RBC, (4.2-5.4) 3.63 M/mm3 L 12/01/24, 05:18 Hgb, (12.0-15.0) 11.1 g/dL L 12/01/24, 05:18 Hct, (37-47) 33.6 % L 12/01/24, 05:18 Plt Count, (150-450) 189 K/mm3 12/01/24, 05:18 CHEMISTRY Potassium, (3.3-5.1) 3.5 mmol/L 12/01/24, 05:18 Sodium, (133-145) 133 mmol/L 12/01/24, 05:18 Magnesium, (1.5-2.2) 2.0 mg/dL 11/28/24, 19:45 Phosphorus, (2.7-4.5) 3.8 mg/dL 11/28/24, 19:45 BUN, (4-19) 12 mg/dL 12/01/24, 05:18 Creatinine, (0.70-1.20) 0.66 mg/dL L 12/01/24, 05:18 Glucose, (70-99) 90 mg/dL 12/01/24, 05:18 TSH, (0.300-4.200) 36.600 uIU/mL H 12/01/24, 05:18 COAG PT, (11.7-14.9) 14.9 SECONDS 11/29/24, Unknown Pre-Assessment Diagnosis/Proposed Procedure Planned Operative Procedure(s): EBUS Anesthesia History Anesthesia History - information systems administrator: Anesthesia History - information systems administrator Hx Hospitalization Yes: INFLAMMATION -FOUND 12/03/24 11:05 LUNG MASS Any Problems With Anesthesia No 12/03/24 11:05 Cholinesterase deficiency No 12/03/24 11:05 You/Your Family Experience No 12/03/24 11:05 fever (hyperthermia) with Relationship Recent Exposure to Contagious No 12/05/24 10:11 Disease Does patient have nerve No 12/03/24 11:05 stimulator Patient instructed to have device shut off --Does patient have Pacemaker No 12/05/24 10:11 or ICD? When Was Last Pacemaker Check QUESTION #4 FULL TEXT: You/Your Family Experience fever (hyperthermia) with Anesthesia Last Oral Intake Last Oral intake: Last Oral Intake NPO since 19:00 12/05/24 10:11 Meds taken in AM with sips of Yes 12/05/24 10:11 water? 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 - information systems administrator: PONV - information systems administrator Female Yes 12/03/24 11:05 HX of Motion Sickness No 12/03/24 11:05 HX of N/V After Surgery No 12/03/24 11:05 Non-Smoker No 12/03/24 11:05 Duration of Surgery greater No 12/03/24 11:05 than 60 minutes Number of Risk Factors 1 12/03/24 11:05 PONV Score Low Risk 12/03/24 11:05 Height & Weight Height & Weight: Anesthesia: Height & Weight Height 5 ft 3 in 12/05/24 10:11 Weight: 90.2 kg 12/05/24 10:11 Body Mass Index (BMI) 35.2 12/05/24 10:11 Respiratory Assessment Respiratory Assessment - information systems administrator: Respiratory Tract Infection Hx - information systems administrator Hx Respiratory Tract Infection No 12/03/24 11:05 STOP Sleep Apnea STOP Sleep Apnea - information systems administrator: STOP Sleep Apnea - information systems administrator Hx Hypertension No 12/03/24 11:05 Hx Sleep Apnea No 12/03/24 11:05 CPAP BIPAP Do you snore loudly (louder No 12/03/24 11:05 than talking or can be heard Do you often feel tired/ No 12/03/24 11:05 fatigued/ sleepy during daytime? Has anyone observed you stop No 12/03/24 11:05 breathing during sleep? STOP Results Negative 12/03/24 11:05 QUESTION #5 FULL TEXT : Do you snore loudly (louder than talking or can be heard through closed doors)? Tobacco Use History Tobacco Use History - information systems administrator: Tobacco Use History - information systems administrator Tobacco Use Smoking Status Current every day smoker 12/03/24 11:05 Hx Tobacco Use Yes 12/03/24 11:05 Years Smoking Packs Smoked per Day Smoking Cessation Date was within the last 15 years Hx Smoking Cessation Date Hx Smoking Cessation Counseling Hematologic Medial History Hematologic Hx - information systems administrator: Hematologic Medical Hx - billing rep Hx of Blood Transfusion No 12/03/24 11:05 Hx of Transfusion in last 3 No 12/03/24 11:05 Months Date of Last Transfusion (if within last 3 months) Ever experience any problems No 12/03/24 11:05 with transfusion(s)? Specify any problems Hx of Preganancy in last 3 No 12/03/24 11:05 Months Nurse Filling Out Transfusion [facility] 12/03/24 11:05 & Questions: Date: 12/03/24 12/03/24 11:05 Time: 11:17 12/03/24 11:05 Patient unable to answer at this time (ie. confused, unrespo /Reproduction History /Reproductive History - information systems administrator: /Reproductive Hx- information systems administrator Hx Now No 12/03/24 11:05 Gestational Age (in weeks): EDC: Hx Hx Para Hx Section SAB No 12/03/24 11:05 Active Medications Active Medications: Current Medications Generic Name Dose Route Start Last Admin Trade Name Freq PRN Reason Stop Dose Admin Lactated Ringer's 1,000 mls @ 15 mls/hr 12/05/24 10:00 12/05/24 10:16 IV 15 mls/hr .Q48H MAUREEN Administration PFSH Medical History Wears glasses Post-menopausal Bruising Thyroid disease Easy bruising Leg cramps Difficulty chewing Wears dentures Smoker On home oxygen therapy Hoarseness History of edema History of trigger finger Obesity CKD (chronic kidney disease), stage II Tobacco use Hypothyroidism Home Medications Medication Instructions Recorded Last Taken Type apixaban 5 mg tablet 5 mg PO BID #90 tabs 5 12/02/24 Rx furosemide 40 mg tablet (Lasix) 40 mg PO DAILY #30 tab s 12/01/24 12/04/24 Rx levothyroxine 100 mcg tablet 200 mcg (2 x 100 mcg) PO 12/01/24 12/05/24 Rx DAILY@0600 #60 tabs Allergy/AdvReac Type Severity Reaction Status Date / Time hydrocodone (From Vicodin) AdvReac Vomiting Verified 11/28/24 19:31 Family History Mother Heart disease Diabetes Seizures Father Heart disease CAD (coronary artery disease) Hypertension Myocardial infarction Surgical History History of surgery on wrist History of elbow surgery H/O rotator cuff surgery H/O spinal fusion Social History household members: spouse Smoking Status: Current every day smoker tobacco type: cigarettes alcohol intake: current alcohol intake frequency: holidays/special occasions only substance use type: does not use Review of Systems (Anesthesia) ROS Narrative System reviewed and no additional complaints, except as documented.
[2024-12-05] MEDS: Lactated Ringers 500 ML IV (11:01)
[2024-12-05] MEDS: Midazolam 2 MG/2 ML Syringe IV (11:04)
[2024-12-05] MEDS: Lidocaine 1% (5 ml sdv) 5 ML Vial 10 ML IV (11:07)
[2024-12-05] MEDS: Lidocaine Jelly 2% 20 ML Syringe (URO-JET) 1 APPLIC (11:14)
[2024-12-05] MEDS: fentaNYL 100 MCG/2 ML Ampul IV (11:33)
--- NOTE | 2024-12-05 11:58 | OP.BRONCH_ITS ---
Patient Name: Lynda Noble Procedure Date: 12/05/2024 10:39 AM Date of : 1960 Age: 64 Procedure: Bronchoscopy Indications: Abnormal CT scan of chest Providers: Brayden Crum MD Referring MD: Brayden Crum MD Complications: No immediate complications Procedure: Pre-Anesthesia Assessment: - A History and Physical has been performed. Patient meds and allergies have been reviewed. The risks and benefits of the procedure and the sedation options and risks were discussed with the patient. All questions were answered and informed consent was obtained. Patient identification and proposed procedure were verified prior to the procedure by the physician and the nurse in the procedure room. Mental Status Examination: alert and oriented. Airway Examination: normal oropharyngeal airway. Respiratory Examination: poor air movement. CV Examination: normal. ASA Grade Assessment: II - A patient with mild systemic disease. After reviewing the risks and benefits, the patient was deemed in satisfactory condition to undergo the procedure. The anesthesia plan was to use general anesthesia. Immediately prior to administration of medications, the patient was re-assessed for adequacy to receive sedatives. The heart rate, respiratory rate, oxygen saturations, blood pressure, adequacy of pulmonary ventilation, and response to care were monitored throughout the procedure. The physical status of the patient was re-assessed after the procedure. After I obtained informed consent, the scope was passed under direct vision. Throughout the procedure, the patient's blood pressure, pulse, and oxygen saturations were monitored continuously. The ultrasound bronchoscope was introduced through the mouth, via laryngeal mask airway and advanced to the tracheobronchial tree. The procedure was accomplished without difficulty. The patient tolerated the procedure well. Findings: The laryngeal mask airway is in good position. The vocal cords appear normal. The subglottic space is normal. The trachea is of normal caliber. The dhara is sharp. The tracheobronchial tree was examined to at least the first subsegmental level. Bronchial mucosa and anatomy are normal; there are no endobronchial lesions, and no secretions. The scope was withdrawn and replaced with the EBUS bronchoscope to accomplish the ultrasound examination. Lymph Nodes: An endobronchial ultrasound endoscope was utilized to systematically examine the right lower paratracheal region (level 4R), subcarinal mediastinum (level 7) and right hilar region (level 10R) in order to assist with guiding the biopsy needle. Lymph node sampling was performed via endobronchial ultrasound for suspected lung cancer. Sampling by transbronchial needle aspiration was also performed using an Olympus ViziShot 22 gauge needle in the right lower paratracheal region (level 4R), subcarinal mediastinum (level 7) and right hilar region (level 10R) and sent for routine cytology. - The 10R (hilar) node was evaluated. Two samples with the needle were obtained. - The 7 (subcarinal) node was evaluated. Two samples with the needle were obtained. - The 4R (paratracheal) node was evaluated. Four samples with the needle were obtained. Impression: - Abnormal CT scan of chest - The airway examination was normal. - Endobronchial ultrasound was performed. - Lung mass sampling was performed. Recommendation: - Await biopsy results. Procedure Code(s): --- Professional --- 50350, Bronchoscopy, rigid or flexible, including fluoroscopic guidance, when performed; with endobronchial ultrasound (EBUS) guided transtracheal and/or transbronchial sampling (eg, aspiration[s]/biopsy[ies]), 3 or more mediastinal and/or hilar lymph node stations or structures Diagnosis Code(s): --- Professional --- R93.89, Abnormal findings on diagnostic imaging of other specified body structures R09.89, Other specified symptoms and signs involving the circulatory and respiratory systems CPT copyright 2021 [employer]. All rights reserved. The codes documented in this report are preliminary and upon patrol inspector review may be revised to meet current compliance requirements. DO Brayden Velázquez MD 12/05/2024 11:57:59 AM This report has been signed electronically. Number of Addenda: 0 Note Initiated On: 12/05/2024 10:39 AM
--- NOTE | 2024-12-05 12:05 | PCM.POST.ANE ---
Anesthesia: Postop Eval I Current Vital Signs Temperature: 97.7 F Pulse Rate: 85 Blood Pressure: 152/83 Respiratory Rate: 14 Pulse Ox: 92 Oxygen Delivery Method: Simple Mask Oxygen Flow Rate (L/min): 6 Assessment Airway patent: Yes Spontaneous unlabored respirations: Yes Mental status: Asleep nausea: No Vomiting: No Anesthesia Complication: No Fluid Hydration Crystalloid volume administer (ml): 500 Total IV fluid infused: 500 Progress Note Anesthesia document: Postop Eval 1 completed: Yes
--- NOTE | 2024-12-05 15:33 | POSTOPAN2_ITS ---
Anesthesia Postop Eval I Sum Postop Eval Completion status Anesthesia document: Postop Eval 1 completed: Yes Anesthesia Postop Eval I Summary Anesthesia Postop Eval I Summary: Anesthesia Postop Eval I: Assessment Summary Airway patent Yes 12/05/24 12:06 [email or web address] Spontaneous unlabored Yes 12/05/24 12:06 [email or web address] respirations Mental status Asleep 12/05/24 12:06 [email or web address] nausea No 12/05/24 12:06 MANAGER [email or web address] Vomiting No 12/05/24 12:06 [email or web address] Anesthesia Postop Eval I: Fluid Summary Crystalloid volume administer 500 12/05/24 12:06 [email or web address] (ml) Colloids volume administered ( ml) Blood Product volume administered (ml) Total IV fluid infused 500 12/05/24 12:06 [email or web address] Anesthesia Postop Eval I: Summary Notes Anesthesia Complication No 12/05/24 12:06 [email or web address] Anesthesia Complication Comment: Post-operative progress note Anesthesia: Postop Eval II Evaluation Mental status: Awake and Calm Pain Level: 1 nausea: No Vomiting: No Complications Anesthesia Complication: No
--- NOTE | 2024-12-05 15:33 | PCM.POSTANE2 ---
Anesthesia Postop Eval I Sum Postop Eval Completion status Anesthesia document: Postop Eval 1 completed: Yes Anesthesia Postop Eval I Summary Anesthesia Postop Eval I Summary: Anesthesia Postop Eval I: Assessment Summary Airway patent Yes 12/05/24 12:06 [email or web address] Spontaneous unlabored Yes 12/05/24 12:06 [email or web address] [email or web address] respirations Mental status Asleep 12/05/24 12:06 [email or web address] nausea No 12/05/24 12:06 [email or web address] Vomiting No 12/05/24 12:06 [email or web address] Anesthesia Postop Eval I: Fluid Summary Crystalloid volume administer 500 12/05/24 12:06 [email or web address] (ml) Colloids volume administered ( ml) Blood Product volume administered (ml) Total IV fluid infused 500 12/05/24 12:06 [email or web address] Anesthesia Postop Eval I: Summary Notes Anesthesia Complication No 12/05/24 12:06 [email or web address] Anesthesia Complication Comment: Post-operative progress note Anesthesia: Postop Eval II Evaluation Mental status: Awake and Calm Pain Level: 1 nausea: No Vomiting: No Complications Anesthesia Complication: No
== END 2024-12-05 13:37 | disposition home or self-care (01) ==
LOC: EN 09:39 → AC 09:40
PROVIDERS: PCP Family Medicine; Referring Provider Internal Medicine Critical Care Medicine; Visit Provider Internal Medicine Critical Care Medicine
PROC: BB4BZZZ Ultrasonography of Pleura (ICD-10-PCS; CPT 31653; principal; 2024-12-05 10:30)
DX: C34.01 Malignant neoplasm of right main bronchus (principal); N18.2 Chronic kidney disease, stage 2 (mild); F17.210 Nicotine dependence, cigarettes, uncomplicated; E03.9 Hypothyroidism, unspecified; Z79.890 Hormone replacement therapy; Z79.01 Long term (current) use of anticoagulants; Z79.899 Other long term (current) drug therapy
CPT/HCPCS: 31653; 00520; 88161; 88172; 88305; 88313; 88341; 88342; J2405

== ENCOUNTER → 2024-12-26 | Outpatient (CLI) | payer BC, SELFPAY ==
--- NOTE | 2024-12-26 09:36 | MRI_ITS ---
PROCEDURE: BRAIN W/WO CONTRAST 12/26/2024 REASON FOR EXAM: SMALL CELL LUNG CANCER STAGING TECHNIQUE: Procedure Code: [id number] Modality: MR Procedure: BRAIN W/WO CONTRAST Multiplanar and multisequence images were obtained. CONTRAST: Clariscan VOLUME: 19 mL COMPARISON: None FINDINGS: Brain: T2 prolongation is shown in the periventricular white matter. Patchy T2 prolongation in the deep white matter and to a lesser extent the subcortical white matter. No enhancing solid mass. Diffusion: No restricted diffusion to suggest acute ischemia. Ventricles: No hydrocephalus. Major Intracranial Vessels: Flow voids appear unremarkable Sinuses: Clear Mastoids: Bilateral mastoid effusions. MRI/Brain W/WO Contrast IMPRESSION: 1. No evidence of acute ischemia. 2. Chronic microvascular ischemic changes. 3. No enhancing mass seen. 4. Bilateral mastoid effusions. Reading Location: [id number]
== END | disposition home or self-care (01) ==
LOC: MRI 09:32
PROVIDERS: PCP Family Medicine; Referring Provider Student in an Organized Health Care Education/Training Program; Visit Provider Student in an Organized Health Care Education/Training Program
DX: C34.90 Malignant neoplasm of unspecified part of unspecified bronchus or lung (principal)
CPT/HCPCS: 70553; A9575; A4216

== ENCOUNTER 2025-01-12 05:50 | Day surgery (SDC) | payer BC, SELFPAY ==
--- NOTE | 2025-01-08 16:03 | PAT.ANESEVAL ---
Pre-Assessment Diagnosis/Proposed Procedure Planned Operative Procedure(s): INSERTIONRIGHT POSS LEFT JUGULAR PORT Anesthesia History Anesthesia History - freedom of information officer: Anesthesia History - freedom of information officer Hx Hospitalization Yes: INFLAMMATION -FOUND 01/08/25 14:04 LUNG MASS Any Problems With Anesthesia No 01/08/25 14:04 Cholinesterase deficiency No 01/08/25 14:04 You/Your Family Experience No 01/08/25 14:04 fever (hyperthermia) with Relationship Recent Exposure to Contagious No 12/18/24 11:44 Disease Does patient have nerve No 01/08/25 14:04 stimulator Patient instructed to have device shut off --Does patient have Pacemaker or ICD? When Was Last Pacemaker Check QUESTION #4 FULL TEXT: You/Your Family Experience fever (hyperthermia) with Anesthesia Last Oral Intake Last Oral intake: Last Oral Intake NPO since Meds taken in AM with sips of water? 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 - freedom of information officer: PONV - freedom of information officer Female Yes 01/08/25 14:04 HX of Motion Sickness No 01/08/25 14:04 HX of N/V After Surgery No 01/08/25 14:04 Non-Smoker Yes 01/08/25 14:04 Duration of Surgery greater No 01/08/25 14:04 than 60 minutes Number of Risk Factors 2 01/08/25 14:04 PONV Score Moderate Risk 01/08/25 14:04 Height & Weight Height & Weight: Anesthesia: Height & Weight Height 5 ft 3 in 01/07/25 09:26 Respiratory Assessment Respiratory Assessment - freedom of information officer: Respiratory Tract Infection Hx - freedom of information officer Hx Respiratory Tract Infection No 01/08/25 14:04 STOP Sleep Apnea STOP Sleep Apnea - freedom of information officer: STOP Sleep Apnea - freedom of information officer Hx Hypertension No 01/08/25 14:04 Hx Sleep Apnea No 01/08/25 14:04 CPAP BIPAP Do you snore loudly (louder No 01/08/25 14:04 than talking or can be heard Do you often feel tired/ No 01/08/25 14:04 fatigued/ sleepy during daytime? Has anyone observed you stop No 01/08/25 14:04 breathing during sleep? STOP Results Negative 01/08/25 14:04 QUESTION #5 FULL TEXT : Do you snore loudly (louder than talking or can be heard through closed doors)? Tobacco Use History Tobacco Use History - freedom of information officer: Tobacco Use History - freedom of information officer Tobacco Use Smoking Status Former smoker 01/08/25 14:04 Hx Tobacco Use Yes 01/08/25 14:04 Years Smoking Packs Smoked per Day Smoking Cessation Date was Yes - quit smoking within 15 01/08/25 14:04 within the last 15 years years Hx Smoking Cessation Date 11/27/24 01/08/25 14:04 Hx Smoking Cessation Counseling Hematologic Medial History Hematologic Hx - freedom of information officer: Hematologic Medical Hx - rn clinical documentation Hx of Blood Transfusion No 01/08/25 14:04 Hx of Transfusion in last 3 No 01/08/25 14:04 Months Date of Last Transfusion (if within last 3 months) Ever experience any problems No 01/08/25 14:04 with transfusion(s)? 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 confused, unrespo /Reproduction History /Reproductive History - freedom of information officer: /Reproductive Hx- freedom of information officer Hx Now No 01/08/25 14:04 Gestational Age (in weeks): EDC: Hx Hx Para Hx Section SAB No 01/08/25 14:04 Active Medications Active Medications: Current Medications Generic Name Dose Route Start Last Admin Trade Name Freq PRN Reason Stop Dose Admin Cefazolin Sodium 2 gm/ Sodium 110 mls @ 200 mls/hr 01/09/25 08:00 Chloride IV 01/09/25 08:32 INTRAOP ONE [facility] Medical History (Updated 01/08/25 @ 14:44 by Maura Chaudhary) Pulmonary embolism Shortness of breath on exertion History of echocardiogram Cancer Anxiety Former smoker Encounter for education Wears glasses Post-menopausal Thyroid disease Easy bruising Leg cramps Difficulty chewing Wears dentures On home oxygen therapy Hoarseness History of edema History of trigger finger Obesity Home Medications ?Medication ?Instructions ?Recorded ?Last Taken ?Type apixaban 5 mg tablet 5 mg PO BID #90 tabs 12/01/24 12/02/24 Rx furosemide 40 mg tablet (Lasix) 40 mg PO DAILY #30 tabs 12/01/24 12/04/24 Rx levothyroxine 100 mcg tablet 200 mcg (2 x 100 mcg) PO 12/01/24 12/05/24 Rx DAILY@0600 #60 tabs lidocaine-prilocaine 2.5 %-2.5 % 1 applic topical ONCE PRN port 01/07/25 Unknown Rx topical cream access 30 days #30 grams ondansetron 8 mg disintegrating 8 mg PO Q8H PRN nausea and 01/07/25 Unknown Rx tablet vomiting #30 tabs prochlorperazine maleate 10 mg 10 mg PO Q6H PRN nausea and 01/07/25 Unknown Rx tablet vomiting #30 tabs ascorbic acid (vitamin C) 500 mg 500 mg PO DAILY 01/08/25 Unknown History tablet,extended release (C-500) cholecalciferol (vitamin D3) 25 25 mcg PO DAILY 01/08/25 Unknown History mcg (1,000 unit) capsule (Vitamin D3) turmeric 400 mg capsule 400 mg PO DAILY 01/08/25 Unknown History zinc 50 mg tablet 50 mg PO DAILY 01/08/25 Unknown History Allergy/AdvReac Type Severity Reaction Status Date / Time hydrocodone (From Vicodin) AdvReac Vomiting Verified 01/08/25 14:46 Family History Mother Heart disease Diabetes Seizures Father Heart disease CAD (coronary artery disease) Hypertension Myocardial infarction Surgical History (Updated 01/08/25 @ 14:10 by Isamar Roman) History of bronchoscopy History of surgery on wrist History of elbow surgery H/O rotator cuff surgery H/O spinal fusion Social History household members: spouse Smoking Status: Former smoker quit date: 11/28/24 alcohol intake: current alcohol intake frequency: holidays/special occasions only substance use type: does not use Audit: Pertinent Findings Pertinent Findings EKG Perinent findings: September 19, 2018. Sinus rhythm with PACs. Echo (EF%) pertinent findings: November 29, 2024. EF is 70%. PASP is 24 mmHg. No aortic stenosis noted. Additional pertinent findings: December 01, 2024. TSH is 36.6?elevated Recommendation Anesthesia Recommendation Anesthesia recommendation: F/U recommended (Patient seems to be subtherapeutic on her levothyroxine. TSH is 36.6. Patient needs to have levothyroxine adjusted.)
--- NOTE | 2025-01-09 14:41 | PAT.ANESEVAL ---
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 When Was Last Pacemaker Check QUESTION #4 FULL TEXT: You/Your Family Experience fever (hyperthermia) with Anesthesia Last Oral Intake Last Oral intake: Last Oral Intake NPO since Meds taken in AM with sips of water? 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 Has anyone observed you stop No 01/08/25 14:04 breathing during sleep? STOP Results Negative 01/08/25 14:04 QUESTION #5 FULL TEXT : Do you snore loudly (louder than talking or can be heard through closed doors)? 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: /Reproductive Hx- oil well gun perforator operator Hx Now No 01/08/25 14:04 Gestational Age (in weeks): EDC: Hx Hx Para Hx Section SAB No 01/08/25 14:04 Active Medications Active Medications: Current Medications Generic Name Dose Route Start Last Admin Trade Name Freq PRN Reason Stop Dose Admin Cefazolin Sodium 2 gm/ Sodium 110 mls @ 200 mls/hr 01/12/25 07:30 Chloride IV 01/12/25 08:02 INTRAOP ONE [facility] Medical History (Updated 01/08/25 @ 14:44 by Maura Chaudhary) Pulmonary embolism Shortness of breath on exertion History of echocardiogram Cancer Anxiety Former smoker Encounter for education Wears glasses Post-menopausal Thyroid disease Easy bruising Leg cramps Difficulty chewing Wears dentures On home oxygen therapy Hoarseness History of edema History of trigger finger Obesity Home Medications ?Medication ?Instructions ?Recorded ?Last Taken ?Type apixaban 5 mg tablet 5 mg PO BID #90 tabs 12/01/24 12/02/24 Rx furosemide 40 mg tablet (Lasix) 40 mg PO DAILY #30 tabs 12/01/24 12/04/24 Rx levothyroxine 100 mcg tablet 200 mcg (2 x 100 mcg) PO 12/01/24 12/05/24 Rx DAILY@0600 #60 tabs lidocaine-prilocaine 2.5 %-2.5 % 1 applic topical ONCE PRN port 01/07/25 Unknown Rx topical cream access 30 days #30 grams ondansetron 8 mg disintegrating 8 mg PO Q8H PRN nausea and 01/07/25 Unknown Rx tablet vomiting #30 tabs prochlorperazine maleate 10 mg 10 mg PO Q6H PRN nausea and 01/07/25 Unknown Rx tablet vomiting #30 tabs ascorbic acid (vitamin C) 500 mg 500 mg PO DAILY 01/08/25 Unknown History tablet,extended release (C-500) cholecalciferol (vitamin D3) 25 25 mcg PO DAILY 01/08/25 Unknown History mcg (1,000 unit) capsule (Vitamin D3) turmeric 400 mg capsule 400 mg PO DAILY 01/08/25 Unknown History zinc 50 mg tablet 50 mg PO DAILY 01/08/25 Unknown History Allergy/AdvReac Type Severity Reaction Status Date / Time hydrocodone (From Vicodin) AdvReac Vomiting Verified 01/08/25 14:46 Family History Mother Heart disease Diabetes Seizures Father Heart disease CAD (coronary artery disease) Hypertension Myocardial infarction Surgical History (Updated 01/08/25 @ 14:10 by Isamar Roman) History of bronchoscopy History of surgery on wrist History of elbow surgery H/O rotator cuff surgery H/O spinal fusion Social History household members: spouse Smoking Status: Former smoker quit date: 11/28/24 alcohol intake: current alcohol intake frequency: holidays/special occasions only substance use type: does not use Audit: Pertinent Findings HISTORY of Pertinent Findings History of Pertinent Findings: EKG Pertinent Findings EKG Perinent findings September 19, 2018. Sinus rhythm 01/08/25 16:10 with PACs. Echo Pertinent Findings Echo (EF%) pertinent findings November 29, 2024. EF is 01/08/25 16:05 70%. PASP is 24 mmHg. No aortic stenosis noted. Additional Pertinent Findings Additional pertinent findings December 01, 2024. TSH is 01/08/25 16:14 36.6?elevated Pertinent Findings Additional pertinent findings: 01/09/2025. TSH level on outside lab. 0.725 which is normal range. Recommendation Anesthesia Recommendation Anesthesia recommendation: OPTIMIZED for anesthesia
[2025-01-12] VITALS (8 sets, daily range): BP systolic 131–153; BP diastolic 63–95; PULSE 91–96; RESP 16–22; TEMP 36.1–36.7; O2SAT 92–100; BMI 34.0
[2025-01-12] MEDS: Lactated Ringers 1,000 ML 15 ML IV (06:35)
--- NOTE | 2025-01-12 06:41 | PCM.PRE.AN2 ---
ASA Classification* ASA Classification ASA Classification: 3 Assessment & Plan Anesthesia* Anesthesia Assessment Anesthesia Assessment: Discussed sedation and/or anesthesia options, risks, benefits, and alternatives with patient/parents/legal guardian/POA. Questions invited. The patient/parents/legal guardian/POA seems to understand and agrees to proceed with anesthesia plan. Reviewed the physical assessment, medical history, allergy history and patient home medications list prior to surgery/procedure/anesthetic and documented any changes. Performed airway and anesthesia risk assessments. Anesthesia Type Anesthesia Type: MAC Anesthesia Focused Assessment* Temperature: 98.1 F Pulse Rate: 95 Blood Pressure: 131/63 Respiratory Rate: 18 Pulse Ox: 94 Airway Assessment Mouth opens: >3 cm Mallampati Score: II Labs Anesthesia Preop lab: CBC WBC, (4.4-11.0) 5.0 K/mm3 12/01/24, 05:18 RBC, (4.2-5.4) 3.63 M/mm3 L 12/01/24, 05:18 Hgb, (12.0-15.0) 11.1 g/dL L 12/01/24, 05:18 Hct, (37-47) 33.6 % L 12/01/24, 05:18 Plt Count, (150-450) 189 K/mm3 12/01/24, 05:18 CHEMISTRY Potassium, (3.3-5.1) 3.5 mmol/L 12/01/24, 05:18 Sodium, (133-145) 133 mmol/L 12/01/24, 05:18 Magnesium, (1.5-2.2) 2.0 mg/dL 11/28/24, 19:45 Phosphorus, (2.7-4.5) 3.8 mg/dL 11/28/24, 19:45 BUN, (4-19) 12 mg/dL 12/01/24, 05:18 Creatinine, (0.70-1.20) 0.66 mg/dL L 12/01/24, 05:18 Glucose, (70-99) 90 mg/dL 12/01/24, 05:18 TSH, (0.300-4.200) 36.600 uIU/mL H 12/01/24, 05:18 COAG PT, (11.7-14.9) 14.9 SECONDS 11/29/24, Unknown Pre-Assessment Diagnosis/Proposed Procedure Planned Operative Procedure(s): INSERTIONRIGHT POSS LEFT JUGULAR PORT Anesthesia History 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 When Was Last Pacemaker Check QUESTION #4 FULL TEXT: You/Your Family Experience fever (hyperthermia) with Anesthesia Last Oral Intake Last Oral intake: Last Oral Intake NPO since 16:00 01/12/25 06:20 Meds taken in AM with sips of Yes 01/12/25 06:20 water? Meds patient instructed to see med list 01/12/25 06:20 take am of surgery PONV PONV - journalism professor: PONV - journalism professor Female Yes 01/08/25 14:04 HX of Motion Sickness No 01/08/25 14:04 HX of N/V After Surgery No 01/08/25 14:04 Non-Smoker Yes 01/08/25 14:04 Duration of Surgery greater No 01/08/25 14:04 than 60 minutes Number of Risk Factors 2 01/08/25 14:04 PONV Score Moderate Risk 01/08/25 14:04 Height & Weight Height & Weight: Anesthesia: Height & Weight Height 5 ft 3 in 01/12/25 06:20 Weight: 87 kg 01/12/25 06:20 Body Mass Index (BMI) 34.0 01/12/25 06:20 Respiratory Assessment Respiratory Assessment - journalism professor: Respiratory Tract Infection Hx - journalism professor Hx Respiratory Tract Infection No 01/08/25 14:04 STOP Sleep Apnea STOP Sleep Apnea - journalism professor: STOP Sleep Apnea - journalism professor Hx Hypertension No 01/08/25 14:04 Hx Sleep Apnea No 01/08/25 14:04 CPAP BIPAP Do you snore loudly (louder No 01/08/25 14:04 than talking or can be heard Do you often feel tired/ No 01/08/25 14:04 fatigued/ sleepy during daytime? Has anyone observed you stop No 01/08/25 14:04 breathing during sleep? STOP Results Negative 01/08/25 14:04 QUESTION #5 FULL TEXT : Do you snore loudly (louder than talking or can be heard through closed doors)? 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 confused, unrespo /Reproduction History /Reproductive History - journalism professor: /Reproductive Hx- journalism professor Hx Now No 01/08/25 14:04 Gestational Age (in weeks): EDC: Hx Hx Para Hx Section SAB No 01/08/25 14:04 Active Medications Active Medications: Current Medications Generic Name Dose Route Start Last Admin Trade Name Freq PRN Reason Stop Dose Admin Cefazolin Sodium 2 gm/ Sodium 110 mls @ 200 mls/hr 01/12/25 07:30 Chloride IV 01/12/25 08:02 INTRAOP ONE Lactated Ringer's 1,000 mls @ 15 mls/hr 01/12/25 06:00 01/12/25 06:35 IV 15 mls/hr .Q48H MAUREEN Administration PFSH Medical History Pulmonary embolism Shortness of breath on exertion History of echocardiogram Cancer Anxiety Former smoker Encounter for education Wears glasses Post-menopausal Thyroid disease Easy bruising Leg cramps Difficulty chewing Wears dentures On home oxygen therapy Hoarseness History of edema History of trigger finger Obesity Home Medications ?Medication ?Instructions ?Recorded ?Last Taken ?Type apixaban 5 mg tablet 5 mg PO BID #90 tabs 12/01/24 01/07/25 Rx furosemide 40 mg tablet (Lasix) 40 mg PO DAILY #30 tabs 12/01/24 12/04/24 Rx levothyroxine 100 mcg tablet 200 mcg (2 x 100 mcg) PO 12/01/24 01/12/25 04:30 Rx DAILY@0600 #60 tabs lidocaine-prilocaine 2.5 %-2.5 % 1 applic topical ONCE PRN port 01/07/25 Unknown Rx topical cream access 30 days #30 grams ondansetron 8 mg disintegrating 8 mg PO Q8H PRN nausea and 01/07/25 Unknown Rx tablet vomiting #30 tabs prochlorperazine maleate 10 mg 10 mg PO Q6H PRN nausea and 01/07/25 Unknown Rx tablet vomiting #30 tabs ascorbic acid (vitamin C) 500 mg 500 mg PO DAILY 01/08/25 Unknown History tablet,extended release (C-500) cholecalciferol (vitamin D3) 25 25 mcg PO DAILY 01/08/25 Unknown History mcg (1,000 unit) capsule (Vitamin D3) turmeric 400 mg capsule 400 mg PO DAILY 01/08/25 01/07/25 History zinc 50 mg tablet 50 mg PO DAILY 01/08/25 01/07/25 History Allergy/AdvReac Type Severity Reaction Status Date / Time hydrocodone (From Vicodin) AdvReac Vomiting Verified 01/12/25 06:18 Family History Mother Heart disease Diabetes Seizures Father Heart disease CAD (coronary artery disease) Hypertension Myocardial infarction Surgical History History of bronchoscopy History of surgery on wrist History of elbow surgery H/O rotator cuff surgery H/O spinal fusion Social History household members: spouse Smoking Status: Former smoker quit date: 11/28/24 alcohol intake: current alcohol intake frequency: holidays/special occasions only substance use type: does not use Review of Systems (Anesthesia) ROS Narrative System reviewed and no additional complaints, except as documented.
--- NOTE | 2025-01-12 07:20 | HP.PCM_ITS ---
History and Physical
--- NOTE | 2025-01-12 07:20 | PCM.HP.BLA ---
History and Physical Date of Admission: 01/12/25 Date of Service: 01/08/25 MR#: [id number] Acct: [id number] Name: MASON BENJAMIN Rep #: [id number] : 1960 Provider: Dr. Susanna Butt MD Age/Sex: 64/F Location: [facility] Status: Signed Intake Vital Signs 12/25/2508:22 01/07/2509:26 01/08/2514:45 Height 5 ft 3 in 5 ft 3 in 5 ft 3 in Weight: 190 lb 6 oz 191 lb BMI 33.7 33.8 BP 142/78 H 155/82 H Blood Pressure Location Lt brachial Rt brachial Position Sitting Sitting Respiration 18 20 H Pulse 79 80 Pulse Source Monitor Monitor Temp 97.3 F L Pulse Oximetry (%) 96 88 Oxygen Delivery Method room air room air Intake Visit Reasons: PORT PLACEMENT Chief Complaint: port placement Is patient in pain?: No Allergies hydrocodone (From Vicodin) Adverse Reaction (Verified 01/08/25 14:46) Vomiting Medications ?Medication ?Instructions ?Recorded ?Confirmed ?Type apixaban 5 mg tablet 5 mg PO BID #90 tabs 12/01/24 01/08/25 Rx furosemide 40 mg tablet (Lasix) 40 mg PO DAILY #30 tabs 12/01/24 01/08/25 Rx levothyroxine 100 mcg tablet 200 mcg (2 x 100 mcg) PO 12/01/24 01/08/25 Rx DAILY@0600 #60 tabs lidocaine-prilocaine 2.5 %-2.5 % 1 applic topical ONCE PRN port 01/07/25 01/08/25 Rx topical cream access 30 days #30 grams ondansetron 8 mg disintegrating 8 mg PO Q8H PRN nausea and 01/07/25 01/08/25 Rx tablet vomiting #30 tabs prochlorperazine maleate 10 mg 10 mg PO Q6H PRN nausea and 01/07/25 01/08/25 Rx tablet vomiting #30 tabs ascorbic acid (vitamin C) 500 mg 500 mg PO DAILY 01/08/25 01/08/25 History tablet,extended release (C-500) cholecalciferol (vitamin D3) 25 25 mcg PO DAILY 01/08/25 01/08/25 History mcg (1,000 unit) capsule (Vitamin D3) turmeric 400 mg capsule 400 mg PO DAILY 01/08/25 01/08/25 History zinc 50 mg tablet 50 mg PO DAILY 01/08/25 01/08/25 History Have you fallen in the past year?: No PFSH Medical History (Updated 01/08/25 @ 14:44 by Maura Chaudhary) Pulmonary embolism Shortness of breath on exertion History of echocardiogram Cancer Anxiety Former smoker Encounter for education Wears glasses Post-menopausal Thyroid disease Easy bruising Leg cramps Difficulty chewing Wears dentures On home oxygen therapy Hoarseness History of edema History of trigger finger Obesity Surgical History (Updated 01/08/25 @ 14:10 by Isamar Roman) History of bronchoscopy History of surgery on wrist History of elbow surgery H/O rotator cuff surgery H/O spinal fusion Family History Mother Heart disease Diabetes Seizures Father Heart disease CAD (coronary artery disease) Hypertension Myocardial infarction Social History household members: spouse Smoking Status: Former smoker quit date: 11/28/24 alcohol intake: current alcohol intake frequency: holidays/special occasions only substance use type: does not use HPI HPI HPI: 64-year-old female presents for port placement due to small cell lung cancer. Planning to start treatment early next week. Patient is on Eliquis and did take this morning. ROS General General: Yes weight change (loss) and fatigue; No appetite, colon cancer, breast cancer or weakness HEENT HEENT: No difficulty swallowing, eye injury, eye surgery, swollen glands or hoarseness Endo Endocrine: Yes thyroid disease; No diabetes mellitus, thyroid cancer, Hair loss, heat intolerance or cold intolerance Skin Skin: No rash or changing moles Musc Musculoskeletal: No back problems, arthritis, rheumatoid arthritis, gout or joint pain Cardio Cardiovascular: No murmur, pacemaker, heart disease, atrial fibrillation, high blood pressure, heart attack, heart stent, palpitations, shortness of breath with exertion or chest pain Psych Psychiatric: Yes anxiety; No depression or hearing voices Resp Respiratory: Yes shortness of breath, No sleep apnea, Yes cough, No COPD, No asthma, No emphysema and No wheezing Gastro Gastrointestinal: No abdominal pain, No nausea or vomiting, No diarrhea, No constipation, No blood in stool, No acid reflux, No hemorrhoids, No ulcers, No gallbladder problem and No black,tarry stools Javier Hematologic: Yes blood thinners, No blood disorders, No bleeding, No anemia and Yes blood clots Neuro Neurologic: No system reviewed and no additional complaints, except as documented, No as per HPI, No abnormal gait, No abnormal hearing, No abnormal movements, No abnormal speech, No behavioral changes, No burning sensations, No confusion, No convulsions, No disequilibrium, No dizziness, No localized weakness, No frequent falls, No headache(s), No lack of coordination, No loss of vision, No memory loss, Yes numbness, No other visual disturbances, No radicular pain, No restless legs, No sensory deficit, No syncope, Yes tingling, No tremor(s), No weakness and No other Exam Const General: cooperative, comfortable and no acute distress HENMT Head: normocephalic and atraumatic Neck Neck: supple Chest Other: Palpation of bilateral upper chest normal Resp Effort & Inspection: normal respiratory effort Cardio Rate: regular rate GI Inspection: non-distended Palpation: soft, no hernias and nontender Skin General: no rashes or lesions noted Neuro General: CN's II-XI intact bilaterally Extrem General: normal to inspection Psych Mental Status: mental status grossly normal Attitude: cooperative Assessment and Plan Assessment and Plan (1) Encounter for insertion of venous access port: Status: Acute (2) Small cell lung cancer: Status: Chronic Qualifiers: Laterality: right Lung location: overlapping sites Qualified Code(s): C34.81 - Malignant neoplasm of overlapping sites of right bronchus and lung Comment: Small cell lung cancer right with mediastinal and subcarinal involvement?limited disease. Plan I have discussed above with the patient- Port-a-Cath placement. Right IJ possible left?patient was initially scheduled for 01/09 however unaware of the Eliquis at the time patient will hold Eliquis until port placement. Will reschedule patient for Sunday, January 12 and she will plan to start treatment on January 13. Will leave patient accessed. Patient has been counseled as to the risks/benefits of the procedure. I have explained the risks of the surgery, including but not limited to: infection, bleeding, injury to any blood vessels/nerves, injury to lungs (such as pneumothorax or hemothorax and need for chest tube), not having any access, nonfunctioning of port due to thrombosis, infection of port, etc. the patient understands and agrees to proceed. I have answered all the patient's questions to the patient?s satisfaction and the patient has no further questions. Susanna Butt M.D. Pager: [phone] [facility] [address] [place] [address], [facility], [address] [place] [address] Office: [phone] Coding Level of Care Code Off vis,new,level 3 Diagnoses Encounter for insertion of venous access port Z45.2 Small cell carcinoma of overlapping sites of right lung C34.81 Laterality: right Lung location: overlapping sites Clinical Quality Measures Falls Risk Screening/Assistive Devices Have you fallen in the past year?: No 01/09/25 1508 <Electronically signed by Susanna Butt MD> Date Susanna Butt MD
[2025-01-12] MEDS: Cefazolin 1 GM/5 ML Vial 2 GM IV (07:30)
[2025-01-12] MEDS: Midazolam 2 MG/2 ML Syringe IV (07:32)
[2025-01-12] MEDS: Lidocaine 1% (5 ml sdv) 5 ML Vial 4 ML IV (07:35)
[2025-01-12] MEDS: Lidocaine 1% /Epi 1:100 (20ml) 20 ML Vial (07:58)
--- NOTE | 2025-01-12 08:37 | OP.PCM_ITS ---
Operative Report (Standard)
--- NOTE | 2025-01-12 08:37 | DCINST_ITS ---
Discharge Instructions
--- NOTE | 2025-01-12 08:37 | PCM.OPRPT ---
Operative Report (Standard) Operative Information Date of Procedure: 01/12/25 Pre-Operative Diagnosis: z45.2, small cell lung cancer Post-Operative Diagnosis: Same Surgery/Procedure Performed: Placement of right IJ Port-A-Cath Use of ultrasound Use of fluoroscopy hospitalist medical director: No Type of Anesthesia: Local MAC RN Documented Start/Stop Times: Operation Date: 01/12/25 07:30 Case Time Into Pre-Op 01/12/25 05:59 Out of Pre-Op 01/12/25 07:27 Anesthesia Start 01/12/25 07:30 Into Room 01/12/25 07:30 Procedure Start 01/12/25 07:48 Anesthesia End 01/12/25 08:40 Out of Room 01/12/25 08:40 Procedure End 01/12/25 08:40 Into Recovery 01/12/25 08:44 Out of Recovery 01/12/25 09:15 Into Phase II Recovery 01/12/25 09:16 Out of Phase II 01/12/25 10:07 Procedure Start Time: 07:48 Procedure Stop Time: 08:40 Select all DRAINS/GRAFTS/IMPLANTS that apply: Prosthetic device Prosthetic device details: [employer] PowerPort isp M.R.I. 6Fr Lot [id number] Special Medications: Ancef 2 g IV x 1 Estimated Blood Loss: <10 cc Specimen collected: No Description of surgery: After informed consent was given, the patient was brought to the operating room and placed in the supine position. Appropriate time out protocol was followed. Patient was then given IV conscious sedation for anesthesia. The patient's right upper chest and neck were then prepped with a surgical skin preparation and sterile surgical drapes were placed. After proper landmarks were ascertained, the skin at the upper right chest area was then infiltrated with 1:1 mixture of 1% lidocaine with epinephrine and 0.5% marcaine. A needle trocar was then inserted into the right internal jugular vein with ultrasound guidance-multiple vessels were viewed with u/s and the right IJ was chosen-- and there was good aspiration of venous blood. 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 Once this was done, then the needle trocar was removed. A small skin jennifer was made with an 11 blade knife at the wire entrance site. The dilator with the introducer sheath attached was then placed over the wire into the right internal jugular vein via the Seldinger technique and this was visualized under fluoroscopy. The dilator and sheath were in proper position as visualized by fluoroscopy. A subcutaneous pocket was then created caudad to the catheter insertion site. A transverse skin incision was made after the skin and subcutaneous tissues were infiltrated with local anesthetic. Blunt dissection was then used to create a space large enough for placement of the subcutaneous port. The catheter was then tunneled into the subcutaneous pocket. The wire and dilator were then removed. The catheter was then threaded into the introducer sheath and was positioned with its tip at the junction of the superior vena cava and the right atrium as visualized under fluoroscopy. The excess catheter was transected. The catheter was then attached to the subcutaneous port using manufacturers guidelines. The catheter was flushed with a heparin saline mixture prior to placement. Hemostasis was carefully controlled with electrocautery. The port was sutured to the subcutaneous fascia using 2-0 Vicryl suture at two sites. The port was then placed in the subcutaneous pocket. The incision were reapproximated with interrupted subdermal 3-0 vicryl sutures. The skin was reapproximated with 3-0 nylon suture in a interrupted fashion. Port was accessed using the kit provided?both ports flushed and sher well. Steristrips were used for reinforcement of the skin closure at IJ insertion site and a sterile opsite dressings were applied. The patient tolerated the procedure well. Surgical Findings: See operative report Complications Complications: No
--- NOTE | 2025-01-12 08:37 | EX.PCM.DISCH ---
Discharge Instructions Procedure Port-A-Cath Diet Discharge Diet: Light diet - advance as tolerated Activity May shower in (days): 5 (Keep port site clean and dry x5 days. Neck incision okay to get wet after 1 day. Okay to lower shower and upper sponge bath. OR okay to taper off port site with a Ziploc bag to shower) Lifting Restrictions: No lifting > 15 pounds for 3 days with the arm on the side of the port Dressing / Incision Call your doctor if your incision/area has: Continuous Slow Oozing, Sudden Increased Bleeding, Increased Pain/ Swelling, Increased Redness, Foul Smelling Discharge and Swelling at the incision site Call your doctor if you observe: Fever of 101 or Higher Change Dressing in: 2 days (2-3 days- port site; ok to remove neck opsite in 1 day) Follow Up Care Please Follow Up With: Susanna Butt MD When: In 10 days for permanent suture removal?call office for appointment Test Results: Test results from this visit will be discussed in further detail at your follow-up appointment, if applicable. Discharge Plan Admission Attending Provider: Susanna Butt Primary Care Provider: Gerry Brian Instructions Print Language: Divehi Discharge Orders/Prescriptions Prescriptions: New oxycodone 5 mg capsule 5 mg PO Q6H PRN (Reason: pain) 3 Days Qty: 5 0RF Continued ondansetron 8 mg tablet,disintegrating 8 mg PO Q8H PRN (Reason: nausea and vomiting) Qty: 30 2RF prochlorperazine maleate 10 mg tablet 10 mg PO Q6H PRN (Reason: nausea and vomiting) Qty: 30 2RF lidocaine-prilocaine 2.5-2.5 % cream 1 applic topical ONCE PRN (Reason: port access) 30 Days Qty: 30 2RF levothyroxine 100 mcg Tablet 200 mcg PO DAILY@0600 Qty: 60 0RF furosemide [Lasix] 40 mg tablet 40 mg PO DAILY Qty: 30 0RF cholecalciferol (vitamin D3) [Vitamin D3] 25 mcg (1,000 unit) capsule 25 mcg PO DAILY ascorbic acid (vitamin C) [C-500] 500 mg tablet extended release 500 mg PO DAILY zinc 50 mg tablet 50 mg PO DAILY turmeric 400 mg capsule 400 mg PO DAILY Held apixaban 5 mg tablet 5 mg PO BID Qty: 90 0RF Hold Instructions: Resume on 01/13/25. Rx Instructions: 2 tabs evening of 12/01, then 2 tabs twice daily 12/02, then hold, then 2 tabs twice daily for 7 days (after bronchoscopy), then 1 tab twice daily thereafter. Referrals / Follow Up: Gerry Brian MD [Primary Care Provider, Family Practice] Disposition Disposition (needs filled in before D/C Order can be placed): Home, Self Care
--- NOTE | 2025-01-12 08:49 | POSTOP.ANE_ITS ---
Anesthesia: Postop Eval I
--- NOTE | 2025-01-12 08:49 | PCM.POST.ANE ---
Anesthesia: Postop Eval I Current Vital Signs Temperature: 97.3 F Pulse Rate: 96 Blood Pressure: 153/92 Respiratory Rate: 22 Pulse Ox: 100 Oxygen Delivery Method: Nasal Cannula Oxygen Flow Rate (L/min): 3 Assessment Airway patent: Yes Spontaneous unlabored respirations: Yes Mental status: Awake and Calm nausea: No Vomiting: No Anesthesia Complication: No Fluid Hydration Crystalloid volume administer (ml): 400 Total IV fluid infused: 400 Progress Note Anesthesia document: Postop Eval 1 completed: Yes
--- NOTE | 2025-01-12 08:58 | RAD_ITS ---
PROCEDURE: RAD/Chest 1 View (Portable)
--- NOTE | 2025-01-12 09:50 | POSTOPAN2_ITS ---
Anesthesia Postop Eval I Sum
--- NOTE | 2025-01-12 09:50 | PCM.POSTANE2 ---
Anesthesia Postop Eval I Sum Postop Eval Completion status Anesthesia document: Postop Eval 1 completed: Yes Anesthesia Postop Eval I Summary Anesthesia Postop Eval I Summary: Anesthesia Postop Eval I: Assessment Summary Airway patent Yes 01/12/25 08:49 NURSE CASE MANAGEMENT.IGLESIAOBDayo Spontaneous unlabored Yes 01/12/25 08:49 NURSE CASE MANAGEMENT.MAYRA respirations Mental status Awake,Calm 01/12/25 08:49 NURSE CASE MANAGEMENT.MAYRA nausea No 01/12/25 08:49 NURSE CASE MANAGEMENT.MAYRA Vomiting No 01/12/25 08:49 NURSE CASE MANAGEMENT.MAYRA Anesthesia Postop Eval I: Fluid Summary Crystalloid volume administer 400 01/12/25 08:49 NURSE CASE MANAGEMENT.MAYRA (ml) Colloids volume administered ( ml) Blood Product volume administered (ml) Total IV fluid infused 400 01/12/25 08:49 NURSE CASE MANAGEMENT.MAYRA Anesthesia Postop Eval I: Summary Notes Anesthesia Complication No 01/12/25 08:49 NURSE CASE MANAGEMENTYENIFER Anesthesia Complication Comment: Post-operative progress note Anesthesia: Postop Eval II Evaluation Mental status: Awake Pain Level: 0 nausea: No Vomiting: No
== END 2025-01-12 10:07 | disposition home or self-care (01) ==
LOC: SDC 05:50 → AC 06:01
PROVIDERS: PCP Family Medicine; Referring Provider Surgery; Visit Provider Surgery
PROC: (CPT 36561; principal; 2025-01-12 07:15)
DX: Z45.2 Encounter for adjustment and management of vascular access device (principal); C34.81 Malignant neoplasm of overlapping sites of right bronchus and lung; Z87.891 Personal history of nicotine dependence; Z86.711 Personal history of pulmonary embolism; Z79.01 Long term (current) use of anticoagulants; Z79.890 Hormone replacement therapy; E07.9 Disorder of thyroid, unspecified
CPT/HCPCS: 36561; 00532; 71045; 77001; J2405

== ENCOUNTER 2025-02-12 08:58 | Emergency (ER) | payer BC, SELFPAY ==
[2025-02-12 08:59] VITALS: BP 172/96; PULSE 98; RESP 18; TEMP 36.6; O2SAT 99; BMI 31.3
--- NOTE | 2025-02-12 16:38 | EX.ED.DYSGE1 ---
HPI History of Present Illness Chief Complaint: Rash Narrative Narrative: Patient is a 64-year-old female presenting to the emergency department for a vaginal rash. Patient has a past medical history of small cell lung cancer, pulmonary emboli on current chemotherapy and radiation. Last radiation was the February 02 which she is now done with. Last chemotherapy was the , and 04 February. She states she follows with Dr. Ramos. She reports that for the past few weeks she has had irritation of her genital region. She reports that she has been trying to use Epsom salt baths to try to help with the symptoms. She denies any fever, chills, nausea or vomiting. Denies dysuria or hematuria. States that they called her oncologist office who recommended that she come to the emergency department to be evaluated. [facility] Medical History Pulmonary embolism Shortness of breath on exertion History of echocardiogram Cancer Anxiety Former smoker Encounter for education Wears glasses Post-menopausal Thyroid disease Easy bruising Leg cramps Difficulty chewing Wears dentures On home oxygen therapy Hoarseness History of edema History of trigger finger Obesity Home Medications ?Medication ?Instructions ?Recorded ?Last Taken ?Type furosemide 40 mg tablet (Lasix) 40 mg PO DAILY #30 tabs 12/01/24 12/04/24 Rx levothyroxine 100 mcg tablet 200 mcg (2 x 100 mcg) PO 12/01/24 01/12/25 04:30 Rx DAILY@0600 #60 tabs lidocaine-prilocaine 2.5 %-2.5 % 1 applic topical ONCE PRN port 01/07/25 Unknown Rx topical cream access 30 days #30 grams ondansetron 8 mg disintegrating 8 mg PO Q8H PRN nausea and 01/07/25 Unknown Rx tablet vomiting #30 tabs prochlorperazine maleate 10 mg 10 mg PO Q6H PRN nausea and 01/07/25 Unknown Rx tablet vomiting #30 tabs ascorbic acid (vitamin C) 500 mg 500 mg PO DAILY 01/08/25 Unknown History tablet,extended release (C-500) cholecalciferol (vitamin D3) 25 25 mcg PO DAILY 01/08/25 Unknown History mcg (1,000 unit) capsule (Vitamin D3) turmeric 400 mg capsule 400 mg PO DAILY 01/08/25 01/07/25 History zinc 50 mg tablet 50 mg PO DAILY 01/08/25 01/07/25 History oxycodone 5 mg capsule 5 mg PO Q6H PRN pain 3 days #5 caps 01/12/25 Unknown Rx apixaban 5 mg tablet 5 mg PO BID 01/13/25 Unknown History levofloxacin 500 mg tablet 500 mg PO Q24H 10 days #10 tabs 01/13/25 Unknown Rx MAGIC MOUTH WASH (BMX) 180 mL 15 ml PO .qid #300 mL 01/15/25 Unknown Rx suspension oxycodone 5 mg tablet 5 mg PO Q6H PRN pain 3 weeks #60 02/02/25 Unknown Rx tabs Allergy/AdvReac Type Severity Reaction Status Date / Time hydrocodone (From Vicodin) AdvReac Vomiting Verified 02/12/25 09:02 Family History Mother Heart disease Diabetes Seizures Father Heart disease CAD (coronary artery disease) Hypertension Myocardial infarction Surgical History History of bronchoscopy History of surgery on wrist History of elbow surgery H/O rotator cuff surgery H/O spinal fusion Social History household members: spouse Smoking Status: Former smoker quit date: 11/28/24 alcohol intake: current alcohol intake frequency: holidays/special occasions only substance use type: does not use ROS ROS ED ROS Narrative see HPI EXAM Physical Exam Narrative Exam Narrative: Vital signs: Reviewed General: Alert and orientedx3. No acute distress. Chronically ill appearing. HEENT: Head is normocephalic and atraumatic, sinuses nontender, pupils equal round and reactive. Nares are patent. Oropharynx and throat exams normal. Neck: Supple without lymphadenopathy nontender Cardiovascular: Regular rate and rhythm, no murmurs. No rubs or gallops. Normal S1 and S2 Respiratory: Clear to auscultation bilaterally. No wheezes, rales, rhonchi. On home nasal cannula. Abdominal: Soft and nontender. Normal bowel sounds. No guarding or rebound. Nonsurgical abdomen : Erythematous mildly edematous labia bilaterally. There is no discharge. No rash in the inguinal folds. Nontender to palpation. No evidence of abscess of the labia. No crepitus to palpation. Extremities: No tenderness. No bruising. Normal range of motion. Normal sensation. Skin: No rash or redness. The rest of the physical exam is unremarkable Const Vital Signs: 02/12/25 08:59 Temperature 98 F Temperature Source Oral Pulse Rate 98 Respiratory Rate 18 Blood Pressure 172/96 H Blood Pressure Mean 121 Pulse Ox 99 Oxygen Delivery Method Room Air MDM MDM MDM Narrative Medical decision making narrative: Patient is a 64-year-old female presenting to the emergency department for a vaginal rash. Patient was seen and examined. Vitals are stable. Patient resting in bed comfortably no acute distress. On physical exam there is evidence of irritation of the labia. There is no evidence of cellulitis, labial abscess, Bartholin cyst. No rash in the inguinal folds. Not consistent with a Lorraine infection. Patient is likely having irritation from her chemotherapy and radiation. Recommended a vaginal moisturizer over the counter. Recommended follow-up with her oncologist as soon as possible. Patient discharged from the Emergency Department. I do not feel that the patient's evaluation reveals any acute reason for admission at this time. I instructed them to either follow-up with their primary care physician or promptly return to the Emergency Department for reevaluation should symptoms worsen or new symptoms develop. I explained what symptoms would indicate the need to return to the emergency department. Shared decision making was used. The patient voiced understanding of the treatment plan and is agreeable with it. Clinical impression: Vaginal irritation History & Record Review Discussion w/independent historian: Patient and Significant other Additional record(s) reviewed:: Prior ED visit Discharge Plan Triage Chief Complaint: Rash ED Provider: Almita Prince Dx/Rx/DC Orders Clinical Impression: Vaginal irritation Instructions: Cancer Tx Vaginal Dryness Prescriptions: No Action ondansetron 8 mg tablet,disintegrating 8 mg PO Q8H PRN (Reason: nausea and vomiting) Qty: 30 2RF prochlorperazine maleate 10 mg tablet 10 mg PO Q6H PRN (Reason: nausea and vomiting) Qty: 30 2RF lidocaine-prilocaine 2.5-2.5 % cream 1 applic topical ONCE PRN (Reason: port access) 30 Days Qty: 30 2RF apixaban 5 mg tablet 5 mg PO BID levofloxacin 500 mg tablet 500 mg PO Q24H 10 Days Qty: 10 3RF Rx Instructions: To start on 01/17/2025 after chemotherapy. oxycodone 5 mg tablet 5 mg PO Q6H PRN (Reason: pain) 21 Days Qty: 60 0RF Rx Instructions: take one tab PO q 6 hours prn pain levothyroxine 100 mcg Tablet 200 mcg PO DAILY@0600 Qty: 60 0RF furosemide [Lasix] 40 mg tablet 40 mg PO DAILY Qty: 30 0RF cholecalciferol (vitamin D3) [Vitamin D3] 25 mcg (1,000 unit) capsule 25 mcg PO DAILY ascorbic acid (vitamin C) [C-500] 500 mg tablet extended release 500 mg PO DAILY zinc 50 mg tablet 50 mg PO DAILY turmeric 400 mg capsule 400 mg PO DAILY oxycodone 5 mg capsule 5 mg PO Q6H PRN (Reason: pain) 3 Days Qty: 5 0RF MAGIC MOUTH WASH (BMX) 180 mL suspension 15 ml PO .qid Qty: 300 3RF Rx Instructions: diphenhydramine 12.5 mg/5 mL oral liquid 60 mL; aluminum-mag hydroxide-simethicone 400 mg-400 mg-40 mg/5 mL oral susp 60 mL; Lidocaine Viscous 2 % mucosal solution 60 mL; Per 180 mL Primary Care Provider: Gerry Brian Referrals: Brady Ramos MD [Med Staff - Active Staff, Oncology] - As soon as possible Gerry Brian MD [Primary Care Provider, Family Practice] Activity Restrictions/Additional Instructions: Try the vaginal moisturizer we discussed. Use this 3 times daily. I would stop taking baths with the Epsom salts. The irritation does not appear infected at this time but it is something to look out for. Your evaluation in the Emergency Department did not reveal any acute reason for admission. However, I want to emphasize that you may be early in the course of a disease process or illness even if it is not present. For this reason you should follow-up within 24 hours for reevaluation with either your primary care physician or if necessary back here in the Emergency Department. You should return to the Emergency Department immediately if your symptoms worsen or new symptoms develop. Print Language: Kyrgyz Disposition Disposition: Home, Self Care Discharge Date/Time: 02/12/25 10:10
== END 2025-02-12 10:10 | disposition home or self-care (01) ==
PROVIDERS: Emergency Provider Student in an Organized Health Care Education/Training Program; PCP Family Medicine; Visit Provider Student in an Organized Health Care Education/Training Program
DX: N89.8 Other specified noninflammatory disorders of vagina (principal); C34.90 Malignant neoplasm of unspecified part of unspecified bronchus or lung; F41.9 Anxiety disorder, unspecified; E07.9 Disorder of thyroid, unspecified; Z79.01 Long term (current) use of anticoagulants; Z86.711 Personal history of pulmonary embolism; Z87.891 Personal history of nicotine dependence; Z79.899 Other long term (current) drug therapy; Z79.890 Hormone replacement therapy
CPT/HCPCS: 99282